=== PATIENT | male | born 1950 | race Caucasian/White ===

== ENCOUNTER → 2016-08-06 | Outpatient (CLI) | payer OTHER ==
[~2016-08-06] MED LIST: ASPI81TA28 PO; CRS10 PO; CZR25 PO; LPT40 PO; NTRGSL/4 UT; TPRSR/50 PO; TRIA0.1C20; WARF-246 PO
--- NOTE | 2016-08-07 03:58 | PAP/PSG TECHNICIAN REPORT ---
[facility] Soaker Hides Polysomnogram Report Study name: None Report date: 08/07/2016 Study date: 08/06/2016 Referring Physician: MARILU MENG M.D. Name: SARAY LORENZ Interpreting Physician: Fabrizio Costa M.D. Date of : 1950 Soaker Hides: Janice Diaz, PSGT. Sex: Male Age: 66 StudyType:C-pap Titration Weight: 243 lbs Height: 66 years, Height 6' 0" BMI: 32.95 Medications: SEE LIST OF 12 MEDICATIONS LISTED IN CHART. Patient History Pt. here for a titration sleep study, he had a baseline done on 06/17 with an ahi of 21.6.Pt. states that he isn't sure if he'll be able to have anything touch his face but is willing to try. Parameters Monitored NPSG: E1-M2, E2-M1, Fp1-M2, Fp2-M1, F3-M2, F4-M2, F4-M1, C3-M2, C4-M2, C4-M1, O1-M2, O2-M2, O2-M1, T3-M2, T4-M1, P3-M2, P4-M1, CHIN1, CHIN2, HR, EKG, Legs, PFLOW, SNOR, FLOW, CFLOW, Tidal Volume, THOR, ABDO, SpO2, PLTH, CPRESS, ETCO2 Wave, ETCO2, pH Sleep Architecture Sleep Stages Time at Lights Off 10:54:44 PM STAGES Time (min.) TST (%) Time at Lights On 2:00:44 AM Wake 81.5 -- Total Recording Time (TRT) 186.00 min. N1 12.0 11 Total Sleep Period (TSP) 130.0 min. N2 69.5 67 Total Sleep Time (TST) 104.5min. N3 7.0 7 Awake Time 81.5 min. REM 16.0 15 Wake after Sleep Onset 73.0 min. Sleep Efficiency (SE) 56 % Sleep Onset Latency (TAMMI) 8.5 min. Number of Stage 1 Shifts None Awakenings 4 Stage Changes 15 Number of REM periods 3 REM 16.0 15 REM Latency 65.5 min. NREM 88.5 85 Body Position Analysis Supine Right Left Side Prone Vertical Total Sleep Time (min.) 52.2 36.0 68.5 104.50 0.0 0.0 Total Sleep Time (%) 0% 34% 66% 100 0% N/A% Total Sleep Time REM (min.) 0.0 11.0 5.0 None 0.0 0.0 Total Sleep Time NREM (min.) 0.0 25.0 63.5 None 0.0 0.0 Intermittent Wake (min.) 52.2 15.1 14.2 None 0.0 0.0 Total Sleep Period (%) 2% None None None None None Arousals Myoclonus (PLM) * Events Count Index Events Count Index Spontaneous 3 2 Events Awake (PLMW) 0 0.0 Respiratory 2 1.1 Events Asleep w/ Arousal (PLMA) 3 1.7 PLM 3 2 Events Asleep w/o Arousal (PLMS) 25 14.4 Snoring 1 1 Total Asleep 28 16.1 Total 9 5 Total 28 9 Respiratory Analysis * CA OA MA CH H RERA Total Count 0 1 0 0 1 0 2 Index 0.0 0.6 0.0 0 0.6 0 1.1 Mean Duration 0.0 18.8 0.0 0.00 25.5 0.0 22.1 Longest Duration 0.0 18.8 0.0 0.00 0.0 0.0 25.5 Respiratory Event Summary Total Supine ~Supine Right Left Prone REM NREM Apneas Count 1 N/A 1 1 0 N/A 1 0 Index 0.6 N/A 1 1.7 0.0 N/A 4 0 Hypopneas (4% Desat) Count 1 N/A 1 1 0 N/A 1 0 Index 0.6 N/A 1 1.7 0.0 N/A 3.8 0.0 Apneas & All Hypopneas Count 2 N/A 2 2 0 N/A 2 0 Index 1.1 N/A 1 3 0 N/A 7.5 0.0 Respiratory Events (Violin Teacher+All Hyp+RERA) Count 2 N/A 2 2 0 N/A 2 0 Index 1.1 N/A 1 3.3 0.0 N/A 7.5 0.0 Respiratory Related Arousal Count 2 N/A 2 2 0 N/A 2 0 Index 1.1 N/A 1 3 0 N/A 8 0 Snoring Analysis Supine Right Left Prone REM NREM Total Snore duration 2.6 min Snores count N/A 70 64 N/A 14 120 134 Snore mean duration 1.2 Sec Snores index N/A 117 56 N/A 52.5 81.4 76.9 TST with snoring (%) 2.5% Desaturation Event Summary: Minimum %SpO2 Event Count Mean/Min/Max Duration(sec.) Desaturation Index % Time In Bed > 90 4 34.4 / 15.3 / 56.0 1.3 99.9 86 - 90 0 N/A 0.0 0.1 81 - 85 0 N/A 0.0 0.0 76 - 80 0 N/A 0.0 0.0 71 - 75 0 N/A 0.0 0.0 66 - 70 0 N/A 0.0 0.0 61 - 65 0 N/A 0.0 0.0 56 - 60 0 N/A 0.0 0.0 51 - 55 0 N/A 0.0 0.0 < 50 0 N/A 0.0 0.0 Total REM NREM Awake <50% 0.0 min. 0.0 min. 0.0 min. 0.0 min. 51 - 60% 0.0 min. 0.0 min. 0.0 min. 0.0 min. 61 - 70% 0.0 min. 0.0 min. 0.0 min. 0.0 min. 71 - 80% 0.0 min. 0.0 min. 0.0 min. 0.0 min. 81 - 90% 0.2 min. 0.0 min. 0.2 min. 0.0 min. 91 - 100% 184.1 min. 16.0 min. 88.2 min. 79.9 min. Average 94 94 94 95 Minimum SpO2 90 91 90 91 Desaturation Event Index 1.3 11.3 0.7 0.0 # Desat. Events below 89% N/A N/A N/A N/A Time(%) with Saturation below 89% 0.0 0.0 0.0 0.0 Time(min.) with Saturation below 89% 0.0 0.0 0.0 0.0 Time (mins) REM (mins) NREM (mins) % of TST SpO2 Below 90% 1 N/A N1 0.0 SpO2 Below 88% 0 0 0 0 Heart Rate Analysis Min (bpm) Max (bpm) Average (bpm) Awake 43 83 64 NREM 45 82 65 REM 46 75 65 Overall 45 82 65 Supplemental O2 Values Minimum O2 level: None Value Start Time End Time Soaker Hides Comments PAP Study: Mr. Lorenz slept in the right, left, and supine positions. No cardiac arrhythmia or PLM's noted. No bruxism noted. CPAP was initiated at +4 CMH2O and up-titrated to an optimal level of +6 CMH2O, which nearly eliminated all respiratory events and snoring. A medium [employer] Simplus, was used during titration Mr. Lorenz awoke to use the restroom zero times during the night. Mr. Lorenz awoke at 1:15 am with a lot of anxiety stating the that the mask felt like a vice, he started to hyperventilate and the mask was removed and he wanted the study to end. He stated that there was no way he could continue to wear the mask study was ended at 2:00 am.Pt. slept well up to that time and tolerated the treatment and mask well, increases were made for snoring. Therapy Event: Therapy (cm H20) 0 4 5 6 Total Time at Pressure (min.) 1.7 72.6 30.5 81.1 TST at Pressure (min.) 0.0 47.8 23.0 33.6 # Periods 1 1 1 1 Sleep Onset (min.) N/A 6.8 0.0 0.0 REM Onset (min.) N/A 72.3 0.0 28.6 Sleep Efficiency % 0 65 75 41 Wakefulness (%) 100.0 34.1 24.6 58.5 Wakefulness (min.) 1.7 24.8 7.5 47.5 NREM 1 (%) 0.0 15.8 1.6 0.0 NREM 1 (min.) 0.0 11.5 0.5 0.0 NREM 2 (%) 0.0 49.6 38.8 26.7 NREM 2 (min.) 0.0 36.0 11.9 21.6 NREM 3 (%) 0.0 0.0 0.0 8.6 NREM 3 (min.) 0.0 0.0 0.0 7.0 REM (%) 0.0 0.4 35.0 6.2 REM (min.) 0.0 0.3 10.7 5.0 # Arousals N/A 3 5 1 Arousal Index N/A 3.8 13.0 1.8 # Snore N/A 83 25 26 Snore Index N/A 104.2 65.1 46.4 AHI N/A 0.0 5.2 0.0 AHI Supine N/A N/A N/A N/A AHI Non-Supine N/A 0.0 5.2 0.0 NREM AHI N/A 0.0 0.0 0.0 REM AHI N/A 0.0 11.2 0.0 RDI N/A 0.0 5.2 0.0 # Obstructive N/A 0 1 0 # Central Ap N/A 0 0 0 # Mixed N/A 0 0 0 # Hypopneas N/A 0 1 0 RERAS N/A 0 0 0 Total Respiratory Events N/A 0 2 0 Time Below SpO2 89.00% (min.) 0.0 0.0 0.0 0.0 Mean NREM SpO2 (%) N/A 94 94 94 Mean REM SpO2 (%) N/A 93 94 92 Mean Sleep SpO2 (%) N/A 94 94 93 Min NREM SpO2 (%) N/A 90 93 92 Min REM SpO2 (%) N/A 93 92 91 Position Supine (min.) 0.0 0.0 0.0 0.0 Position Non-supine (min.) 0.0 47.8 23.0 33.6 LM Index Sleep N/A 25.1 20.8 0.0 LM Index NREM N/A 25.3 0.0 0.0 LM Index REM N/A 0.0 44.9 0.0 Mean Heart Rate (bpm) N/A 66 64 64 Min Heart Rate (bpm) N/A 46 49 45
--- NOTE | 2016-08-10 18:44 | POLYSOMNOGRAPH REPORT ---
CLINICAL DATA: A 66-year-old male with a BMI of 33 referred by Cici Fontenot and myself for a CPAP titration study. He had a baseline sleep study done on June 17, which showed an AHI of 21.6. He was somewhat reluctant to consider CPAP. SLEEP ARCHITECTURE: Total sleep period was 130 minutes. Total sleep time was 104.5 minutes divided between 88.5 minutes of non-REM sleep and 16 minutes of REM sleep. Sleep onset latency was 8.5 minutes. REM latency was 65.5 minutes. Sleep efficiency was 56%. Awake after sleep onset was 73 minutes. Sleep consisted of stage N1 11%, N2 67% N3 7%, and REM 15%. AROUSAL DATA: Nine arousals were recorded for an index of 5 per hour. PLM DATA: Twenty eight limb movements during sleep were noted for an index of 16.1 per hour with arousal index of 1.7 per hour. RESPIRATORY DATA: The AHI was 1.1. There was 1 obstructive apneic episode, 18.8 seconds in duration. There was 1 hypopneic episode, 25.5 seconds in duration. OXIMETRY DATA: No hypoxemia was seen. Oxygen sis was 90%. Mean saturation was 94%. EKG: Heart rates ranged from 45-82 beats per minute. No arrhythmias were noted. SUPERINTENDENT HORTICULTURE'S COMMENTS AND TREATMENT SUMMARY: The patient slept in the right, left, and supine positions. CPAP was started using a medium [employer] Simplus mask and was titrated up to 6 cm of water pressure. At 6 cm of water pressure, the patient slept for 33.6 minutes with an AHI of 0. He awoke at 1:15 a.m. with a lot of anxiety stating that the mask felt like a vise on his face and that he could no longer continue to wear the mask. The study was ended at 2:00 a.m. IMPRESSION: Moderate sleep apnea/hypopnea with a diagnostic apnea-hypopnea index of 21.6 corrected with CPAP 6 cm of water pressure using a [employer] medium Simplus mask. The patient had severe intolerance of the mask/CPAP and stopped the study before it was completed. RECOMMENDATIONS: The patient will be seen back in the clinic to discuss options for therapy. DARWIN
== END | disposition home or self-care (01) ==
LOC: C.NEUR 21:00
PROVIDERS: ATTEND Allergy & Immunology Allergy
DX: G47.33 Obstructive sleep apnea (adult) (pediatric) (principal)

== ENCOUNTER → 2016-08-18 | Outpatient (CLI) | payer OTHER ==
[~2016-08-18] VITALS: Ht 182.9 cm; Wt 108.0 kg
[2016-08-18 16:03] VITALS: BP 124/83; PULSE 47; Ht 182.9 cm; Wt 108.0 kg
== END | disposition home or self-care (01) ==
LOC: C.NEUR 14:38
PROVIDERS: ATTEND Internal Medicine Pulmonary Disease
DX: G47.33 Obstructive sleep apnea (adult) (pediatric) (principal); I25.10 Atherosclerotic heart disease of native coronary artery without angina pectoris; I10 Essential (primary) hypertension; I48.0 Paroxysmal atrial fibrillation; F40.240 Claustrophobia; R06.83 Snoring

== ENCOUNTER 2016-10-27 14:39 | Observation (INO) | payer OTHER ==
[~2016-10-27] VITALS: Ht 182.9 cm; Wt 103.1 kg
[~2016-10-27 14:39] MED LIST changes: -ASPI81TA28 PO; -CZR25 PO; -LPT40 PO; -TPRSR/50 PO
[2016-10-27] MEDS ORDERED: ASPIRIN 324 MG CHEW PO STA (16:15)
[2016-10-27] MEDS ORDERED: NITROGLYCERIN 0.4 MG SL PER TAB CHARGE SL STA (16:15)
--- NOTE | 2016-10-27 16:18 | EMERGENCY ROOM VISIT NOTE ---
History Report prepared by García: Duc Alejandre Under the Supervision of: Dr. Joby Soto M.D. First contact with patient: 16:07 Chief Complaint: CHEST PAIN Stated Complaint: DIZZY, TINGLING LEGS, CHEST DISCOMFORT Nursing Triage Summary: Pt c/o dizzy spell at 1130 at work and legs went numb and "weighed about 100 pounds a piece" and he felt "flushed", pt then felt "discomfort" a "tightness" in the left side of his chest. Pt then went home, called tele nurse and came to ER. At this time pt denies dizziness and numb/heavy legs, pt c/o only of discomfort in his chest. Hx afib. History of Present Illness The patient is a 66 year old male who presents to the Emergency Room with complaints of an episode of dizziness that occurred while at work around 1130 today. The patient states that he felt so dizzy that he "blacked out" for a second. He denies feeling as though his heart was beating faster. He did not fall during episode of dizziness. Associated symptoms include numbness in legs. He adds that his legs felt as though they weighed "100 pounds a piece." Upon arrival to the ED, the patient also began to experience a "squeezing of left chest." This sensation mostly resolved although he does continue to complain of a persistent "pressure" to left chest at this time. The patient denies currently feeling dizzy or experiencing numbness/heaviness to legs. The patient has a history of atrial fibrillation and a prior heart attack. 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 He denies hematochezia, melena, urinary symptoms, or any additional associated symptoms. Source of History: patient Onset: 1130 today Position: other (Global ) Timing: resolved Modifying Factors (Worsening): other (None) Modifying Factors (Relieving): other (None) Associated Symptoms: + numbness (In legs ), No hematochezia, No melena, No urinary symptoms Review of Systems See HPI for pertinent positives & negatives. A total of 10 systems reviewed and were otherwise negative. Past Medical & Surgical Medical Problems: (1) Atrial fibrillation (2) Near syncope Family History Diabetes mellitus Heart disease Social History Smoking Status: Former Smoker Marital Status: Housing Status: lives with family Occupation Status: retired Current/Historical Medications Scheduled Aspirin (Aspirin Ec), 81 MG PO DAILY Atorvastatin (Atorvastatin Calcium), 20 MG PO QPM Losartan Potassium (Losartan Potassium), 25 MG PO QPM Metoprolol Succinate (Metoprolol Succinate ER), 50 MG PO BID Warfarin Sodium (Warfarin Sodium), 7.5 MG PO 2XWK Warfarin Sodium (Warfarin Sodium), 5 MG PO 5XWK Scheduled PRN Nitroglycerin (Nitrostat), 0.4 MG UT UD PRN for Chest Pain Allergies Coded Allergies: BEE STING (Verified Allergy, Severe, CHOKING WITH GENERALIZED SWELLING, ) Procaine (Verified Allergy, Unknown, ANAPHYLAXIS, 04/24/15) XYLOCAINE/LIDOCAINE OKAY [place] (Verified Allergy, Unknown, HIVES, 04/24/15) Physical Exam Vital Signs Date Time Temp Pulse Resp B/P Pulse Ox O2 Delivery O2 Flow Rate FiO2 10/27/16 18:54 81 18 151/105 97 Room Air 10/27/16 17:00 59 18 119/80 94 Room Air 10/27/16 16:24 77 10/27/16 16:20 95 Room Air 10/27/16 16:20 96 18 125/105 95 Room Air 10/27/16 14:48 36.5 70 18 150/93 98 Room Air 10/27/16 14:46 98 Room Air Physical Exam GENERAL: Patient appears to be experiencing minimal distress. HEENT: No acute trauma, normocephalic atraumatic, mucous membranes moist, no nasal congestion, no scleral icterus. NECK: No stridor, no adenopathy, no meningismus, trachea is midline. LUNGS: No dyspnea. Clear to auscultation and equal bilaterally. No wheeze, no rhonchi. HEART: Regular rate and rhythm. No murmurs, rubs, gallops appreciated. ABDOMEN: Soft, nontender, bowel sounds positive, no masses appreciated, no peritonitis. BACK: No midline tenderness, no CVA tenderness EXTREMITIES: Normal motion all extremities, no cyanosis, no edema. NEUROLOGIC: Alert and oriented, no acute motor or sensory deficits, no focal weakness, cranial nerves grossly intact. SKIN: No rash, no jaundice, no diaphoresis. Medical Decision & Procedures ER Provider Diagnostic Interpretation: X ray results are stated below per my interpretation and the radiologist's interpretation. SINGLE VIEW CHEST CLINICAL HISTORY: Atypical chest pain. FINDINGS: An AP, portable, upright chest radiograph is compared to study dated 09/20/2014. The examination is degraded by portable technique and apical lordotic positioning. The patient is status post midline sternotomy. The heart is markedly enlarged and there is atherosclerotic calcification of the thoracic aorta. The pulmonary vasculature is noncongested. Chronic interstitial thickening is unchanged. There is left basilar atelectasis. No airspace consolidation, large pleural effusion, or pneumothorax is seen. The bony thorax is grossly intact. IMPRESSION: Cardiomegaly with no acute cardiopulmonary abnormality. Electronically signed by: Jamil Serrano M.D. 10/27/2016 4:32 PM Dictated Date/Time: 10/27/2016 4:31 PM Laboratory Results 10/27/16 16:20 Red Blood Count 5.04, Mean Corpuscular Volume 85.9, Mean Corpuscular Hemoglobin 29.8, Mean Corpuscular Hemoglobin Concent 34.6, Mean Platelet Volume 10.1, Neutrophils (%) (Auto) 61.1, Lymphocytes (%) (Auto) 28.7, Monocytes (%) (Auto) 8.4, Eosinophils (%) (Auto) 1.3, Basophils (%) (Auto) 0.3, Neutrophils # (Auto) 3.72, Lymphocytes # (Auto) 1.75, Monocytes # (Auto) 0.51, Eosinophils # (Auto) 0.08, Basophils # (Auto) 0.02 10/27/16 16:20 Test 10/27/16 16:20 10/27/16 17:13 White Blood Count 6.09 K/uL (4.8-10.8) Red Blood Count 5.04 M/uL (4.7-6.1) Hemoglobin 15.0 g/dL (14.0-18.0) Hematocrit 43.3 % (42-52) Mean Corpuscular Volume 85.9 fL (80-100) Mean Corpuscular Hemoglobin 29.8 pg (25-34) Mean Corpuscular Hemoglobin Concent 34.6 g/dl (32-36) Platelet Count 215 K/uL (130-400) Mean Platelet Volume 10.1 fL (7.4-10.4) Neutrophils (%) (Auto) 61.1 % Lymphocytes (%) (Auto) 28.7 % Monocytes (%) (Auto) 8.4 % Eosinophils (%) (Auto) 1.3 % Basophils (%) (Auto) 0.3 % Neutrophils # (Auto) 3.72 K/uL (1.4-6.5) Lymphocytes # (Auto) 1.75 K/uL (1.2-3.4) Monocytes # (Auto) 0.51 K/uL (0.11-0.59) Eosinophils # (Auto) 0.08 K/uL (0-0.5) Basophils # (Auto) 0.02 K/uL (0-0.2) RDW Standard Deviation 40.6 fL (36.4-46.3) RDW Coefficient of Variation 12.9 % (11.5-14.5) Immature Granulocyte % (Auto) 0.2 % Immature Granulocyte # (Auto) 0.01 K/uL (0.00-0.02) Anion Gap 7.0 mmol/L (3-11) Est Creatinine Clear Calc Drug Dose 91.0 ml/min Estimated GFR () 90.5 Estimated GFR (Non- 78.1 BUN/Creatinine Ratio 17.8 (10-20) Calcium Level 8.9 mg/dl (8.5-10.1) Total Creatine Kinase 165 U/L (39-308) Creatine Kinase MB 2.3 ng/ml (0.5-3.6) Creatine Kinase MB Ratio 1.4 (0-3.0) Troponin I 0.103 ng/ml (0-0.045) Prothrombin Time 25.8 SECONDS (9.0-12.0) Prothromb Time International Ratio 2.3 (0.9-1.1) Activated Partial Thromboplast Time 32.4 SECONDS (21.0-31.0) Partial Thromboplastin Ratio 1.2 Laboratory results as reviewed by me. Medications Administered Medications (Trade) Dose Ordered Sig/Francisco Route Start Time Stop Time Status Last Admin Dose Admin Aspirin (Aspirin Chew) 324 mg NOW STAT PO 10/27/16 16:15 10/27/16 16:16 DC 10/27/16 16:22 324 MG Nitroglycerin (Nitrostat Tab) 0.2 mg NOW STAT SL 10/27/16 16:15 10/27/16 16:16 DC 10/27/16 16:15 0.2 MG ECG Indication: chest pain Rate (beats per minute): 69 Rhythm: atrial fibrillation Findings: no acute ischemic change Comparison ECG Date: Sep 21, 2014 Change: no significant change ED Course 1610: The patient was evaluated in room C9. A complete history and physical exam was performed. 1615: The Nitroglycerin 0.2 mg SL, Aspirin 324 mg PO. 1706: The patient has a positive Troponin. 1714: Upon reevaluation, there is no further chest pain. He is agreeable with the treatment plan at this time. 171: I discussed the patient's case with Dr. Shepard ([facility]). She will evaluate the patient for further management and care. Medical Decision Differential: Cardiac Ischemia (STEMI, NSTEMI, Unstable Angina, etc), Aortic Dissection, Arrhythmia, Pulmonary Embolism, Pneumonia, Pneumothorax, MSK, Infectious, Pericarditis/Myocarditis, Esophageal Rupture, Gastrointestinal, amongst other pathologies entertained. 66 yr old male with CABG 16 yrs ago arrives with near syncope/lightheadedness now resolved though mild left chest discomfort which resolved with SLNTG. Afib on EKG with similar morphology to previous EKG. NO STEMI. CXR clear and no evidence dissection. On coumadin and INR therapeutic thus will hold on heparin. Trop is elevated though unclear if this is now his baseline or whether new. Will need to be considered NSTEMI until proven otherwise. Stable throughout ED stay and agreeable to coming in for further evaluation. Consults Time Called: 1714 Consulting Physician: Dr. Shepard ([facility]) Returned Call: 1715 I discussed the patient's case with Dr. Shepard ([facility]). She will evaluate the patient for further management and care. Impression Primary Impression: NSTEMI (non-ST elevated myocardial infarction) Scribe Attestation The scribe's documentation has been prepared under my direction and personally reviewed by me in its entirety. I confirm that the note above accurately reflects all work, treatment, procedures, and medical decision making performed by me. Departure Information Dispostion Being Evaluated By Hospitalist Ankit Hull M.D. (PCP) Patient Instructions My [facility]
--- NOTE | 2016-10-27 16:33 | DIAGNOSTIC IMAGING REPORT ---
SINGLE VIEW CHEST CLINICAL HISTORY: Atypical chest pain. FINDINGS: An AP, portable, upright chest radiograph is compared to study dated 09/20/2014. The examination is degraded by portable technique and apical lordotic positioning. The patient is status post midline sternotomy. The heart is markedly enlarged and there is atherosclerotic calcification of the thoracic aorta. The pulmonary vasculature is noncongested. Chronic interstitial thickening is unchanged. There is left basilar atelectasis. No airspace consolidation, large pleural effusion, or pneumothorax is seen. The bony thorax is grossly intact. IMPRESSION: Cardiomegaly with no acute cardiopulmonary abnormality. Electronically signed by: Jamil Serrano M.D. 10/27/2016 4:32 PM Dictated Date/Time: 10/27/2016 4:31 PM
[2016-10-27 16:36] LABS: BASO % 0.3 %; BASO ABS # 0.02 K/uL (0-0.2); COMPLETE YES; EOS % 1.3 %; HEMATOCRIT 43.3 % (42-52); IG% 0.2 %; LYMPH % 28.7 %; LYMPH ABS # 1.75 K/uL (1.2-3.4); MEAN CELL VOLUME 85.9 fL (80-100); MEAN CORPUSCULAR HEMOGLOBIN 29.8 pg (25-34); MEAN CORPUSCULAR HGB CONC 34.6 g/dl (32-36); MEAN PLATELET VOLUME 10.1 fL (7.4-10.4); MONO % 8.4 %; NEUT % 61.1 %; PLATELET COUNT 215 K/uL (130-400); RED BLOOD COUNT 5.04 M/uL (4.7-6.1); WHITE BLOOD COUNT 6.09 K/uL (4.8-10.8)
[2016-10-27] MEDS ORDERED: LPT40 PO (16:47)
[2016-10-27] MEDS ORDERED: CZR25 PO (16:47)
[2016-10-27 16:57] LABS: BUN/CREATININE RATIO 17.8 (10-20); CALCIUM 8.9 mg/dl (8.5-10.1); POTASSIUM 4.2 mmol/L (3.5-5.1)
[2016-10-27 17:04] LABS: CKMB/CK RATIO 1.4 (0-3.0)
[2016-10-27 17:30] LABS: INR 2.3 (0.9-1.1); PARTIAL THROMBOPLASTIN RATIO 1.2; PROTHROMBIN TIME (PATIENT) 25.8 SECONDS (9.0-12.0)
[2016-10-27] MEDS ORDERED: TPRSR/50 PO (18:06)
[2016-10-27] MEDS ORDERED: ASPI81TA28 PO (18:06)
--- NOTE | 2016-10-27 19:06 | History and Physical ---
History & Physical Date & Time of Service: Oct 27, 2016 at 18:53 Chief Complaint: Dizzy, Tingling Legs, Chest Discomfort Primary Care Physician: Ankit Turpin M.D. History of Present Illness Source: patient, family, clinic records, hospital records This patient is a pleasant 66-year-old male that presents the emergency department with complaints of a presyncopal episode earlier today. The patient was at work. He was bending over picking up something off of the floor when he all of a sudden felt a sharper pain in his left lower abdomen. He then started to see spots. He said that his legs felt heavy. he reports that he blacked out for a second. He did not fall. He denies any injuries. The pain in the left lower abdomen was fleeting. The episode occurred at approximately 12:30 PM today. He does note that intermittently over the last few years he has felt a sharp pain in his left lower abdomen. He denies any fever or chills. No changes in bowel habits. The patient's past medical history is significant for paroxysmal atrial fibrillation, coronary artery disease status post [place] and a ventricular aneurysm. Workup in the emergency department reveals an elevated troponin at 0.103. The patient is anticoagulated on Coumadin. INR is therapeutic at 2.5. Other labs were unremarkable. EKG shows atrial fibrillation with a rate of 69 bpm. No acute ischemic changes noted. Past Medical/Surgical History Medical Problems: (1) Atrial fibrillation Ischemic cardiomyopathy with an EF of 40-50% according to an echo performed and 10/16 Coronary artery disease status post [place] Status post CABG 3 and apical aneurysm resection in 1999 at [place] History of diverticulitis Obstructive sleep apnea Paroxysmal atrial fibrillation Status post sinus surgery Family History Diabetes mellitus Heart disease Mother of ovarian cancer at the age of 68. She also had diabetes. Father of an WV at the age of 71. Social History Smoking Status: Former Smoker (quit smoking in the 80s.) Alcohol Use: occasionally Marital Status: Housing status: lives with significant other, other Occupational Status: employed Immunizations History of Influenza Vaccine: No Influenza Vaccine Date: May 12, 2007 History of Tetanus Vaccine?: Yes Tetanus Immunization Date: Feb 18, 2007 History of Pneumococcal: Yes Pneumococcal Date: Sep 03, 2006 History of Hepatitis B Vaccine: No Multi-Drug Resistant Organisms History of MDRO: No Allergies Coded Allergies: BEE STING (Verified Allergy, Severe, CHOKING WITH GENERALIZED SWELLING, ) Procaine (Verified Allergy, Unknown, ANAPHYLAXIS, 04/24/15) XYLOCAINE/LIDOCAINE OKAY [place] (Verified Allergy, Unknown, HIVES, 04/24/15) Home Medications Scheduled Aspirin (Aspirin Ec), 81 MG PO DAILY Atorvastatin (Atorvastatin Calcium), 20 MG PO QPM Losartan Potassium (Losartan Potassium), 25 MG PO QPM Metoprolol Succinate (Metoprolol Succinate ER), 50 MG PO BID Warfarin Sodium (Warfarin Sodium), 7.5 MG PO 2XWK Warfarin Sodium (Warfarin Sodium), 5 MG PO [id number] Scheduled PRN Nitroglycerin (Nitrostat), 0.4 MG UT UD PRN for Chest Pain Review of Systems 10 system review performed and negative unless noted in HPI or below Physical Exam Vital Signs Date Time Temp Pulse Resp B/P Pulse Ox O2 Delivery O2 Flow Rate FiO2 10/27/16 17:00 59 18 119/80 94 Room Air 10/27/16 16:24 77 10/27/16 16:20 95 Room Air 10/27/16 16:20 96 18 125/105 95 Room Air 10/27/16 14:48 36.5 70 18 150/93 98 Room Air 10/27/16 14:46 98 Room Air General Appearance: no apparent distress Head: normocephalic Eyes: EOMI ENT: + pertinent finding (oral mucosa moist) Neck: no JVD Respiratory/Chest: lungs clear Cardiovascular: no murmur, + irregularly irregular Abdomen/GI: normal bowel sounds, soft, + pertinent finding (mild tenderness to palpation noted in the suprapubic region and the left lower quadrant. No guarding or rebound tenderness.) Extremities/Musculoskelatal: no calf tenderness, no pedal edema Neurologic/Psych: no motor/sensory deficits, oriented x 3 Skin: warm/dry Diagnostics Laboratory Results Results Past 24 Hours Test 10/27/16 16:20 10/27/16 17:13 Range/Units White Blood Count 6.09 4.8-10.8 K/uL Red Blood Count 5.04 4.7-6.1 M/uL Hemoglobin 15.0 14.0-18.0 g/dL Hematocrit 43.3 42-52 % Mean Corpuscular Volume 85.9 80-100 fL Mean Corpuscular Hemoglobin 29.8 25-34 pg Mean Corpuscular Hemoglobin Concent 34.6 32-36 g/dl Platelet Count 215 130-400 K/uL Mean Platelet Volume 10.1 7.4-10.4 fL Neutrophils (%) (Auto) 61.1 % Lymphocytes (%) (Auto) 28.7 % Monocytes (%) (Auto) 8.4 % Eosinophils (%) (Auto) 1.3 % Basophils (%) (Auto) 0.3 % Neutrophils # (Auto) 3.72 1.4-6.5 K/uL Lymphocytes # (Auto) 1.75 1.2-3.4 K/uL Monocytes # (Auto) 0.51 0.11-0.59 K/uL Eosinophils # (Auto) 0.08 0-0.5 K/uL Basophils # (Auto) 0.02 0-0.2 K/uL RDW Standard Deviation 40.6 36.4-46.3 fL RDW Coefficient of Variation 12.9 11.5-14.5 % Immature Granulocyte % (Auto) 0.2 % Immature Granulocyte # (Auto) 0.01 0.00-0.02 K/uL Sodium Level 142 136-145 mmol/L Potassium Level 4.2 3.5-5.1 mmol/L Chloride Level 108 98-107 mmol/L Carbon Dioxide Level 27 21-32 mmol/L Anion Gap 7.0 3-11 mmol/L Blood Urea Nitrogen 18 7-18 mg/dl Creatinine 1.00 0.60-1.40 mg/dl Est Creatinine Clear Calc Drug Dose 91.0 ml/min Estimated GFR () 90.5 Estimated GFR (Non- 78.1 BUN/Creatinine Ratio 17.8 10-20 Random Glucose 84 70-99 mg/dl Calcium Level 8.9 8.5-10.1 mg/dl Total Creatine Kinase 165 39-308 U/L Creatine Kinase MB 2.3 0.5-3.6 ng/ml Creatine Kinase MB Ratio 1.4 0-3.0 Troponin I 0.103 0-0.045 ng/ml Prothrombin Time 25.8 9.0-12.0 SECONDS Prothromb Time International Ratio 2.3 0.9-1.1 Activated Partial Thromboplast Time 32.4 21.0-31.0 SECONDS Partial Thromboplastin Ratio 1.2 Diagnostic Radiology Patient: SARAY HOUSER Address1: [address] [place] [address] Rec: [id number] Address2: Acct ID: [id number] [facility] Zip: [place] [address] Date: 1950 Sex: M Room/Bed: Ref Phy: Matheus Coronado M.D. SC: CHARITO Att Phy: Report #: [id number] Tara Phy: Ankit Turpin M.D. Test: [id number] Admit Phy: Practicing Md Anesthesiologist: JACKIE Interpreting Phy: Jamil Serrano M.D. Diagnosis: DIZZY, TINGLING LEGS, CHEST DISCOMFORT Ordering Phy: Joby Soto M.D. Service Date: 10/27/16 Admit Date: 10/27/16 MNE: [id number] CONF: DICTATED BY: Jamil Serrano M.D.]] CC: Matheus Coronado M.D. Hester, Christopher E., M.D. McKinley, Daniel F., M.D. Endcc: [~ rep ct add3]] SINGLE VIEW CHEST CLINICAL HISTORY: Atypical chest pain. FINDINGS: An AP, portable, upright chest radiograph is compared to study dated 09/20/2014. The examination is degraded by portable technique and apical lordotic positioning. The patient is status post midline sternotomy. The heart is markedly enlarged and there is atherosclerotic calcification of the thoracic aorta. The pulmonary vasculature is noncongested. Chronic interstitial thickening is unchanged. There is left basilar atelectasis. No airspace consolidation, large pleural effusion, or pneumothorax is seen. The bony thorax is grossly intact. IMPRESSION: Cardiomegaly with no acute cardiopulmonary abnormality. Electronically signed by: Jamil Serrano M.D. 10/27/2016 4:32 PM Dictated Date/Time: 10/27/2016 4:31 PM The status of this report is Signed. Draft = Not yet reviewed or approved by Radiologist. Signed = Reviewed and approved by Radiologist. EKG A. fib 69 bpm Q waves noted in the anterior and lateral leads Impression Assessment and Plan 66-year-old male with a significant cardiac history presents emergency department with a presyncopal episode preceded by fleeting left lower quadrant abdominal pain While in the emergency department, developed chest pressure that was relieved with nitroglycerin. Now pain-free. Mild elevation in troponin at 0.103 Presyncopal episode and developing chest pain/pressure in the emergency department-The patient could've had a burst of A. fib causing his pre-syncopal episode. The patient does however have an elevated troponin at 0.103. Troponin were also mildly elevated in September. This could be chronic. -Observe in telemetry -Trend cardiac enzymes -Echocardiogram just performed last week. No need to repeat now -Cardiology consult -Continue outpatient regimen as follows: Aspirin 81 mg daily, atorvastatin 20 mg daily, losartan 25 mg daily, metoprolol extended release 50 mg twice daily, warfarin 5 mg Wednesday, Wednesday and Wednesday, warfarin 7.5 mg on Wednesday, , Wednesday Obstructive sleep apnea-currently not using a CPAP -Follow up as an outpatient -Patient is being fitted for a special mask A. fib-rate controlled as noted above -Coumadin as noted above -Daily INR DVT prophylaxis -Coumadin -Teds, SCDs CODE STATUS -LEVEL I FULL CODE This chart was completed in part utilizing [employer] Speech Voice Recognition software. Attempts were made to minimize the grammatical errors, random word insertions, pronoun errors and incomplete sentences. Any formal questions or concerns about the content, text or information contained within the body of this dictation should be directly addressed to the provider for clarification. Level of Care Telemetry Resuscitation Status FULL RESUSCITATION VTE Prophylaxis Risk Level: Low Given or contraindicated: Warfarin (Coumadin), T.E.D. Stockings, SCD's Reviewed: Pt Seen/Exam by Me History Physician Slab Miller Operator Supervision Note: I interviewed and examined the patient. Discussed with EFRAIN Rodriguez and agree with findings and plan as documented in the note. Any exceptions or clarifications are listed here: This is a 66-year-old male with history of ischemic cardiomyopathy, CAD status post three-vessel CABG, paroxysmal atrial fibrillation chronic anticoagulation, who presents today with a presyncopal episode and subsequent chest pain while in the ER that was left-sided and was relieved with nitroglycerin. He had a positive troponin in the ER of 0.1. To clarify from above, he reports he did not have any left groin pain until he was sitting in the ER; he did not have any pain at the time he bent over and had the presyncopal episode. He has never had anything like this happen before. He reports it took about 30 minutes before he finally felt like he couldn't focus with his vision again. He did not have any weakness or slurred speech, he then states that he performed a "stroke test" on himself with his coworkers and he had no findings consistent with stroke. He simply felt very lightheaded after bending over and standing back up but never actually passed completely out as he never lost tone in his body or fell down. Vital signs reviewed, orthostatic vital signs have not been performed yet at the time of admission No acute distress alert awake and oriented 3 Irregularly irregular rhythm with a normal rate, no murmurs gallops or rubs appreciated Lungs clear to auscultation bilaterally without wheezes, rales or rhonchi Abdomen soft, nondistended, nontender, positive bowel sounds, no inguinal hernias, no scrotal masses, no tenderness in the left groin Extremities trace pitting edema to mid tibia bilaterally Skin no rashes 66-year-old male with history of CAD and ischemic cardiomyopathy, here with the presyncopal episode, typical anginal chest pain, and a positive troponin. Presyncopal episode may have been vasovagal versus orthostatic in nature. -Serial cardiac biomarkers and ECGs-if troponin trends upward, would likely need cardiac catheterization -Cardiology consult appreciated -Telemetry monitoring -Orthostatic vital signs to be checked every shift Documented By: Maxine Shepard
[2016-10-27] MEDS ORDERED: WARFARIN SOD 5 MG TAB PO SCH (19:15)
[2016-10-27] MEDS ORDERED: ONDANSETRON INJ 2 MG/ML 2 ML VIAL IV PRN (19:15)
[2016-10-27] MEDS ORDERED: ALUMINUM/MAGNESIUM/SIMETH (MAALOX MAX) 30 ML UDC PO PRN (19:15)
[2016-10-27] MEDS ORDERED: ACETAMINOPHEN 325 MG TAB PO PRN (19:15)
[2016-10-27] MEDS ORDERED: NITROGLYCERIN 0.4 MG SL PER TAB CHARGE SL PRN (19:15)
[2016-10-27] MEDS ORDERED: METOPROLOL SUCC 50MG EXT REL TAB PO SCH (21:00)
[2016-10-27] MEDS ORDERED: IV FLUIDS COMPLETED PRN (21:15)
[2016-10-27] MEDS: ATORVASTATIN 20 MG TAB PO SCH (21:40)
[2016-10-27] MEDS: LOSARTAN POTASSIUM 25 MG TAB PO SCH (21:41)
[2016-10-27] MEDS ORDERED: WARFARIN SOD 5 MG TAB PO ONE (22:15)
[2016-10-28] VITALS (9 sets, daily range): BP systolic 118–148; BP diastolic 64–99; PULSE 52–77; TEMP 36.5–37.3; O2SAT 94–97; Ht 182.9 cm; Wt 103.1 kg
[2016-10-28 01:40] LABS: CKMB/CK RATIO 1.3 (0-3.0)
[2016-10-28] MEDS ORDERED: INFLUENZA VIRUS QUAD VACCINE 0.5 ML SYR IM. ONE (02:45)
[2016-10-28] MEDS ORDERED: INFLUENZA ADMINISTRATION CHARGE ONE (02:45)
[2016-10-28 03:35] LABS: BASO % 0.2 %; BASO ABS # 0.01 K/uL (0-0.2); COMPLETE YES; EOS % 1.8 %; HEMATOCRIT 39.4 % (42-52); LYMPH ABS # 1.72 K/uL (1.2-3.4); MEAN CELL VOLUME 85.7 fL (80-100); MEAN CORPUSCULAR HEMOGLOBIN 30.4 pg (25-34); MEAN CORPUSCULAR HGB CONC 35.5 g/dl (32-36); MEAN PLATELET VOLUME 9.8 fL (7.4-10.4); MONO % 10.4 %; NEUT % 52.6 %; PLATELET COUNT 192 K/uL (130-400); WHITE BLOOD COUNT 4.92 K/uL (4.8-10.8)
[2016-10-28 03:54] LABS: PROTHROMBIN TIME (PATIENT) 22.1 SECONDS (9.0-12.0)
[2016-10-28 04:00] LABS: BUN/CREATININE RATIO 16.1 (10-20); CALCIUM 8.3 mg/dl (8.5-10.1); CREATININE 1.1 mg/dl (0.60-1.40); MAGNESIUM 2.4 mg/dl (1.8-2.4); POTASSIUM 3.9 mmol/L (3.5-5.1)
--- NOTE | 2016-10-28 07:27 | Progress Note ---
Progress Note Date of Service Oct 28, 2016. Progress Note Received call at 2:15 am about patient become bradycardic in the 40's with pauses as long as 2 secs I went to assess the patient, he complained of some mild chest "pressure", no pain- resolved shortly after Troponin elevated from admission but trending down. EKG did not capture the bradycardic episodes Patient was watched for the next few hours and did not have any further episodes However at about 6 am, he had what looked like runs of tachycardia EKG was repeated and did not capture this Wonder about Tachy-claudia / sick sinus? especially given his presentation after syncopal episode Cardiology consulted.
[2016-10-28] MEDS: ASPIRIN 81 MG ECTAB PO SCH (08:04)
--- NOTE | 2016-10-28 08:17 | Hospitalist Progress Note ---
Hospitalist Progress Note Date of Service Oct 28, 2016. Subjective Pt evaluation today including: conversation w/ patient, physical exam, chart review Medications Medications (Trade) Dose Ordered Sig/Francisco Route Start Time Stop Time Status Last Admin Dose Admin Aspirin (Aspirin Chew) 324 mg NOW STAT PO 10/27/16 16:15 10/27/16 16:16 DC 10/27/16 16:22 324 MG Nitroglycerin (Nitrostat Tab) 0.2 mg NOW STAT SL 10/27/16 16:15 10/27/16 16:16 DC 10/27/16 16:15 0.2 MG Aspirin (Ecotrin Tab) 81 mg DAILY PO 10/28/16 09:00 11/27/16 08:59 10/28/16 08:04 81 MG Atorvastatin Calcium (Lipitor Tab) 20 mg QPM PO 10/27/16 21:00 11/26/16 20:59 10/27/16 21:40 20 MG Losartan Potassium (coZAAR TAB) 25 mg QPM PO 10/27/16 21:00 11/26/16 20:59 10/27/16 21:41 25 MG Metoprolol Succinate (Toprol Xl Tab) 50 mg BID PO 10/27/16 21:00 11/26/16 20:59 Future Hold 10/27/16 21:39 50 MG Warfarin Sodium (Coumadin Tab) 5 mg NOW ONCE PO 10/27/16 22:15 10/27/16 22:40 DC 10/27/16 22:15 5 MG Objective Vital Signs Date Time Temp Pulse Resp B/P Pulse Ox O2 Delivery O2 Flow Rate FiO2 10/28/16 04:00 Room Air 10/28/16 03:45 36.8 66 18 131/75 95 Room Air 10/28/16 00:03 36.6 52 22 143/93 95 Room Air 146/99 148/92 10/28/16 00:00 Room Air 10/27/16 23:45 36.5 72 18 119/72 96 10/27/16 23:08 119/72 10/27/16 21:43 72 10/27/16 21:42 64 18 128/85 96 Room Air 10/27/16 20:29 65 18 145/95 95 Room Air 10/27/16 18:54 81 18 151/105 97 Room Air 10/27/16 17:00 59 18 119/80 94 Room Air 10/27/16 16:24 77 10/27/16 16:20 95 Room Air 10/27/16 16:20 96 18 125/105 95 Room Air 10/27/16 14:48 36.5 70 18 150/93 98 Room Air 10/27/16 14:46 98 Room Air Laboratory Results Last 24 Hours Test 10/27/16 16:20 10/27/16 17:13 10/28/16 01:00 10/28/16 03:06 White Blood Count 6.09 K/uL 4.92 K/uL Red Blood Count 5.04 M/uL 4.60 M/uL Hemoglobin 15.0 g/dL 14.0 g/dL Hematocrit 43.3 % 39.4 % Mean Corpuscular Volume 85.9 fL 85.7 fL Mean Corpuscular Hemoglobin 29.8 pg 30.4 pg Mean Corpuscular Hemoglobin Concent 34.6 g/dl 35.5 g/dl Platelet Count 215 K/uL 192 K/uL Mean Platelet Volume 10.1 fL 9.8 fL Neutrophils (%) (Auto) 61.1 % 52.6 % Lymphocytes (%) (Auto) 28.7 % 35.0 % Monocytes (%) (Auto) 8.4 % 10.4 % Eosinophils (%) (Auto) 1.3 % 1.8 % Basophils (%) (Auto) 0.3 % 0.2 % Neutrophils # (Auto) 3.72 K/uL 2.59 K/uL Lymphocytes # (Auto) 1.75 K/uL 1.72 K/uL Monocytes # (Auto) 0.51 K/uL 0.51 K/uL Eosinophils # (Auto) 0.08 K/uL 0.09 K/uL Basophils # (Auto) 0.02 K/uL 0.01 K/uL RDW Standard Deviation 40.6 fL 40.3 fL RDW Coefficient of Variation 12.9 % 12.9 % Immature Granulocyte % (Auto) 0.2 % 0.0 % Immature Granulocyte # (Auto) 0.01 K/uL 0.00 K/uL Sodium Level 142 mmol/L 143 mmol/L Potassium Level 4.2 mmol/L 3.9 mmol/L Chloride Level 108 mmol/L 108 mmol/L Carbon Dioxide Level 27 mmol/L 26 mmol/L Anion Gap 7.0 mmol/L 9.0 mmol/L Blood Urea Nitrogen 18 mg/dl 18 mg/dl Creatinine 1.00 mg/dl 1.10 mg/dl Est Creatinine Clear Calc Drug Dose 91.0 ml/min 82.9 ml/min Estimated GFR () 90.5 80.6 Estimated GFR (Non- 78.1 69.6 BUN/Creatinine Ratio 17.8 16.1 Random Glucose 84 mg/dl 109 mg/dl Calcium Level 8.9 mg/dl 8.3 mg/dl Total Creatine Kinase 165 U/L 127 U/L Creatine Kinase MB 2.3 ng/ml 1.6 ng/ml Creatine Kinase MB Ratio 1.4 1.3 Troponin I 0.103 ng/ml 0.089 ng/ml 0.088 ng/ml Prothrombin Time 25.8 SECONDS 22.1 SECONDS Prothromb Time International Ratio 2.3 2.0 Activated Partial Thromboplast Time 32.4 SECONDS Partial Thromboplastin Ratio 1.2 Magnesium Level 2.4 mg/dl Diagnostic Results [~ rep ct add3]] SINGLE VIEW CHEST CLINICAL HISTORY: Atypical chest pain. FINDINGS: An AP, portable, upright chest radiograph is compared to study dated 09/20/2014. The examination is degraded by portable technique and apical lordotic positioning. The patient is status post midline sternotomy. The heart is markedly enlarged and there is atherosclerotic calcification of the thoracic aorta. The pulmonary vasculature is noncongested. Chronic interstitial thickening is unchanged. There is left basilar atelectasis. No airspace consolidation, large pleural effusion, or pneumothorax is seen. The bony thorax is grossly intact. IMPRESSION: Cardiomegaly with no acute cardiopulmonary abnormality. Assessment and Plan 66-year-old male with a significant cardiac history presents emergency department with a presyncopal episode preceded by fleeting left lower quadrant abdominal pain While in the emergency department, developed chest pressure that was relieved with nitroglycerin. Now pain-free. Mild elevation in troponin at 0.103 Presyncopal episode and developing chest pain/pressure in the emergency department-The patient could've had a burst of A. fib causing his pre-syncopal episode. The patient does however have an elevated troponin at 0.103. Troponin were also mildly elevated in September. This could be chronic. -Observe in telemetry -Trend cardiac enzymes -Echocardiogram just performed last week. No need to repeat now -Cardiology consult -Continue outpatient regimen as follows: Aspirin 81 mg daily, atorvastatin 20 mg daily, losartan 25 mg daily, metoprolol extended release 50 mg twice daily, warfarin 5 mg Wednesday, Wednesday and Wednesday, warfarin 7.5 mg on Wednesday, , Wednesday Obstructive sleep apnea-currently not using a CPAP -Follow up as an outpatient -Patient is being fitted for a special mask A. fib-rate controlled as noted above -Coumadin as noted above -Daily INR DVT prophylaxis -Coumadin -Teds, SCDs CODE STATUS -LEVEL I FULL CODE
[2016-10-28] MEDS ORDERED: METOPROLOL SUCC 50MG EXT REL TAB PO ONE (09:39)
--- NOTE | 2016-10-28 10:05 | Cardiology Consultation ---
Cardiology Consultation Date of Consultation: Oct 28, 2016. Requesting Physician: Ida Rodriguez PA-C Attending Physician: Dr. Coronado Reason for Consultation: Pre-syncope Pt evaluation today including: conversation w/ patient, physical exam, chart review, lab review, review of studies, review of inpatient medication list, conversation w/ attending History of Present Illness Mr. 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 The patient reports that he was in his usual state of health until yesterday afternoon. 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 Around 12:30 pm , he was standing and bend down to grab tools off of a table. He then felt very lightheaded and blacked out for about a second. He caught himself on the table, so that he did not fall. He then noted that his vision was blurry, and his legs felt very heavy and tingly. He did not have any palpitations, nausea, diaphoresis, chest pain, or shortness of breath. His symptoms resolved soon thereafter. He then went home before driving to the ED. On the way to the ED, he noted mild, substernal chest discomfort described as a tightness or squeezing. The discomfort was mild at 1/10 in severity. He was given 1 nitro in the ED, and he reports that the discomfort resolved within 5-10 minutes after the nitro. The discomfort has waxed and waned since then. He currently notes the mild discomfort, and it has been ongoing for the last 30 minutes. He denies any recurrent lightheadedness or presyncope since the episode yesterday afternoon. He denies orthopnea, PND, or edema. He reports that he had bleeding from a hemorrhoid yesterday, but he denies any melena, hematochezia, or hematuria. He notes a mild headache this morning. Review of Systems: As noted in HPI. All other 10 point ROS otherwise negative. Family History Diabetes mellitus Heart disease Social History Smoking Status: Unknown if Ever Smoked History of Alcohol Use: No Allergies Coded Allergies: BEE STING (Verified Allergy, Severe, CHOKING WITH GENERALIZED SWELLING, 9/ 23/15) Procaine (Verified Allergy, Unknown, ANAPHYLAXIS, 04/24/15) XYLOCAINE/LIDOCAINE OKAY [place] (Verified Allergy, Unknown, HIVES, 04/24/15) Medications Current Inpatient Medications Medications (Trade) Dose Ordered Sig/Francisco Route Start Time Stop Time Status Last Admin Dose Admin Acetaminophen (Tylenol Tab) 650 mg Q4H PRN PO 10/27/16 19:15 11/26/16 19:14 Al Hydrox/Mg Hydrox/Simethicone (Maalox Max Susp) 15 ml Q4H PRN PO 10/27/16 19:15 11/26/16 19:14 Ondansetron HCl (Zofran Inj) 4 mg Q6H PRN IV 10/27/16 19:15 11/26/16 19:14 Nitroglycerin (Nitrostat Tab) 0.4 mg UD PRN SL 10/27/16 19:15 11/26/16 19:14 Aspirin (Ecotrin Tab) 81 mg DAILY PO 10/28/16 09:00 11/27/16 08:59 10/28/16 08:04 81 MG Atorvastatin Calcium (Lipitor Tab) 20 mg QPM PO 10/27/16 21:00 11/26/16 20:59 10/27/16 21:40 20 MG Losartan Potassium (coZAAR TAB) 25 mg QPM PO 10/27/16 21:00 11/26/16 20:59 10/27/16 21:41 25 MG Metoprolol Succinate (Toprol Xl Tab) 50 mg BID PO 10/27/16 21:00 11/26/16 20:59 Future Hold 10/27/16 21:39 50 MG Warfarin Sodium (Coumadin Tab) 5 mg MoWeFr@1600 PO 10/28/16 16:00 11/27/16 15:59 Miscellaneous (Iv Fluids Completed) 1 ea PRN PRN N/A 10/27/16 21:15 10/27/17 21:14 Warfarin Sodium (Coumadin Tab) 5 mg MoTuWeFrSa@1600 PO 10/28/16 16:00 11/27/16 15:59 Warfarin Sodium (Coumadin Tab) 7.5 mg SuTh@1600 PO 10/29/16 16:00 11/28/16 15:59 Physical Exam Vital Signs Past 12 Hours Date Time Temp Pulse Resp B/P Pulse Ox O2 Delivery O2 Flow Rate FiO2 10/28/16 08:30 36.5 68 20 118/78 94 Room Air 10/28/16 08:00 Room Air 10/28/16 04:00 Room Air 10/28/16 03:45 36.8 66 18 131/75 95 Room Air 10/28/16 00:03 36.6 52 22 143/93 95 Room Air 146/99 148/92 10/28/16 00:00 Room Air 10/27/16 23:45 36.5 72 18 119/72 96 10/27/16 23:08 119/72 10/27/16 21:43 72 10/27/16 21:42 64 18 128/85 96 Room Air Constitutional: Alert, oriented, in no acute distress HEENT: Head is atraumatic and normocephalic. EOMs intact. Sclera anicteric. Face is symmetric. No perioral cyanosis. Mucous membranes moist. Neck: Supple, no JVD, no carotid bruits Pulmonary: Normal respiratory effort, clear to auscultation bilaterally Cardiac: Irregularly irregular, normal S1 and S2, no gallops, no rubs, no murmurs Extremities: No clubbing, cyanosis, or edema. Pulses 2+ and symmetric Abdomen: Normal bowel sounds, soft, non-tender, no abdominal mass palpated Skin: Normal skin color, turgor, and pigmentation, no rash, no skin lesions Neurological: Oriented to person, place, and time Data Laboratory Results: Last 24 Hours Test 10/27/16 16:20 10/27/16 17:13 10/28/16 01:00 10/28/16 03:06 White Blood Count 6.09 K/uL 4.92 K/uL Red Blood Count 5.04 M/uL 4.60 M/uL Hemoglobin 15.0 g/dL 14.0 g/dL Hematocrit 43.3 % 39.4 % Mean Corpuscular Volume 85.9 fL 85.7 fL Mean Corpuscular Hemoglobin 29.8 pg 30.4 pg Mean Corpuscular Hemoglobin Concent 34.6 g/dl 35.5 g/dl Platelet Count 215 K/uL 192 K/uL Mean Platelet Volume 10.1 fL 9.8 fL Neutrophils (%) (Auto) 61.1 % 52.6 % Lymphocytes (%) (Auto) 28.7 % 35.0 % Monocytes (%) (Auto) 8.4 % 10.4 % Eosinophils (%) (Auto) 1.3 % 1.8 % Basophils (%) (Auto) 0.3 % 0.2 % Neutrophils # (Auto) 3.72 K/uL 2.59 K/uL Lymphocytes # (Auto) 1.75 K/uL 1.72 K/uL Monocytes # (Auto) 0.51 K/uL 0.51 K/uL Eosinophils # (Auto) 0.08 K/uL 0.09 K/uL Basophils # (Auto) 0.02 K/uL 0.01 K/uL RDW Standard Deviation 40.6 fL 40.3 fL RDW Coefficient of Variation 12.9 % 12.9 % Immature Granulocyte % (Auto) 0.2 % 0.0 % Immature Granulocyte # (Auto) 0.01 K/uL 0.00 K/uL Sodium Level 142 mmol/L 143 mmol/L Potassium Level 4.2 mmol/L 3.9 mmol/L Chloride Level 108 mmol/L 108 mmol/L Carbon Dioxide Level 27 mmol/L 26 mmol/L Anion Gap 7.0 mmol/L 9.0 mmol/L Blood Urea Nitrogen 18 mg/dl 18 mg/dl Creatinine 1.00 mg/dl 1.10 mg/dl Est Creatinine Clear Calc Drug Dose 91.0 ml/min 82.9 ml/min Estimated GFR () 90.5 80.6 Estimated GFR (Non- 78.1 69.6 BUN/Creatinine Ratio 17.8 16.1 Random Glucose 84 mg/dl 109 mg/dl Calcium Level 8.9 mg/dl 8.3 mg/dl Total Creatine Kinase 165 U/L 127 U/L Creatine Kinase MB 2.3 ng/ml 1.6 ng/ml Creatine Kinase MB Ratio 1.4 1.3 Troponin I 0.103 ng/ml 0.089 ng/ml 0.088 ng/ml Prothrombin Time 25.8 SECONDS 22.1 SECONDS Prothromb Time International Ratio 2.3 2.0 Activated Partial Thromboplast Time 32.4 SECONDS Partial Thromboplastin Ratio 1.2 Magnesium Level 2.4 mg/dl Test 10/28/16 09:06 Creatine Kinase MB Ratio CXR: Cardiomegaly with no acute cardiopulmonary abnormality. EKG: Atrial fibrillation. Left axis deviation. Old anterolateral infarct. Nonspecific ST and T wave abnormality. Telemetry reviewed: Atrial fibrillation with aberrantly conducted complexes. 50 -60's bpm. Occasional PVCs. No significant pauses. Assessment & Plan ASSESSMENT/PLAN: 1. Presyncope: The etiology of his symptoms yesterday remains unclear. He has been asymptomatic since admission. EKG and telemetry monitoring have been unremarkable thus far. Recommend continuing to monitor on telemetry to evaluate for any significant pauses or dysrhythmia. Consider 30 day event monitor as an outpatient if nothing is found during this admission. 2. Coronary artery disease s/p remote CABG x3: Patient's initial troponin was mildly elevated at 0.103. It has subsequently trended down. EKG shows nonspecific changes. Patient does note intermittent mild chest tightness, lasting at least 30 minutes in duration. Recommend continuing to monitor throughout the day and overnight. It is then recommended that he undergo a pharmacologic nuclear stress test, but this can be performed as an outpatient. It will be scheduled through our office. Metoprolol will be restarted. Continue aspirin and statin therapy. 3. Atrial fibrillation: He is asymptomatic. His rate has been well controlled throughout the admission with no significant pauses noted. His Metoprolol will therefore be restarted at his previous dosing. Continue anticoagulation for thromboembolic prophylaxis with goal INR 2-3. 4. Ischemic cardiomyopathy: He appears euvolemic on examination. Continue Losartan. Restart Metoprolol succinate. Thank you for allowing us to see this patient in consultation. Will continue to follow along throughout the patient's hospital admission. Patient was seen and discussed with Dr. Coronado, and the plan was made in collaboration with him.
[2016-10-28 10:18] LABS: CKMB/CK RATIO 1.2 (0-3.0)
[2016-10-28] MEDS ORDERED: WARFARIN SOD 5 MG TAB PO SCH ×2 (16:00)
[2016-10-28] MEDS: ATORVASTATIN 20 MG TAB PO SCH (21:22)
[2016-10-28] MEDS: LOSARTAN POTASSIUM 25 MG TAB PO SCH (21:22)
[2016-10-29 00:12] VITALS: O2SAT 95
[2016-10-29 03:56] VITALS: BP 102/61; PULSE 61; TEMP 36.6; O2SAT 96
[2016-10-29 04:45] VITALS: O2SAT 95
[2016-10-29 06:47] LABS: BASO % 0.2 %; BASO ABS # 0.01 K/uL (0-0.2); COMPLETE YES; EOS % 2.7 %; HEMATOCRIT 43.1 % (42-52); IG% 0.2 %; LYMPH % 37.8 %; LYMPH ABS # 1.71 K/uL (1.2-3.4); MEAN CELL VOLUME 85.3 fL (80-100); MEAN CORPUSCULAR HEMOGLOBIN 29.5 pg (25-34); MEAN CORPUSCULAR HGB CONC 34.6 g/dl (32-36); MEAN PLATELET VOLUME 9.9 fL (7.4-10.4); MONO % 8.6 %; NEUT % 50.5 %; PLATELET COUNT 196 K/uL (130-400); RED BLOOD COUNT 5.05 M/uL (4.7-6.1); WHITE BLOOD COUNT 4.52 K/uL (4.8-10.8)
[2016-10-29 06:58] VITALS: BP 103/65; PULSE 58; TEMP 36.5; O2SAT 95
[2016-10-29 06:59] LABS: INR 2.1 (0.9-1.1); PROTHROMBIN TIME (PATIENT) 22.9 SECONDS (9.0-12.0)
[2016-10-29 07:12] LABS: BUN/CREATININE RATIO 16.5 (10-20); CALCIUM 8.5 mg/dl (8.5-10.1); POTASSIUM 4.1 mmol/L (3.5-5.1)
[2016-10-29] MEDS: ASPIRIN 81 MG ECTAB PO SCH (07:37)
--- NOTE | 2016-10-29 09:34 | CARDIOLOGY PROGRESS NOTE ---
DATE: 10/29/2016 DATE: 10/29/2016. SUBJECTIVE: Mr. Lorenz is resting comfortably in bed without complaints of chest pain or dyspnea. Has been ambulatory this morning without complaints. Anxious for hospital discharge. OBJECTIVE: VITAL SIGNS: Blood pressure 103/65 with a regular pulse of 58. Respiratory rate is 20 and the patient is afebrile at 36.5 degrees Celsius. Saturations 95% on room air. NECK: Supple with full carotid upstrokes. There are no carotid bruits. Jugular venous pressure is flat at 90 degrees. There is no thyromegaly. CARDIOVASCULAR EXAMINATION: Reveals an irregularly irregular rhythm with distant heart sounds. No obvious murmurs. LUNGS: Clear without rales, rhonchi, or wheezes. ABDOMEN: Soft without bruits. EXTREMITIES: Reveal intact radial artery pulses bilaterally. There is no peripheral edema. LABORATORY DATA: CBC notes hemoglobin 14.9, hematocrit 43.1, white count 4.5, platelet count 196,000. Electrolytes note a sodium of 142, potassium 4.1, chloride 107, bicarb 26, BUN 17, creatinine 1.0, glucose 99. Troponin I level is 0.088, down from a peak of 0.103. monitoring and evaluation advisor notes atrial fibrillation with a controlled ventricular response. EKG notes atrial fibrillation with a slow ventricular response. There is a left axis deviation and an old anterolateral myocardial infarction. No acute ST segment changes seen. IMPRESSION AND PLAN: 1. Presyncope -- patient has been stable on the monitor without evidence of significant pauses greater than 3 seconds. Suspect this was simply orthostatic. 2. Increased troponin -- patient does have a history of coronary disease, status post remote CABG x3. His troponin is mildly elevated. We could not perform a nuclear stress test during this hospitalization. As the patient is completely stable, ambulatory and without complaints we will perform his nuclear stress test next Wednesday. 3. Permanent atrial fibrillation -- continue rate control and long-term anticoagulation strategies. 4. Ischemic cardiomyopathy -- mild in degree with a left ventricular ejection fraction of 45-50%. 5. Hypertension -- controlled. 6. Hypercholesterolemia.
[2016-10-29 11:28] VITALS: BP_SYST 113; BP_SYST 130; BP_DIAS 71; BP_DIAS 77; BP_DIAS 83; PULSE 73; TEMP 36.7; O2SAT 95
--- NOTE | 2016-10-29 12:21 | Discharge Instructions ---
Discharge Instructions Date of Service Oct 29, 2016. Admission Reason for Admission: Near Syncope Discharge Discharge Diagnosis / Problem: Coronary artery disease. Discharge Goals Goal(s): Learn about illness Activity Recommendations Activity Limitations: resume your previous activity Lifting Limitations: none, gradually increase as tolerated Exercise/Sports Limitations: until after follow-up appointment May Resume Sexual Activity: after follow-up appointment Shower/Bathe: no limitations Driving or Machine Use: no limitations . Instructions / Follow-Up Instructions / Follow-Up With Cardiology after stress test Current Hospital Diet Patient's current hospital diet: Regular Diet Discharge Diet Recommended Diet: AHA Diet (Heart Healthy) Pending Studies Studies pending at discharge: yes List of pending studies: Exercise nuclear stress test Laboratory Results 10/29/16 06:07 Red Blood Count 5.05, Mean Corpuscular Volume 85.3, Mean Corpuscular Hemoglobin 29.5, Mean Corpuscular Hemoglobin Concent 34.6, Mean Platelet Volume 9.9, Neutrophils (%) (Auto) 50.5, Lymphocytes (%) (Auto) 37.8, Monocytes (%) (Auto) 8.6, Eosinophils (%) (Auto) 2.7, Basophils (%) (Auto) 0.2, Neutrophils # (Auto) 2.28, Lymphocytes # (Auto) 1.71, Monocytes # (Auto) 0.39, Eosinophils # (Auto) 0.12, Basophils # (Auto) 0.01 10/29/16 06:07 Test 10/27/16 17:13 10/28/16 03:06 10/28/16 09:25 10/29/16 06:07 Activated Partial Thromboplast Time 32.4 SECONDS (21.0-31.0) Partial Thromboplastin Ratio 1.2 Magnesium Level 2.4 mg/dl (1.8-2.4) Total Creatine Kinase 102 U/L (39-308) Creatine Kinase MB 1.2 ng/ml (0.5-3.6) Creatine Kinase MB Ratio 1.2 (0-3.0) Troponin I 0.088 ng/ml (0-0.045) White Blood Count 4.52 K/uL (4.8-10.8) Red Blood Count 5.05 M/uL (4.7-6.1) Hemoglobin 14.9 g/dL (14.0-18.0) Hematocrit 43.1 % (42-52) Mean Corpuscular Volume 85.3 fL (80-100) Mean Corpuscular Hemoglobin 29.5 pg (25-34) Mean Corpuscular Hemoglobin Concent 34.6 g/dl (32-36) Platelet Count 196 K/uL (130-400) Mean Platelet Volume 9.9 fL (7.4-10.4) Neutrophils (%) (Auto) 50.5 % Lymphocytes (%) (Auto) 37.8 % Monocytes (%) (Auto) 8.6 % Eosinophils (%) (Auto) 2.7 % Basophils (%) (Auto) 0.2 % Neutrophils # (Auto) 2.28 K/uL (1.4-6.5) Lymphocytes # (Auto) 1.71 K/uL (1.2-3.4) Monocytes # (Auto) 0.39 K/uL (0.11-0.59) Eosinophils # (Auto) 0.12 K/uL (0-0.5) Basophils # (Auto) 0.01 K/uL (0-0.2) RDW Standard Deviation 40.3 fL (36.4-46.3) RDW Coefficient of Variation 13.0 % (11.5-14.5) Immature Granulocyte % (Auto) 0.2 % Immature Granulocyte # (Auto) 0.01 K/uL (0.00-0.02) Prothrombin Time 22.9 SECONDS (9.0-12.0) Prothromb Time International Ratio 2.1 (0.9-1.1) Anion Gap 9.0 mmol/L (3-11) Est Creatinine Clear Calc Drug Dose 90.2 ml/min Estimated GFR () 90.5 Estimated GFR (Non- 78.1 BUN/Creatinine Ratio 16.5 (10-20) Calcium Level 8.5 mg/dl (8.5-10.1) Medical Emergencies . Who to Call and When: Medical Emergencies: If at any time you feel your situation is an emergency, please call 911 immediately. . Non-Emergent Contact Non-Emergency issues call your: Primary Care Provider . Past History Medical & Surgical History: (1) NSTEMI (non-ST elevated myocardial infarction) (2) Near syncope (3) Atrial fibrillation . "Provider Documentation" section prepared by [employer]Pul Lutz. VTE Core Measure Inpt VTE Proph given/why not?: Warfarin (Coumadin), T.E.D. Stockings, SCD's
--- NOTE | 2016-10-29 12:32 | Discharge Summary ---
Discharge Summary Date of Service Oct 29, 2016. Discharge Summary Admission Date: Oct 27, 2016 at 19:10 Discharge Date: Oct 29, 2016 Discharge Disposition: Home Principal Diagnosis: Coronary artery disease Problems/Secondary Diagnoses: Hyperlipidemia Permanent atrial fibrillation Immunizations: Have You Had Influenza Vaccine: No Influenza Vaccine Date: May 12, 2007 History of Tetanus Vaccine?: Yes Tetanus Immunization Date: Feb 18, 2007 History of Pneumococcal: Yes Pneumococcal Date: Sep 03, 2006 History of Hepatitis B Vaccine: No Consultations: Cardiology Medication Reconciliation Continued Medications: Aspirin (Aspirin Ec) 81 Mg Tab 81 MG PO DAILY Atorvastatin (Atorvastatin Calcium) 40 Mg Tab 20 MG PO QPM, #30 Losartan Potassium (Losartan Potassium) 25 Mg Tab 25 MG PO QPM, #90 Metoprolol Succinate (Metoprolol Succinate ER) 50 Mg Tabcr 50 MG PO BID Nitroglycerin (Nitrostat) 0.4 Mg Tab 0.4 MG UT UD PRN for Chest Pain, [address] TABLET UNDER THE TONGUE NEEDED EVERY 5 MINUTES FOR UP TO 3 DOSES IF NEEDED FOR CHEST PAIN. Warfarin Sodium (Warfarin Sodium) 5 Mg Tab 7.5 MG PO 2XWK TAKE ON WED & THUR OR OTHERWISE DIRECTED TO TAKE BY ANTICOAGULATION CLINIC/MD. Warfarin Sodium (Warfarin Sodium) 5 Mg Tab 5 MG PO 5XWK TAKE 5 MG EVERY MON, , WED, WED & SAT Discharge Exam Physical Exam: General Appearance: WD/WN, no apparent distress Eyes: normal inspection, PERRL ENT: normal ENT inspection, hearing grossly normal, pharynx normal Neck: supple, no adenopathy, thyroid normal Respiratory/Chest: chest non-tender, lungs clear, normal breath sounds Cardiovascular: no edema, no gallop, + irregularly irregular Abdomen / GI: normal bowel sounds, non tender, soft, no organomegaly Extremities: normal inspection, no calf tenderness Neurologic/Psychiatric: emergency nurse II-XII nml as tested, no motor/sensory deficits Skin: normal color Lymphatic: no adenopathy Hospital Course 66-year-old male with a significant cardiac history presents emergency department with a presyncopal episode preceded by fleeting left lower quadrant abdominal pain While in the emergency department, developed chest pressure that was relieved with nitroglycerin. Now pain-free. Mild elevation in troponin at 0.103 IMPRESSION AND PLAN: 1. Presyncope -- patient has been stable on the monitor without evidence of significant pauses greater than 3 seconds. Suspect this was simply orthostatic. 2. Increased troponin -- patient does have a history of coronary disease, status post remote CABG x3. His troponin is mildly elevated. We could not perform a nuclear stress test during this hospitalization. As the patient is completely stable, ambulatory and without complaints we will perform his nuclear stress test next Wednesday. 3. Permanent atrial fibrillation -- continue rate control and long-term anticoagulation strategies. 4. Ischemic cardiomyopathy -- mild in degree with a left ventricular ejection fraction of 45-50%. 5. Hypertension -- controlled. 6. Hypercholesterolemia. Total Time Spent: Greater than 30 minutes This includes examination of the patient, discharge planning, medication reconciliation, and communication with other providers. Discharge Instructions Please refer to the electronic Patient Visit Report (Discharge Instructions) for additional information. Follow-Up Cardiology after stress test
[2016-10-29 13:20] VITALS: BP 130/71; PULSE 73; TEMP 36.7; O2SAT 95
[2016-10-29] MEDS ORDERED: WARFARIN SOD 7.5 MG TAB PO SCH (16:00)
== END 2016-10-29 14:10 | disposition home or self-care (01) ==
LOC: ENRESERVTM → ENRESERVDT → C.EDB 14:41 → C.EDINP 19:10 → C.2T 23:45
PROVIDERS: ADMIT Family Medicine; ATTEND Family Medicine
DX: R07.89 Other chest pain (principal); R55 Syncope and collapse; G47.33 Obstructive sleep apnea (adult) (pediatric); R79.89 Other specified abnormal findings of blood chemistry; I25.10 Atherosclerotic heart disease of native coronary artery without angina pectoris; I48.2 Chronic atrial fibrillation; I48.0 Paroxysmal atrial fibrillation; I10 Essential (primary) hypertension; E78.00 Pure hypercholesterolemia, unspecified; E11.9 Type 2 diabetes mellitus without complications; I25.5 Ischemic cardiomyopathy; I25.2 Old myocardial infarction; Z95.1 Presence of aortocoronary bypass graft; Z79.82 Long term (current) use of aspirin; Z79.01 Long term (current) use of anticoagulants; Z87.891 Personal history of nicotine dependence; Z83.3 Family history of diabetes mellitus; Z82.49 Family history of ischemic heart disease and other diseases of the circulatory system

== ENCOUNTER → 2016-11-04 | Outpatient (CLI) | payer OTHER ==
[~2016-11-04] MED LIST changes: +ASPI81TA28 PO; -CRS10 PO; +CZR25 PO; +LPT40 PO; +REGADENOSON 0.4 MG/5 ML SYR ONE; +TPRSR/50 PO; -TRIA0.1C20
--- NOTE | 2016-11-05 10:02 | MYOCARDIAL PERFUSION SCAN ---
ONE-DAY NUCLEAR MEDICINE TECHNETIUM-99M CARDIOLITE MYOCARDIAL PERFUSION SCAN: CLINICAL HISTORY: The patient has known coronary artery disease and has had a resection of a left ventricular aneurysm previously. During a recent hospitalization, he had an elevated troponin level, but no symptoms of chest discomfort. This stress test is being performed to rule out significant myocardial ischemia. COMPARISON: None. TECHNIQUE: For the stress portion of the study, 33 mCi of Technetium 99 m Cardiolite IV was injected at 1:15 pm on 11/04/2016. 30 minutes following the injection, imaging of the heart was performed in multiple projection. For the rest portion of the study, 11.4 mCi of Technetium 99 m Cardiolite was injected IV at 11:30 am. One hour following the injection, imaging of the heart was performed in the same projections. For the above stress portion of the study, 0.4 mg of Lexiscan was injected intravenously as per protocol. The patient tolerated the procedure well. There were no EKG changes nor complaints of chest discomfort. FINDINGS: The short axis, vertical long axis, horizontal long axis images were reviewed in detail. There is a large fixed defect involving the mid and distal anterior wall, the distal inferior wall, and the entire apex. This defect is present at both stress and rest suggesting an old myocardial infarction. There is no evidence of myocardial ischemia. Left ventricular systolic function is reduced at 33%. There is a large akinetic segment involving the area as described above. IMPRESSION: 1. Scintigraphic evidence of an old anterior, apical, and distal inferior myocardial infarction. 2. No evidence of stress induced myocardial ischemia. 3. Reduced left ventricular ejection fraction of 33% with an anterior, apical, and inferior wall defect as described.
== END | disposition home or self-care (01) ==
LOC: C.NUCL 10:49
PROVIDERS: ATTEND Physician Assistant
DX: I25.10 Atherosclerotic heart disease of native coronary artery without angina pectoris (principal); R07.89 Other chest pain; R74.8 Abnormal levels of other serum enzymes

== ENCOUNTER → 2016-11-11 | Outpatient (CLI) | payer OTHER ==
[~2016-11-11] MED LIST changes: -REGADENOSON 0.4 MG/5 ML SYR ONE
[2016-11-11 12:45] LABS: URINE APPEARANCE CLEAR (CLEAR); URINE BILIRUBIN NEG (NEG); URINE COLOR YELLOW; URINE EPITHELIAL CELL AUTO 0-5 /lpf (0-5); URINE NITRITE NEG (NEG); URINE SPECIFIC GRAVITY 1.013 (1.000-1.030); UROBILINOGEN NEG (NEG); ZZUR CULT IF INDIC CLEAN CATCH NO
[2016-11-11 12:55] LABS: MANUAL MICROSCOPIC REQUIRED? NO; REVIEW REQ? NO
== END | disposition home or self-care (01) ==
LOC: C.LABBFT 11:06
PROVIDERS: ATTEND Internal Medicine
DX: E55.9 Vitamin D deficiency, unspecified (principal); I25.10 Atherosclerotic heart disease of native coronary artery without angina pectoris

== ENCOUNTER → 2016-12-30 | Outpatient (CLI) | payer OTHER ==
--- NOTE | 2017-01-05 09:33 | POLYSOMNOGRAPH REPORT ---
CLINICAL DATA: A 66-year-old male with BMI of 32 referred by Cici So, Dr. Turpin, myself and Dr. Ragsdale for evaluation of effectiveness of an oral appliance. He had moderate sleep apnea diagnosed in a sleep study performed in June 2016 which showed an AHI of 21.6. He was treated with CPAP but was intolerant of CPAP. He has been fitted with an oral appliance by Dr. Ragsdale and is using it. His sleep quality has improved. On the evening of 12/30/2016, a home sleep apnea test with his oral appliance in place was performed using a [employer] type 3 monitor. RECORDING RESULTS: Total recording time was 10 hours. The patient's monitoring time and estimated sleep time was 7 hours. RESPIRATORY DATA: Mild sleep apnea was still present. The JEANNINE was 12.8. There were 3 obstructive apneic episodes and 87 hypopneic episodes. The longest respiratory event was 60 seconds. OXIMETRY DATA: Very transient hypoxemia was seen. Oxygen sis was 87%. Mean saturation was 93%. Time below 89% was 3 minutes. HEART RATE DATA: Heart rates ranged from 43 to 64 beats per minute. SNORING DATA: Snoring was recorded throughout the night. IMPRESSION: Residual mild sleep apnea/hypopnea with an JEANNINE of 12.8 in a patient with an oral appliance being used for moderate sleep apnea. There has been improvement since his baseline sleep study but still some residual sleep apnea. RECOMMENDATIONS: The patient should continue to use his oral appliance. Weight loss may be of help as well. If any adjustments can be made in the oral appliance, that might also be considered. Clinical correlation is needed. DARWIN
== END | disposition home or self-care (01) ==
LOC: C.NEUR 09:35
PROVIDERS: ATTEND Physician Assistant Medical
DX: G47.33 Obstructive sleep apnea (adult) (pediatric) (principal)

== ENCOUNTER → 2017-04-16 | Outpatient (CLI) | payer OTHER ==
[~2017-04-16] VITALS: Ht 182.9 cm; Wt 108.0 kg
[2017-04-16 13:39] VITALS: BP 160/89; PULSE 84; Ht 182.9 cm; Wt 108.0 kg
[2017-04-16 13:40] VITALS: BP 140/90; PULSE 43
== END | disposition home or self-care (01) ==
LOC: C.NEUR 11:57
PROVIDERS: ATTEND Internal Medicine Pulmonary Disease
DX: G47.33 Obstructive sleep apnea (adult) (pediatric) (principal); I48.91 Unspecified atrial fibrillation

== ENCOUNTER → 2017-05-20 | Outpatient (CLI) | payer OTHER ==
[2017-05-20 17:47] LABS: BASO % 0.5 %; BASO ABS # 0.02 K/uL (0-0.2); COMPLETE YES; EOS % 2.5 %; HEMATOCRIT 46.2 % (42-52); IG% 0.2 %; MEAN CELL VOLUME 89.5 fL (80-100); MEAN CORPUSCULAR HEMOGLOBIN 30.4 pg (25-34); MEAN PLATELET VOLUME 10.4 fL (7.4-10.4); MONO % 9.9 %; NEUT % 56.9 %; PLATELET COUNT 228 K/uL (130-400); RED BLOOD COUNT 5.16 M/uL (4.7-6.1); WHITE BLOOD COUNT 4.33 K/uL (4.8-10.8)
[2017-05-20 18:05] LABS: ALT/SGPT 54 U/L (12-78); AST/SGOT 35 U/L (15-37); BLOOD UREA NITROGEN 17 mg/dl (7-18); BUN/CREATININE RATIO 18.1 (10-20); CALCIUM 9.1 mg/dl (8.5-10.1); CARBON DIOXIDE 25 mmol/L (21-32); CHLORIDE 106 mmol/L (98-107); CREATININE 0.96 mg/dl (0.60-1.40); GLUCOSE 97 mg/dl (70-99); POTASSIUM 4.3 mmol/L (3.5-5.1); SODIUM 139 mmol/L (136-145)
[2017-05-20 18:15] LABS: ALB/GLOB RATIO 1.3 (0.9-2); ALKALINE PHOSPHATASE 77 U/L (45-117); THYROID STIMULATING HORMONE 0.684 uIu/ml (0.300-4.500)
[2017-05-21 06:54] LABS: ESTIMATED AVERAGE GLUCOSE 134 mg/dl; HA1C FLAG Normal (Normal)
== END | disposition home or self-care (01) ==
LOC: C.LABBFT 12:27
PROVIDERS: ATTEND Internal Medicine
DX: E78.5 Hyperlipidemia, unspecified (principal); R73.03 Prediabetes; E55.9 Vitamin D deficiency, unspecified; D72.819 Decreased white blood cell count, unspecified; E05.90 Thyrotoxicosis, unspecified without thyrotoxic crisis or storm

== ENCOUNTER → 2017-05-24 | Outpatient (CLI) | payer OTHER ==
--- NOTE | 2017-05-24 15:29 | DIAGNOSTIC IMAGING REPORT ---
CHEST 2 VIEWS ROUTINE HISTORY: 67 years-old Male ATYPICAL CHEST PAIN symptoms are acute. COMPARISON: Portable chest radiograph 10/27/2016 TECHNIQUE: PA and lateral views of the chest FINDINGS: Cardiac silhouette is moderately enlarged. Prior median sternotomy. No pneumothorax, pleural effusion, focal airspace consolidation or overt pulmonary edema. Small hiatal hernia again seen. The bones appear grossly intact. Degenerative changes are seen about the shoulders and spine. IMPRESSION: Cardiomegaly without acute cardiopulmonary process. The above report was generated using voice recognition software. It may contain grammatical, syntax or spelling errors. Electronically signed by: Israel Yates M.D. 05/24/2017 3:27 PM Dictated Date/Time: 05/24/2017 3:26 PM
== END | disposition home or self-care (01) ==
LOC: C.RAD1850 14:25
PROVIDERS: ATTEND Internal Medicine
DX: R07.89 Other chest pain (principal); I51.7 Cardiomegaly

== ENCOUNTER → 2017-08-24 | Outpatient (CLI) | payer OTHER ==
--- NOTE | 2017-08-27 18:01 | POLYSOMNOGRAPH REPORT ---
CLINICAL DATA: 67-year-old male with BMI of [address] Turpin and myself. He has a history of moderate sleep apnea treated with an oral appliance. He does have coronary artery disease and atrial fibrillation. He had a history of moderate DARRYN with an AHI of 21.6. He feels much better using his oral appliance. He recently had it readjusted and is here to have a reevaluation. On the evening of 08/25/2017, a home sleep apnea test was performed using a [employer] type 3 monitor. RECORDING RESULTS: Total recording time was 9.6 hours. The patient monitoring time and estimated sleep time was 7 hours. RESPIRATORY DATA: Moderate sleep apnea was documented again. The JEANNINE was 17.9. There were 4 obstructive, 1 mixed, and 2 central apneic episodes. There were 118 hypopneic episodes. The longest respiratory event was 54 seconds. OXIMETRY DATA: Nocturnal hypoxemia was seen. Oxygen sis was 84%. Mean saturation was 93%. Time below 89% was 9 minutes. HEART RATE DATA: Heart rates ranged from 48-66 beats per minute. SNORING DATA: Snoring was recorded throughout the night. IMPRESSION: Moderate sleep apnea/hypopnea with an JEANNINE of 17.9. RECOMMENDATIONS: The patient should return to see Dr. Ragsdale for possible readjustment of his oral appliance. He has had some slight improvement but continues to have residual sleep apnea based on his home sleep apnea test. [facility] SYSTEMMarcie
== END | disposition home or self-care (01) ==
LOC: C.NEUR 09:23
PROVIDERS: ATTEND Internal Medicine Pulmonary Disease
DX: G47.30 Sleep apnea, unspecified (principal)

== ENCOUNTER → 2017-11-17 | Outpatient (CLI) | payer OTHER ==
--- NOTE | 2017-11-18 16:28 | POLYSOMNOGRAPH REPORT ---
CLINICAL DATA: A 67-year-old male with BMI of 32.4 referred for evaluation of effectiveness of an oral appliance. He does have sleep apnea, moderate in severity. He tried CPAP, but was intolerant. He had an oral appliance made by Dr. Ragsdale. He recently had an adjustment and he is here to check the effectiveness of his oral appliance. On the evening of 11/17/2017, a home sleep apnea test was performed using a Lincoln type 3 monitor. RECORDING RESULTS: Total recording time was 9.7 hours. The patient's estimated sleep time and patient monitoring time was 6.5 hours. RESPIRATORY DATA: Mild sleep apnea was present. The JEANNINE was 14.4. There were 9 obstructive and 2 mixed apneic episodes. There were 82 hypopneic episodes. The longest respiratory event was 38 seconds. OXIMETRY DATA: Mild hypoxemia was seen. Oxygen sis was 81%. Mean saturation was 92%. Time below 89% was 8 minutes. HEART RATE DATA: Heart rates ranged from 48-67 beats per minute. SNORING DATA: Snoring was recorded throughout the night. IMPRESSION: Residual mild sleep apnea/hypopnea with an JEANNINE of 14.4. RECOMMENDATIONS: The patient should continue to use his oral appliance. Follow up with Dr. Ragsdale is recommended. [facility]ENTER[facility]ie
== END | disposition home or self-care (01) ==
LOC: C.NEUR 09:29
PROVIDERS: ATTEND Physician Assistant Medical
DX: G47.33 Obstructive sleep apnea (adult) (pediatric) (principal)

== ENCOUNTER → 2017-11-26 | Outpatient (CLI) | payer OTHER ==
[~2017-11-26] VITALS: Ht 182.9 cm; Wt 107.1 kg
[2017-11-26 13:34] VITALS: BP 141/79; PULSE 73; Ht 182.9 cm; Wt 107.1 kg
== END | disposition home or self-care (01) ==
LOC: C.NEUR 13:00
PROVIDERS: ATTEND Internal Medicine Pulmonary Disease
DX: G47.33 Obstructive sleep apnea (adult) (pediatric) (principal); I48.91 Unspecified atrial fibrillation; Z79.01 Long term (current) use of anticoagulants; Z79.899 Other long term (current) drug therapy

== ENCOUNTER → 2017-12-06 | Outpatient (CLI) | payer OTHER | END | disposition home or self-care (01) | LOC: C.LABBFT 15:36 | PROVIDERS: ATTEND Internal Medicine | DX: E55.9 Vitamin D deficiency, unspecified (principal) ==

== ENCOUNTER 2019-05-20 15:08 | Observation (INO) ==
[2019-05-20] MEDS ORDERED: ASPIRIN CHEW 324 MG PO STA (15:50)
--- NOTE | 2019-05-20 16:03 | XRay Report ---
XR chest 1V portable CLINICAL HISTORY: Chest Pain pain COMPARISON STUDY: 08/23/2018 FINDINGS: Mild stable cardiomegaly. Prior median sternotomy. Lungs are clear. IMPRESSION: No acute process. The above report was generated using voice recognition software. It may contain grammatical, syntax or spelling errors. Electronically signed by: Juan Bliss M.D. 05/20/2019 4:02 PM
[2019-05-20 16:07] LABS: Basophils # (auto) 0.02 K/uL (0-0.2); Basophils % (auto) 0.3 %; Eosinophils # (auto) 0.11 K/uL (0-0.5); Eosinophils % (auto) 1.8 %; Hematocrit (blood only) 47.1 % (42-52); Hemoglobin 16.7 g/dL (14.0-18.0); Immature Granulocytes # (auto) 0.01 K/uL (0.00-0.02); Immature Granulocytes % (auto) 0.2 %; Lymphocytes # (auto) 1.52 K/uL (1.2-3.4); Lymphocytes % (auto) 24.4 %; Mean Corpuscular Hemoglobin 31.5 pg (25-34); Mean Corpuscular Hgb Conc 35.5 g/dL (32-36); Mean Corpuscular Volume 88.9 fL (80-100); Monocytes # (auto) 0.55 K/uL (0.11-0.59); Monocytes % (auto) 8.8 %; Neutrophils # (auto) 4.03 K/uL (1.4-6.5); Neutrophils % (auto) 64.5 %; Platelet Count 231 K/uL (130-400); RDW Coefficient of Variation 13.6 % (11.5-14.5); RDW Standard Deviation 44.2 fL (36.4-46.3); White Blood Count 6.24 K/uL (4.8-10.8)
[2019-05-20 16:21] LABS: INR 1.3 (0.9-1.1); Partial Thromboplastin Time 26.4 Seconds (21.0-31.0); Prothrombin Time 13.1 Seconds (9.0-12.0)
[2019-05-20 16:27] LABS: Albumin Level 4.4 gm/dl (3.4-5.0); BUN Creatinine Ratio 16.9 (10-20); Calcium 9.2 mg/dl (8.5-10.1); Creatinine Clr Calc Pharmacy 80.8 ml/min; Est GFR (African American) 81.7; Est GFR (Non-African American) 70.5; Potassium 4.6 mmol/L (3.5-5.1)
[2019-05-20 16:31] LABS: Albumin Globulin Ratio 1.2 (0.9-2); Bilirubin,Total 2.2 mg/dl (0.2-1); Globulin 3.6 gm/dl (2.5-4.0); Troponin I 0.024 ng/ml (0-0.045)
[2019-05-20] MEDS ORDERED: HEPARIN SOD (PORCINE) 1000 UNIT/ML 10 ML VIAL ONE (17:30)
[2019-05-20] MEDS: HEPARIN SODIUM/DEXTROSE 25,000 UNITS/500 ML BAG IV SCH (17:39)
--- NOTE | 2019-05-20 18:00 | Emergency Department Note ---
Entered by Suze Barahona acting as a scribe for History of Present Illness General Chief complaint: Cardiac Assessment Stated complaint: DIZZINESS,BLURRED VISIONI,SOB Time Seen by Provider: 05/20/19 15:37 Source: patient History of Present Illness Onset (ago): minute(s) (prior to arrival) Location: chest Pain Consistency: + other (episode) Quality: + other (tightness, "hot flash") Associated symptoms: + denies other symptoms (leg swelling), + headaches, + shortness of breath and + other (blurry vision, neck tension, left side pain); no diaphoresis and no nausea/vomiting (nausea) The patient is a 69 year old male who presents to the Emergency Room with complaints of an episode of chest pain starting prior to arrival. The patient states that 2 days ago he was at work and stood up after being bent over. He states that he suddenly had a hot flash in his chest that took his breath away. He states that it lasted for 30-40 seconds and went away. He notes that it felt like it made his chest tight and his vision blurry. He states that the pain radiated out to his shoulders, but he had no issues after the fact. The patient states that then today he was walking the [place] when he felt short of breath. He reports that he went and sat down, he started having blurry vision and the same chest pain he had 2 days ago. The patient states that this time it did not pass and when he told his , she thought it be best he come to the ED due to his h istory of a CABG and pericardial patch. The patient notes that has been off his blood thinner for 5 days and stopped his aspirin yesterday because he is scheduled for a colonoscopy in 2 days. The patient complains of some sharp left side pain, neck tension, and a headache. The patient denies leg swelling, diaphoresis, and nausea. Home Medications Home Medications Medication Instructions Recorded Confirmed Type aspirin [Aspirin Low Dose] 81 mg PO QAM #0 09/20/14 05/23/19 History losartan 25 mg PO QPM 04/02/18 05/23/19 History nitroglycerin [Nitrostat] 0.4 mg SUBLINGUAL DIRECTED PRN 04/02/18 05/23/19 History cholecalciferol (vitamin D3) 2,000 units PO QPM 08/23/18 05/23/19 History [Vitamin D3] metoprolol succinate 50 mg PO BID 08/23/18 05/23/19 History ranitidine 150 mg capsule 150 mg PO DAILY cap 02/20/19 05/23/19 History atorvastatin 40 mg tablet 20 mg PO HS #45 tab 04/04/19 05/23/19 Rx triamcinolone acetonide 0.1 % 1 appln TOPICAL .COMPLEX gm 04/19/19 05/23/19 History topical cream apixaban [Eliquis] 5 mg PO BID #60 tab 05/22/19 05/23/19 Rx Allergies Allergy/AdvReac Type Severity Reaction Status Date / Time bee venom protein (honey bee) Allergy Severe CHOKING Verified 05/02/19 16:18 WITH GENERALIZED SWELLING procaine Allergy Unknown ANAPHYLAXIS Verified 05/02/19 16:18 strawberry Allergy Unknown HIVES WITH Verified 05/02/19 16:18 ALOT metformin AdvReac Unknown Nausea Verified 05/02/19 16:18 omeprazole AdvReac Unknown DIARRHEA Verified 05/02/19 16:18 GI UPSET hepatitis A virus vaccine AdvReac Verified 05/02/19 16:18 [From Twinrix] hepatitis B virus vaccine, AdvReac Verified 05/02/19 16:18 recombin [From Twinrix] Past Med/Surg History Medical History Migraine Temporomandibular joint disorder CLICKS BILAT SIDES HAS NEVER LOCKED Diabetes mellitus, type 2 BORDERLINE-NO MEDS GERD (gastroesophageal reflux disease) Diverticular disease HX Osteoarthritis Gout Actinic keratosis (Acute) Adenomatous polyp of colon (Acute) Claustrophobia (Acute) Colon polyp (Acute) Coronary artery arteriosclerosis (Acute) Diverticulitis of colon (Acute) Dyslipidemia (Acute) Dysphagia (Acute) Erectile dysfunction (Acute) Hiatal hernia (Acute) Hyperthyroidism (Acute) Ischemic cardiomyopathy (Acute) Left ventricular aneurysm (Acute) Leukopenia (Acute) Lymphadenopathy (Acute) Osteopenia (Acute) Past myocardial infarction (Acute) Pre-diabetes (Acute) Rising PSA remaining within normal limits (Acute) Snoring (Acute) Syncope (Acute) Ventricular tachycardia (Acute) Vitamin D deficiency (Acute) Witnessed apneic spells (Acute) Atrial fibrillation (Chronic) Myocardial infarction (Resolved) 1987-CARDIAC CATH NO STENTS CAD (coronary artery disease) (Chronic) CABG 3 VESSELS - [facility]-distant history mi HTN (hypertension) (Chronic) HLD (hyperlipidemia) (Chronic) Chronic atrial fibrillation Diverticulitis (Chronic) DARRYN (obstructive sleep apnea) (Chronic) MOUTHPIECE HS Surgical History Esophageal achalasia SURGERY TO REPAIR-METAL CLIP PRESENT IN AREA H/O sinus surgery (Resolved) Hx of CABG (Chronic) 3 VESSELS [facility] REPAIR Family History Father , Mother of ovarian cancer at the age of 68. She also had diabetes. Father of an MA at the age of 71. Hypertension Myocardial infarction Cardiovascular disease Mother Family history of diabetes mellitus Uterine cancer Son Hypertension Diabetes Social History Preferred Language: Gambian Communication Ability: Effective Shipping Order Clerk Required: No Beliefs That Will Affect Care: None Current Living Situation: Significant Other Feels Safe at Home: Yes Smoking Status: Former smoker Tobacco Type: cigarettes and pipe ; Age Quit Using Tobacco: 43 ; Second Hand Exposure: No ; Hx Alcohol Use: Yes Alcohol type: beer Alcohol Intake Frequency: Holidays/Special Occasions Hx Substance Use: No Dental Care, Regularly: Yes Physical Activity Frequency: Daily Seatbelt Use: always Sunscreen Use: No Review of Systems See HPI for pertinent positives & negatives. and A total of 10 systems reviewed and were otherwise negative Physical Exam Vital Signs Vital Signs - 24 hr 05/20/19 15:15 05/20/19 15:41 05/20/19 15:44 Temperature 36.3 C L Temperature Source Oral Sepsis Recent Fever Within 48 Hours No Sepsis Action Taken by Nursing No Action Required Pulse Rate 73 75 70 Pulse Rate from SpO2 Sensor 69 68 Respiratory Rate 18 15 21 Blood Pressure 152/107 H 143/86 H Blood Pressure Mean 122 105 Blood Pressure Position Sitting Pulse Oximetry 97 97 97 05/20/19 16:00 05/20/19 16:30 05/20/19 17:00 Temperature Temperature Source Sepsis Recent Fever Within 48 Hours Sepsis Action Taken by Nursing Pulse Rate 77 66 58 L Pulse Rate from SpO2 Sensor 70 65 61 Respiratory Rate 20 21 19 Blood Pressure 126/98 126/99 130/100 Blood Pressure Mean 107 108 110 Blood Pressure Position Pulse Oximetry 97 97 96 05/20/19 17:30 Temperature Temperature Source Sepsis Recent Fever Within 48 Hours Sepsis Action Taken by Nursing Pulse Rate 69 Pulse Rate from SpO2 Sensor 71 Respiratory Rate 17 Blood Pressure 142/108 H Blood Pressure Mean 119 Blood Pressure Position Pulse Oximetry 98 Vital signs reviewed. General: Well-appearing, in no significant distress. HEENT: No scleral icterus, PERRLA, neck supple. Atraumatic. Cardiovascular: Regular rate and irregular rhythm, no extra sounds. Pulmonary: Clear to auscultation bilaterally, normal work of breathing. Abdomen: Soft, nontender, nondistended, positive bowel sounds. Musculoskeletal: Atraumatic, no peripheral edema. Neurologic: Patient awake alert and oriented x 3. Skin: Warm, dry, no rash Course 1545: Past medical records reviewed. The patient was evaluated in room C3. A complete history and physical exam was performed. 1715: I discussed the patient's case with Dr. Jha- [facility]. He will evaluate the patient for further management. 1718: I reevaluated the patient and updated him on his test results. I discussed the treatment plan with him. He verbally agrees and understands. Administered Medications Discontinued Medications Aspirin (Aspirin) 324 mg PO NOW [facility] Stop: 05/20/19 15:51 Last Admin: 05/20/19 16:00 Dose: 324 mg Documented by: [id number] Aspirin (Ecotrin Ectab) 81 mg PO [facility] Stop: 06/20/19 08:59 Last Admin: 05/22/19 09:02 Dose: 81 mg Documented by: [id number] Admin: 05/21/19 09:02 Dose: 81 mg Documented by: [id number] Atorvastatin Calcium (Lipitor) 20 mg PO [facility] Stop: 06/19/19 20:59 Last Admin: 05/21/19 20:48 Dose: 20 mg Documented by: [id number] Admin: 05/20/19 20:41 Dose: 20 mg Documented by: [id number] Fentanyl Citrate (Fentanyl Citrate) Confirm Administered Dose 100 mcg .ROUTE .STK-MED ONE Stop: 05/22/19 09:08 Last Admin: 05/22/19 10:54 Dose: 100 mcg Documented by: [id number] Heparin Sodium (Porcine) (Heparin Iv Bolus) Confirm Administered Dose 10,000 units .ROUTE .STK-MED ONE Stop: 05/20/19 17:31 Last Admin: 05/20/19 17:45 Dose: 5,000 units Documented by: [id number] Cosigned by: [id number] Heparin Sodium (Porcine) (Heparin Iv Bolus (Heel Coverer Use Only)) Confirm Administered Dose 10,000 units .ROUTE .STK-MED ONE Stop: 05/22/19 09:08 Last Admin: 05/22/19 10:54 Dose: Not Given Documented by: [id number] Heparin Sodium/Dextrose () 1 ea IV NOW STA; Protocol Stop: 05/20/19 17:21 Last Admin: 05/20/19 17:46 Dose: Not Given Documented by: [id number] Heparin Sodium/Sodium Chloride (Heparin/Nss 1000 Unit/500ml Flush Bag) Confirm Administered Dose 4,000 units IV .STK-MED ONE Stop: 05/22/19 09:09 Last Admin: 05/22/19 10:54 Dose: 4,000 units Documented by: [id number] Heparin Sodium/Dextrose (Heparin Sodium/Dextrose) 25,000 units in 500 mls @ 28 mls/hr IV .[id number] [facility]; Protocol Stop: 06/19/19 17:29 Last Titration: 05/22/19 11:45 Dose: 0 units/hr, 0 mls/hr Documented by: [id number] Cosigned by: [id number] Titration: 05/22/19 09:00 Dose: 0 units/hr, 0 mls/hr Documented by: [id number] Cosigned by: [id number] Titration: 05/22/19 06:41 Dose: 1,200 units/hr, 24 mls/hr Documented by: [id number] Cosigned by: [id number] Admin: 05/22/19 04:24 Dose: 1,200 units/hr, 24 mls/hr Documented by: [id number] Cosigned by: [id number] Titration: 05/22/19 04:24 Dose: 1,200 units/hr, 24 mls/hr Documented by: [id number] Cosigned by: [id number] Titration: 05/21/19 18:58 Dose: 1,200 units/hr, 24 mls/hr Documented by: [id number] Cosigned by: [id number] Admin: 05/21/19 09:16 Dose: 1,200 units/hr, 24 mls/hr Documented by: [id number] Cosigned by: [id number] Titration: 05/21/19 09:16 Dose: 1,400 units/hr, 28 mls/hr Documented by: [id number] Cosigned by: [id number] Titration: 05/21/19 06:49 Dose: 1,400 units/hr, 28 mls/hr Documented by: [id number] Cosigned by: [id number] Titration: 05/21/19 02:13 Dose: 1,400 units/hr, 28 mls/hr Documented by: [id number] Cosigned by: [id number] Admin: 05/20/19 17:39 Dose: 1,600 units/hr, 32 mls/hr Documented by: [id number] Cosigned by: [id number] Sodium Chloride (Nss 1000ml) 1,000 mls @ 100 mls/hr IV .Q10H [facility] Stop: 05/22/19 16:14 Last Admin: 05/22/19 11:36 Dose: 100 mls/hr Documented by: [id number] Influenza Virus Vaccine (Fluzone High-Dose Pf) 0.5 ml IM .ONCE ONE Stop: 05/21/19 07:31 Last Admin: 05/21/19 09:12 Dose: Not Given Documented by: [id number] Losartan Potassium (Cozaar) 25 mg PO QPM [facility] Stop: 06/19/19 20:59 Last Admin: 05/21/19 20:48 Dose: 25 mg Documented by: [id number] Admin: 05/20/19 20:41 Dose: 25 mg Documented by: [id number] Metoprolol Succinate (Toprol Xl) 50 mg PO BID [facility] Stop: 06/19/19 20:59 Last Admin: 05/22/19 09:02 Dose: 50 mg Documented by: [id number] Admin: 05/21/19 20:50 Dose: 50 mg Documented by: [id number] Admin: 05/21/19 09:02 Dose: 50 mg Documented by: [id number] Admin: 05/20/19 20:41 Dose: 50 mg Documented by: [id number] Midazolam HCl (Versed) Confirm Administered Dose 2 mg .ROUTE .STK-MED ONE Stop: 05/22/19 09:09 Last Admin: 05/22/19 10:55 Dose: 3 mg Documented by: [id number] Midazolam HCl (Versed) Confirm Administered Dose 2 mg .ROUTE .STK-MED ONE Stop: 05/22/19 10:17 Last Admin: 05/22/19 10:55 Dose: Not Given Documented by: [id number] Nicardipine HCl (Cardene) Confirm Administered Dose 25 mg .ROUTE .STK-MED ONE Stop: 05/22/19 09:08 Last Admin: 05/22/19 10:54 Dose: 25 mg Documented by: [id number] Nitroglycerin/Dextrose (Nitroglycerin/D5w 100 Mcg/Ml 20ml Syringe) Confirm Administered Dose 2,000 mcg .ROUTE .STK-MED ONE Stop: 05/22/19 09:09 Last Admin: 05/22/19 10:55 Dose: 2,000 mcg Documented by: [id number] Ranitidine HCl (Zantac) 150 mg PO DAILY [facility] Stop: 06/20/19 08:59 Last Admin: 05/22/19 09:02 Dose: 150 mg Documented by: [id number] Admin: 05/21/19 09:01 Dose: 150 mg Documented by: [id number] Triamcinolone Acetonide (Kenalog 0.1%) 1 appln TOP BID [facility] Stop: 06/19/19 19:11 Last Admin: 05/22/19 08:46 Dose: Not Given Documented by: [id number] Admin: 05/21/19 20:48 Dose: Not Given Documented by: [id number] Admin: 05/21/19 09:01 Dose: Not Given Documented by: [id number] Admin: 05/20/19 20:41 Dose: Not Given Documented by: [id number] Admin: 05/20/19 19:55 Dose: Not Given Documented by: [id number] Vitamin D (Vitamin D3) 2,000 units PO QPM [facility] Stop: 06/19/19 20:59 Last Admin: 05/21/19 20:49 Dose: 2,000 units Documented by: [id number] Admin: 05/20/19 20:41 Dose: 2,000 units Documented by: [id number] Medical Decision Making Differential Diagnosis Differential diagnoses includes but is not limited to acute coronary syndrome, myocardial infarction, pericarditis, pulmonary embolus, aortic dissection, pneu monia, pneumothorax, musculoskeletal, shingles, esophageal. Medical Records Attestation: I reviewed the patient's medical records. Home Medications Current Medication List: was personally reviewed by me Laboratory Data Attestation: I reviewed the patient's lab results. Result diagrams: 05/20/19 15:49 05/22/19 06:42 Lab Results 1005/20/19 05/20/19 Range/Units 15:49 15:49 15:49 WBC 6.24 (4.8-10.8) K/uL RBC 5.30 (4.7-6.1) M/uL Hgb 16.7 (14.0-18.0) g/dL Hct 47.1 (42-52) % MCV 88.9 (80-100) fL MCH 31.5 (25-34) pg MCHC 35.5 (32-36) g/dL RDW Std Deviation 44.2 (36.4-46.3) fL RDW Coeff of Vi 13.6 (11.5-14.5) % Plt Count 231 (130-400) K/uL MPV 10.0 (7.4-10.4) fL Immature Gran % (Auto) 0.2 % Neut % (Auto) 64.5 % Lymph % (Auto) 24.4 % [place] % (Auto) 8.8 % Eos % (Auto) 1.8 % Baso % (Auto) 0.3 % Immature Gran # (Auto) 0.01 (0.00-0.02) K/uL Neut # (Auto) 4.03 (1.4-6.5) K/uL Lymph # (Auto) 1.52 (1.2-3.4) K/uL [place] # (Auto) 0.55 (0.11-0.59) K/uL Eos # (Auto) 0.11 (0-0.5) K/uL Baso # (Auto) 0.02 (0-0.2) K/uL PT 13.1 H (9.0-12.0) Seconds INR 1.3 H (0.9-1.1) APTT 26.4 (21.0-31.0) Seconds PTT Ratio 1.0 Sodium 136 (136-145) mmol/L Potassium 4.6 (3.5-5.1) mmol/L Chloride 105 (98-107) mmol/L Carbon Dioxide 25 (21-32) mmol/L Anion Gap 6.0 (3-11) BUN 18 (7-18) mg/dl Creatinine 1.07 (0.6-1.4) mg/dl Est Cr Clr Drug Dosing 80.8 ml/min Est GFR ( Amer) 81.7 Est GFR (Non-Af Amer) 70.5 BUN/Creatinine Ratio 16.9 (10-20) Glucose 96 (70-99) mg/dl Calcium 9.2 (8.5-10.1) mg/dl Total Bilirubin 2.2 H (0.2-1) mg/dl AST 37 (15-37) U/L ALT 56 (12-78) U/L Alkaline Phosphatase 70 (45-117) U/L Troponin I 0.024 (0-0.045) ng/ml Total Protein 8.0 (6.4-8.2) gm/dl Albumin 4.4 (3.4-5.0) gm/dl Globulin 3.6 (2.5-4.0) gm/dl Albumin/Globulin Ratio 1.2 (0.9-2) Imaging Data Radiologist's Impression: Radiology results as stated below per my review and the radiologist's interpretation: XR chest 1V portable CLINICAL HISTORY: Chest Pain pain COMPARISON STUDY: 08/23/2018 FINDINGS: Mild stable cardiomegaly. Prior median sternotomy. Lungs are clear. IMPRESSION: No acute process. The above report was generated using voice recognition software. It may contain grammatical, syntax or spelling errors. Electronically signed by: Juan Bliss M.D. 05/20/2019 4:02 PM ECG Data Attestation: I personally reviewed and interpreted this ECG as follows: Indication: chest pain Rate (beats per minute): 74 Rhythm: atrial fibrillation Findings: + other (aberrantly conducted complexes, LBBB) and + left axis deviation Comparison ECG Date: from (10/01/2018) Change: the following changes noted (QRS has widened and the LBBB is new) Blood Pressure Blood Pressure Findings: Elevated blood pressure Blood Pressure Disposition: further management by hospitalist MDM Narrative This pt was evaluated and appeared to be in no distress. IV access was obtained and lab work was drawn. Pt was given po ASA. PT was placed on the environmental monitoring specialist. EKG reveals a new LBBB. Lab work is reassuring with a negative troponin. Given the new changes on EKG and chest discomfort, with h/o CAD and bypass, pt was started on IV heparin and d/w the [facility] hospitalist for further management. He was advised of the findings and plan and agrees. Impression & Plan ACS (acute coronary syndrome), New onset left bundle branch block (LBBB) Discharge Plan Visit Data *Final* Discharge Date/Time: 05/20/19 18:25 Chief Complaint: Cardiac Assessment Stated Complaint: DIZZINESS,BLURRED VISIONI,SOB ED Provider: Merari Russo Discharge Problem: ACS (acute coronary syndrome), New onset left bundle branch block (LBBB) Patient Disposition: Admitted As Inpatient Discharge Instructions Interventions: ED Discharge Assessment Last Done: 05/20/19 18:25 The scribe's documentation has been prepared under my direction and personally reviewed by me in its entirety. I confirm that the note above accurately reflects all work, treatment, procedures, and medical decision making performed by me.
--- NOTE | 2019-05-20 18:09 | History & Physical Report ---
Date of Service May 20, 2019 Assessment & Plan (1) Chest pain: (2) SOB (shortness of breath): (3) ACS (acute coronary syndrome): (4) New onset left bundle branch block (LBBB): (5) Esophageal achalasia: (6) Atrial fibrillation, permanent: (7) Dyslipidemia: (8) Ischemic cardiomyopathy: (9) HTN (hypertension): (10) HLD (hyperlipidemia): (11) CAD (coronary artery disease): (12) Hx of CABG: Will follow chest pain protocol. Monitor EKG and cardiac enzymes per protocol. Consult cardiology. Patient was started on IV heparin drip in the ER. Continue the same. Continue home medications. Check echocardiogram. CODE STATUS full code History of Present Illness Chief Complaint: Chest pain shortness of breath Primary Care Provider: Ankit Turpin MD The patient is 69 years old male who presented to the ER with the complaints of chest pain and shortness of breath. His symptoms started this afternoon. He rates his chest pain as 4 out of 10, describes it as chest tightness in the retrosternal area. Currently the patient is chest pain-free and feeling better. The patient recently stopped his Coumadin, in anticipation of colonoscopy on Wednesday. In the ER, he was started on IV heparin drip. His EKG shows left bundle branch block, appears to be new. He will be admitted under observation for further evaluation and management. He follows up with Dr. Coronado the manufacturing assistant. Allergies Allergy/AdvReac Type Severity Reaction Status Date / Time bee venom protein (honey bee) Allergy Severe CHOKING Verified 05/02/19 16:18 WITH GENERALIZED SWELLING procaine Allergy Unknown ANAPHYLAXIS Verified 05/02/19 16:18 strawberry Allergy Unknown HIVES WITH Verified 05/02/19 16:18 ALOT metformin AdvReac Unknown Nausea Verified 05/02/19 16:18 omeprazole AdvReac Unknown DIARRHEA Verified 05/02/19 16:18 GI UPSET hepatitis A virus vaccine AdvReac Verified 05/02/19 16:18 [From Twinrix] hepatitis B virus vaccine, AdvReac Verified 05/02/19 16:18 recombin [From Twinrix] Home Medications Home Medications Medication Instructions Recorded Confirmed Type aspirin [Aspirin Low Dose] 81 mg PO QAM #0 09/20/14 05/20/19 History losartan 25 mg PO QPM 04/02/18 05/20/19 History nitroglycerin [Nitrostat] 0.4 mg SUBLINGUAL DIRECTED PRN 04/02/18 05/20/19 History warfarin 5 mg PO 4XWK 04/02/18 05/20/19 History cholecalciferol (vitamin D3) 2,000 units PO QPM 08/23/18 05/20/19 History [Vitamin D3] metoprolol succinate 50 mg PO BID 08/23/18 05/20/19 History warfarin 7.5 mg PO 3XWK 09/30/18 05/20/19 History ranitidine 150 mg capsule 150 mg PO DAILY cap 02/20/19 05/20/19 History atorvastatin 40 mg tablet 20 mg PO HS #45 tab 04/04/19 05/20/19 Rx triamcinolone acetonide 0.1 % 1 appln TOPICAL .COMPLEX gm 04/19/19 05/20/19 History topical cream Past Med/Surg History Medical History Migraine Temporomandibular joint disorder CLICKS BILAT SIDES HAS NEVER LOCKED Diabetes mellitus, type 2 BORDERLINE-NO MEDS GERD (gastroesophageal reflux disease) Diverticular disease HX Osteoarthritis Gout Actinic keratosis (Acute) Adenomatous polyp of colon (Acute) Claustrophobia (Acute) Colon polyp (Acute) Coronary artery arteriosclerosis (Acute) Diverticulitis of colon (Acute) Dyslipidemia (Acute) Dysphagia (Acute) Erectile dysfunction (Acute) Hiatal hernia (Acute) Hyperthyroidism (Acute) Ischemic cardiomyopathy (Acute) Left ventricular aneurysm (Acute) Leukopenia (Acute) Lymphadenopathy (Acute) Osteopenia (Acute) Past myocardial infarction (Acute) Pre-diabetes (Acute) Rising PSA remaining within normal limits (Acute) Snoring (Acute) Syncope (Acute) Ventricular tachycardia (Acute) Vitamin D deficiency (Acute) Witnessed apneic spells (Acute) Atrial fibrillation (Chronic) Myocardial infarction (Resolved) 1987-CARDIAC CATH NO STENTS CAD (coronary artery disease) (Chronic) CABG 3 [facility]SELS - [facility] [place]-distant history mi HTN (hypertension) (Chronic) HLD (hyperlipidemia) (Chronic) Chronic atrial fibrillation Diverticulitis (Chronic) DARRYN (obstructive sleep apnea) (Chronic) MOUTHPIECE HS Surgical History Esophageal achalasia SURGERY TO REPAIR-METAL CLIP PRESENT IN AREA H/O sinus surgery (Resolved) Hx of CABG (Chronic) 3 V[facility]SELS [facility] Family History Father , Mother of ovarian cancer at the age of 68. She also had diabetes. Father of an [place] at the age of 71. Hypertension Myocardial infarction Cardiovascular disease Mother Family history of diabetes mellitus Uterine cancer Son Hypertension Diabetes Social History Preferred Language: [place] Communication Ability: Effective Petroleum Engineer Required: No Beliefs That Will Affect Care: None Current Living Situation: Significant Other Feels Safe at Home: Yes Smoking Status: Former smoker Tobacco Type: cigarettes and pipe ; Age Quit Using Tobacco: 43 ; Second Hand Exposure: No ; Hx Alcohol Use: Yes Alcohol type: beer Alcohol Intake Frequency: Holidays/Special Occasions Hx Substance Use: No Dental Care, Regularly: Yes Physical Activity Frequency: Daily Seatbelt Use: always Sunscreen Use: No Review of Systems Review of Systems: All systems reviewed & are unremarkable except as noted in HPI & below Cardiovascular: + chest pain and + dyspnea Physical Exam Physical Exam: GENERAL : No acute distress EYES: No icterus, gaze conjugate NOSE: No evidence of epistaxis MOUTH: No lesions or candidiasis, mucosa moist NECK: Supple LUNGS: CTA B/L, no wheezes, rales or rhonchi HEART: Irregularly irregular ABDOMEN: Soft, NT, ND, BS Present EXTREMITIES: No LE edema, pedal pulses intact NEURO: A&OX3 Results & Data Vital Signs (Past 12 Hours) Vital Signs Temp Pulse Resp BP Pulse Ox 05/20/19 17:30 69 17 142/108 H 98 05/20/19 17:00 58 L 19 130/100 96 05/20/19 16:30 66 21 126/99 97 05/20/19 16:00 77 20 126/98 97 05/20/19 15:44 70 21 97 05/20/19 15:41 75 15 143/86 H 97 05/20/19 15:15 97.3 F L 73 18 152/107 H 97 Laboratory Results 05/20/19 15:49 05/20/19 15:49 05/20/19 05/20/19 05/20/19 Range/Units 15:49 15:49 15:49 WBC 6.24 (4.8-10.8) K/uL RBC 5.30 (4.7-6.1) M/uL Hgb 16.7 (14.0-18.0) g/dL Hct 47.1 (42-52) % MCV 88.9 (80-100) fL MCH 31.5 (25-34) pg MCHC 35.5 (32-36) g/dL RDW Std Deviation 44.2 (36.4-46.3) fL RDW Coeff of Vi 13.6 (11.5-14.5) % Plt Count 231 (130-400) K/uL MPV 10.0 (7.4-10.4) fL Immature Gran % (Auto) 0.2 % Neut % (Auto) 64.5 % Lymph % (Auto) 24.4 % Kleberg % (Auto) 8.8 % Eos % (Auto) 1.8 % Baso % (Auto) 0.3 % Immature Gran # (Auto) 0.01 (0.00-0.02) K/uL Neut # (Auto) 4.03 (1.4-6.5) K/uL Lymph # (Auto) 1.52 (1.2-3.4) K/uL Kleberg # (Auto) 0.55 (0.11-0.59) K/uL Eos # (Auto) 0.11 (0-0.5) K/uL Baso # (Auto) 0.02 (0-0.2) K/uL PT 13.1 H (9.0-12.0) Seconds INR 1.3 H (0.9-1.1) APTT 26.4 (21.0-31.0) Seconds PTT Ratio 1.0 Sodium 136 (136-145) mmol/L Potassium 4.6 (3.5-5.1) mmol/L Chloride 105 (98-107) mmol/L Carbon Dioxide 25 (21-32) mmol/L Anion Gap 6.0 (3-11) BUN 18 (7-18) mg/dl Creatinine 1.07 (0.6-1.4) mg/dl Est Cr Clr Drug Dosing 80.8 ml/min Est GFR ( Amer) 81.7 Est GFR (Non-Af Amer) 70.5 BUN/Creatinine Ratio 16.9 (10-20) Glucose 96 (70-99) mg/dl Calcium 9.2 (8.5-10.1) mg/dl Total Bilirubin 2.2 H (0.2-1) mg/dl AST 37 (15-37) U/L ALT 56 (12-78) U/L Alkaline Phosphatase 70 (45-117) U/L Troponin I 0.024 (0-0.045) ng/ml Total Protein 8.0 (6.4-8.2) gm/dl Albumin 4.4 (3.4-5.0) gm/dl Globulin 3.6 (2.5-4.0) gm/dl Albumin/Globulin Ratio 1.2 (0.9-2) Diagnostic Findings XR chest 1V portable CLINICAL HISTORY: Chest Pain pain COMPARISON STUDY: 08/23/2018 FINDINGS: Mild stable cardiomegaly. Prior median sternotomy. Lungs are clear. IMPRESSION: No acute process. The above report was generated using voice recognition software. It may contain grammatical, syntax or spelling errors. Code Status & VTE Plan Code Status full code VTE Prophylaxis Plan VTE Prophylaxis will be ordered: Yes PG Care Time/CCT Total # of Minutes Spent Total Time Spent with Patient: Total time spent is greater than 50% in coordination of care (as documented) at patient's floor/unit and/or counseling patient:60 min
[2019-05-20] MEDS ORDERED: MAGNESIUM HYDROXIDE SUSP 30 ML UDC PO PRN (19:12)
[2019-05-20] MEDS ORDERED: ACETAMINOPHEN 325 MG TAB PO PRN (19:12)
[2019-05-20] MEDS ORDERED: POLYETHYLENE (MIRALAX) 17 GM PACK PO PRN (19:12)
[2019-05-20] MEDS ORDERED: NITROGLYCERIN SL 0.4 MG/TAB TAB SL PRN (19:12)
[2019-05-20] MEDS ORDERED: ALUMINUM/MAGNESIUM SUSP 30 ML UDC PO PRN (19:12)
[2019-05-20] MEDS ORDERED: ONDANSETRON INJ 2 MG/ML 2 ML VIAL IV PRN (19:12)
[2019-05-20] MEDS ORDERED: WARFARIN SOD 5 MG TAB PO SCH (19:45)
[2019-05-20] MEDS: TRIAMCINOLONE ACET 0.1% CR 15 GM TUBE TOP SCH ×2 (19:55→20:41)
[2019-05-20] MEDS: LOSARTAN POTASSIUM 25 MG TAB PO SCH (20:41)
[2019-05-20] MEDS: METOPROLOL SUCC 50MG EXT REL TAB PO SCH (20:41)
[2019-05-20] MEDS: CHOLECALCIFEROL 1,000 UNITS TAB PO SCH (20:41)
[2019-05-20] MEDS: ATORVASTATIN 20 MG TAB PO SCH (20:41)
[2019-05-21 01:23] LABS: Partial Thromboplastin Ratio 2.9
[2019-05-21 01:39] LABS: Partial Thromboplastin Time 79.7 Seconds (21.0-31.0)
[2019-05-21] MEDS ORDERED: INFLUENZA ADMINISTRATION CHARGE ONE (07:30)
[2019-05-21] MEDS ORDERED: INFLUENZA VACCINE HIGH DOSE 65+ 0.5 ML SYR IM ONE (07:30)
[2019-05-21 08:47] LABS: Partial Thromboplastin Ratio 2.9
[2019-05-21 09:00] LABS: Partial Thromboplastin Time 79.7 Seconds (21.0-31.0)
[2019-05-21] MEDS: TRIAMCINOLONE ACET 0.1% CR 15 GM TUBE TOP SCH ×2 (09:01→20:48)
[2019-05-21] MEDS: ASPIRIN 81 MG ECTAB PO SCH (09:02)
[2019-05-21] MEDS: METOPROLOL SUCC 50MG EXT REL TAB PO SCH ×2 (09:02→20:50)
[2019-05-21] MEDS: HEPARIN SODIUM/DEXTROSE 25,000 UNITS/500 ML BAG IV SCH (09:16)
--- NOTE | 2019-05-21 12:03 | Cardiology Consultation ---
Date of Consultation May 21, 2019 Assessment & Plan (1) Atypical chest pain: He describes a very atypical chest discomfort number of days before presentation, it does not sound anginal however it was unusual for him and was a funny feeling in his chest lasting about 30 seconds. It was atypical enough I am not sure it represents angina and he has not had abnormal enzymes to suggest myocardial injury. We may have to evaluate him for ischemic heart disease however. At this point I have not scheduled him for stress test or a catheterization but will leave that decision until tomorrow morning, I will make him n.p.o. however. (2) SOB (shortness of breath): He describes exertional shortness of breath on the day of admission, evidently this is quite unusual for him. This could be an anginal equivalent, it could also relate to the development of a heart rate related left bundle branch block which could cause symptoms. That could potentially be evaluated with a stress test, although I have not arrange that as yet. Alternatively he may need catheterization as noted below. (3) New onset left bundle branch block (LBBB): He had a left bundle branch block on presentation yesterday, and electr ocardiogram has not been done yet today (I did order it). Based on the irregular rhythm and one beat which is not a left bundle branch block pattern after a pause I believe this is a rate related left bundle pattern and may have been present for some time. Prior electrocardiograms do not show it but his heart rate generally is lower (including on telemetry) which may explain identification of this in the emergency room. I will check it again on electrocardiography today. The difficulty in this finding is that if we do some type of stress test to increase his heart rate (either exercise or pharmacologic) and he developed a left bundle branch block pattern and echocardiography will not be beneficial in which case we will need a nuclear test. Given his history and aneurysm repair perhaps this would be the best option in any case. (4) Atrial fibrillation, permanent: He has permanent atrial fibrillation is on warfarin as an anticoagulant, he has been off of warfarin for several days due to an upcoming colonoscopy. His INR is still 2.9 today, likely will drop in the next day or 2 off of anticoagulation. (5) Coronary artery arteriosclerosis: He has a history of coronary disease, he has not had a ischemia identified on stress testing but his last test was in 2017. We will probably need to do so me type of test to exclude ischemia as a cause of his current symptoms as noted above. That would either be a pharmacologic stress test using a nuclear imaging agent due to his probable rate related left bundle branch block, or a catheterization. I have not made that decision at this point. (6) Ischemic cardiomyopathy: He has a history of a mild ischemic cardiomyopathy. He has not had an evaluation recently, we will review his echocardiogram which was done this morning. His left ventricular function has declined I think we should proceed to catheterization, if not stress testing may be an option. (7) Anticoagulant long-term use: He needs to be on anticoagulation over the long run, currently he takes w arfarin which has been held for several days for upcoming colonoscopy. I would recommend continuing to hold it. His INR is 2.9 today. History of Present Illness Reason for Consultation: Chest pain, LBBB Attending Physician: Damián Calhoun MD History of Present Illness This is a 69-year-old male with hypercholesterolemia, hypertension as well as ischemic heart disease in permanent atrial fibrillation. 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 As of September 2016 he had a mild ischemic cardiomyopathy with ejection fraction of 45 to 50%. For his atrial fibrillation he is maintained on metoprolol succinate 50 mg twice a day as well as warfarin. He has been off of anticoagulation recently however as he is scheduled for a colonoscopy on May 22, 2019, which will probably be canceled. He presented to the emergency room on May 20, 2019 after having a collection of symptoms which he has not had before. He was at work on , May 18, 2019 when he stood up and had a funny hot sensation in his chest with radiation to both shoulders, it was not pain it was more like a hot sensation, and it lasted about 30 seconds and then resolved. He did not have further chest discomfort however he was not feeling well in a nonspecific way on May 19, 2019 so he called off of work (he works at [employer] but does not do heavy work). On May 20, 2019 when he was walking in the mall he had some shortness of breath with exertion which is unusual for him, he does not recall having it before and he was not doing anything terribly strenuous. He also noted some blurred vision which lasted about an hour, when that occurred he came to the emergency room and he feels the blurred vision lasted another half hour while he was in the emergency room and then resolved. He is clear that it was not blindness, it was in both eyes it was not associated with lightheadedness or dizziness and he noted that his pulse was strong when he had those symptoms, apparently he is used to taking his pulse. He was admitted, he has had no further symptoms since admission. Allergies Allergy/AdvReac Type Severity Reaction Status Date / Time bee venom protein (honey bee) Allergy Severe CHOKING Verified 05/02/19 16:18 WITH GENERALIZED SWELLING procaine Allergy Unknown ANAPHYLAXIS Verified 05/02/19 16:18 strawberry Allergy Unknown HIVES WITH Verified 05/02/19 16:18 ALOT metformin AdvReac Unknown Nausea Verified 05/02/19 16:18 omeprazole AdvReac Unknown DIARRHEA Verified 05/02/19 16:18 GI UPSET hepatitis A virus vaccine AdvReac Verified 05/02/19 16:18 [From Twinrix] hepatitis B virus vaccine, AdvReac Verified 05/02/19 16:18 recombin [From Twinrix] Home Medications Home Medications Medication Instructions Recorded Confirmed Type aspirin [Aspirin Low Dose] 81 mg PO QAM #0 09/20/14 05/20/19 History losartan 25 mg PO QPM 04/02/18 05/20/19 History nitroglycerin [Nitrostat] 0.4 mg SUBLINGUAL DIRECTED PRN 04/02/18 05/20/19 History warfarin 5 mg PO 4XWK 04/02/18 05/20/19 History cholecalciferol (vitamin D3) 2,000 units PO QPM 08/23/18 05/20/19 History [Vitamin D3] metoprolol succinate 50 mg PO BID 08/23/18 05/20/19 History warfarin 7.5 mg PO 3XWK 09/30/18 05/20/19 History ranitidine 150 mg capsule 150 mg PO DAILY cap 02/20/19 05/20/19 History atorvastatin 40 mg tablet 20 mg PO HS #45 tab 04/04/19 05/20/19 Rx triamcinolone acetonide 0.1 % 1 appln TOPICAL .COMPLEX gm 04/19/19 05/20/19 History topical cream Patient History Medical History Migraine Temporomandibular joint disorder CLICKS BILAT SIDES HAS NEVER LOCKED Diabetes mellitus, type 2 BORDERLINE-NO MEDS GERD (gastroesophageal reflux disease) Diverticular disease HX Osteoarthritis Gout Actinic keratosis (Acute) Adenomatous polyp of colon (Acute) Claustrophobia (Acute) Colon polyp (Acute) Coronary artery arteriosclerosis (Acute) Diverticulitis of colon (Acute) Dyslipidemia (Acute) Dysphagia (Acute) Erectile dysfunction (Acute) Hiatal hernia (Acute) Hyperthyroidism (Acute) Ischemic cardiomyopathy (Acute) Left ventricular aneurysm (Acute) Leukopenia (Acute) Lymphadenopathy (Acute) Osteopenia (Acute) Past myocardial infarction (Acute) Pre-diabetes (Acute) Rising PSA remaining within normal limits (Acute) Snoring (Acute) Syncope (Acute) Ventricular tachycardia (Acute) Vitamin D deficiency (Acute) Witnessed apneic spells (Acute) Atrial fibrillation (Chronic) Myocardial infarction (Resolved) 1987-CARDIAC CATH NO STENTS CAD (coronary artery disease) (Chronic) CABG 3 VESSELS - [facility] [place]-distant history mi HTN (hypertension) (Chronic) HLD (hyperlipidemia) (Chronic) Chronic atrial fibrillation Diverticulitis (Chronic) DARRYN (obstructive sleep apnea) (Chronic) MOUTHPIECE HS Surgical History Esophageal achalasia SURGERY TO REPAIR-METAL CLIP PRESENT IN AREA H/O sinus surgery (Resolved) Hx of CABG (Chronic) 3 [facility]LS [facility] Family History Father , Mother of ovarian cancer at the age of 68. She also had diabetes. Father of an [place] at the age of 71. Hypertension Myocardial infarction Cardiovascular disease Mother Family history of diabetes mellitus Uterine cancer Son Hypertension Diabetes Social History Preferred Language: Citizen Of [place] Communication Ability: Effective Anime Artist Required: No Beliefs That Will Affect Care: None Current Living Situation: Significant Other Feels Safe at Home: Yes Smoking Status: Former smoker Tobacco Type: cigarettes and pipe ; Age Quit Using Tobacco: 43 ; Second Hand Exposure: No ; Hx Alcohol Use: Yes Alcohol type: beer Alcohol Intake Frequency: Holidays/Special Occasions Hx Substance Use: No Dental Care, Regularly: Yes Physical Activity Frequency: Daily Seatbelt Use: always Sunscreen Use: No Physical Exam Physical Exam: Constitutional: Alert, cooperative and in no distress. HEENT: Unremarkable Neck: No jugular venous distention, carotid pulses are irregular but otherwise normal and equal bilaterally without bruits. Pulmonary: Clear to auscultation bilaterally. Cardiac: Irregular rhythm with no murmur, gallop or rub. Abdomen: Soft, nontender with normal bowel sounds. Extremities: No edema. Distal pulses intact. Neurologic: No focal findings. Gait is steady. Skin: No rash, ecchymoses or petechiae. Results & Data Vital Signs (Past 12 Hours) Vital Signs Temp Pulse Resp BP Pulse Ox 05/21/19 04:02 36.5 C 67 18 104/71 96 Diagnostic Findings Electrocardiogram on the afternoon of May 20, 2019 showed predominantly a left bundle branch block pattern with a very wide QRS complex, however it appears to be rate related in that there is a narrow complex beat following a pause. The underlying rhythm is atrial fibrillation at a controlled heart rate. Telemetry: Atrial fibrillation with a heart rate ranging from 50 to 70 bpm. Echocardiogram: Pending PG Care Time/CCT Total # of Minutes Spent Total Time Spent with Patient: Total time spent is greater than 50% in coordination of care (as documented) at patient's floor/unit and/or counseling patient:
[2019-05-21 15:55] LABS: Partial Thromboplastin Time 53.5 Seconds (21.0-31.0)
[2019-05-21] MEDS ORDERED: WARFARIN SOD 7.5 MG TAB PO SCH (16:00)
--- NOTE | 2019-05-21 17:49 | Hospitalist Progress Note ---
Date of Service May 21, 2019 Assessment & Plan (1) Hot flash in male: Denies chest pain. More of a heat in his chest radiating to both shoulders while bending over and back up on during his achalasia episode. 30 second episode. This is more consistent with reflux probably from food stuck in esophagus from spastic achalasia although difficult to definitively say not cardiac. (2) Shortness of breath on exertion: Episode occurred while walking in the mall with associated eye blurring. Possible hypotensive episode ?tachycardic episode although sounds more concerning for cardiac given associated shortness of breath on exertion. EKG - rate related LBBB. Agree this episode less able to relate to his spastic achalasia and cardiac catheterization is warranted. (3) New onset left bundle branch block (LBBB): as above (4) Esophageal achalasia: If recurrent episode recommend GI consult. (5) Atrial fibrillation, permanent: Current off warfarin in preparation for colonoscopy. Continue IV heparin drip pending cardiac cath. Depending on results may need to be restarted on anticoagulation. Currently rate controlled. (6) Dyslipidemia: Continue atorvastatin (7) Ischemic cardiomyopathy: Continue BB + ARB. No current symptoms/signs of heart failure (8) HTN (hypertension): Continue BB + ARB (9) CAD (coronary artery disease): Continue ASA, BB, ARB, statin. Further anticoagulation depending on cath results. If no intervention recommend staying off warfarin so he can have his cardiac cath (10) Hx of CABG: (11) DVT prophylaxis: Continue IV heparin drip (12) Discharge planning issues: At baseline physical health. No PT/OT ordered. Plan for discharge home pending cardiac workup outcome Subjective Revisited history with the patient. Reports having chest pain episode consistent with his spastic achalasia with food getting stuck on Wednesday. He has already had one operation for this last year but is currently undergoing workup with [facility] and recent manometry in March confirmed spastic achalasia still present. This meant on and Wednesday he had little to nothing to eat or drink. He reports not having chest pain but a heat radiating from his chest to both shoulders on while leaning over and then back up, this lasted for 30 seconds and was a new feeling that he has never had before. He did take his usual medications that day and feels they just sat above the food bolus and di sintegrated there. His second episode was while walking in the mall. Sudden onset shortness of breath on exertion with lightheadedness and eyes blurring. Similar hot flash episode lasting 30 seconds at the same time but denies any "chest pain". Relieved with rest. Review of Systems Review of Systems: All systems reviewed & are unremarkable except as noted in HPI & below Physical Exam Constitutional: well developed and + obese; no acute distress Eyes: normal pupil size ENMT: external ear and nose normal, oropharynx normal Neck: trachea midline and + thick neck Respiratory: normal respiratory effort, lungs clear to auscultation Cardiovascular: Rate/Rhythm: + irregularly irregular Heart Sounds: no murmur Vessels: no JVD Gastrointestinal (Abdomen): normal bowel sounds, soft, nontender, no hepatosplenomegaly Musculoskeletal: no cyanosis or clubbing, extremities motor strength 5/5 Skin: no rashes, warm and dry Neurologic: moves all extremities and awake; + CN's not intact and no focal motor deficits Speech / Cognition: normal speech Motor/Sensory: no tremor, no pronator drift and no sensory deficit Psychiatric: A+Ox3, euthymic affect Results & Data Vital Signs (Past 12 Hours) Vital Signs Temp Pulse Resp BP Pulse Ox 05/21/19 15:39 98.1 F 70 20 126/81 95 PG Care Time/CCT Total # of Minutes Spent Total Time Spent with Patient: Total time spent is greater than 50% in coordination of care (as documented) at patient's floor/unit and/or counseling patient: (1) CAD (coronary artery disease) Coronary Disease-Associated Artery/Lesion type: [place] artery [place] vs. transplanted heart: [place] chin heart Associated angina: angina presence unspecified Qualified Code(s): I25.10 - Atherosclerotic heart disease of [place] coronary artery without angina pectoris (2) HTN (hypertension) Hypertension type: essential hypertension Qualified Code(s): I10 - Essential (primary) hypertension
[2019-05-21] MEDS: LOSARTAN POTASSIUM 25 MG TAB PO SCH (20:48)
[2019-05-21] MEDS: ATORVASTATIN 20 MG TAB PO SCH (20:48)
[2019-05-21] MEDS: CHOLECALCIFEROL 1,000 UNITS TAB PO SCH (20:49)
[2019-05-22] MEDS: HEPARIN SODIUM/DEXTROSE 25,000 UNITS/500 ML BAG IV SCH (04:24)
[2019-05-22 07:28] LABS: Partial Thromboplastin Ratio 1.9
[2019-05-22 07:34] LABS: Albumin Globulin Ratio 1.2 (0.9-2); Albumin Level 3.7 gm/dl (3.4-5.0); BUN Creatinine Ratio 17.4 (10-20); Bilirubin,Total 1.6 mg/dl (0.2-1); Calcium 8.7 mg/dl (8.5-10.1); Est GFR (African American) 93.1; Est GFR (Non-African American) 80.3; Globulin 3.2 gm/dl (2.5-4.0); Partial Thromboplastin Time 51.2 Seconds (21.0-31.0); Total Protein 6.9 gm/dl (6.4-8.2)
[2019-05-22] MEDS: TRIAMCINOLONE ACET 0.1% CR 15 GM TUBE TOP SCH (08:46)
[2019-05-22] MEDS: METOPROLOL SUCC 50MG EXT REL TAB PO SCH (09:02)
[2019-05-22] MEDS: ASPIRIN 81 MG ECTAB PO SCH (09:02)
[2019-05-22] MEDS ORDERED: HEPARIN (PORCINE) 1000 UNIT/ML 10 ML (CATH LAB USE ONLY) ONE (09:07)
[2019-05-22] MEDS ORDERED: fentaNYL citrate 100 MCG/2 ML VIAL ONE (09:07)
[2019-05-22] MEDS ORDERED: NiCARDipine HCL INJ 2.5 MG/ML 10 ML AMP ONE (09:07)
[2019-05-22] MEDS ORDERED: NITROGLYCERIN/D5W 100MCG/ML 20ML SYR ONE (09:08)
[2019-05-22] MEDS ORDERED: MIDAZOLAM HCL 1 MG/ML 2ML VIAL ONE ×2 (09:08→10:16)
--- NOTE | 2019-05-22 10:06 | Cardiology Progress Note ---
Date of Service May 22, 2019 Assessment & Plan (1) Atypical chest pain: The patient has been pain-free since admission. However, as described by Dr. Morfin, we will proceed with a cardiac catheterization as a prior nuclear stress test showed multiple defects. (2) SOB (shortness of breath): As above, this is another indication for a cardiac catheterization. (3) New onset left bundle branch block (LBBB): Suspect this is a rate-related left bundle branch block. (4) Atrial fibrillation, permanent: The patient carries a history of permanent atrial fibrillation. Warfarin has been placed on hold and his INR was 1.3 on May 20. Was placed on intravenous heparin. (5) Coronary artery arteriosclerosis: The patient has a history of 3 vessel bypass performed in 1999. This included an CORREA to the LAD and 2 saphenous vein grafts to unknown targets. (6) Ischemic cardiomyopathy: Left ventricular ejection fraction is down to 30-35% from the previously noted ejection fraction of 45%. There is a large akinetic segment involving the anterior wall, anterolateral wall, anteroseptum, and the apex. 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 (7) Anticoagulant long-term use: Warfarin currently on hold with a heparin bridge. Could consider initiating one of the newer agents at discharge. Subjective The patient is resting comfortably at the bedside without complaints of chest pain or dyspnea. We have discussed the need for a cardiac catheterization. His is at the bedside. They both understand and agree to proceed. Physical Exam Physical Exam: In general this is a well-developed well-nourished white male in no acute distress. HEENT exam is negative. Neck is supple with full carotid upstrokes. There are no carotid bruits. Jugular venous pressure is flat at 90. There is no thyromegaly. Cardiovascular exam reveals a regular rhythm with a normal S1 and S2. No S3, S4, or murmurs are noted. Chest reveals a well- healed midline scar. Lungs are clear without rales, rhonchi, or wheezes. Abdomen is soft and nontender without bruits. Extremities reveal intact radial artery and posterior tibial pulses bilaterally. There is no peripheral edema. Results & Data Vital Signs (Past 12 Hours) Vital Signs Temp Pulse Pulse Resp BP Pulse Ox 05/22/19 07:35 36.6 C 55 L 16 117/85 95 05/22/19 04:07 36.6 C 63 18 120/85 97 05/22/19 01:13 68 05/22/19 00:00 36.5 C 64 18 124/79 97 PG Care Time/CCT Total # of Minutes Spent Total Time Spent with Patient: Total time spent is greater than 50% in coordination of care (as documented) at patient's floor/unit and/or counseling patient:
--- NOTE | 2019-05-22 10:49 | Pre Anesthesia Assessment ---
Date of Service May 22, 2019 Pre Sedation Assessment Vital Signs Temp Pulse Pulse Resp BP BP Pulse Ox 05/22/19 07:35 97.9 F 55 L 16 117/85 95 05/22/19 04:07 97.9 F 63 18 120/85 97 05/22/19 01:13 68 05/22/19 00:00 97.7 F 64 18 124/79 97 05/21/19 20:51 65 116/85 05/21/19 15:39 98.1 F 70 20 126/81 95 Cardiovascular RRR, no murmur, no edema Respiratory normal respiratory effort, lungs clear to auscultation Pre-Sedation Airway Assessment Smoking Status: Former smoker Hx Sleep Apnea: Yes (cpap) Hx Difficult Intubation: No Short, Thick Neck: No Thyromental Distance: > or= 3.5 Finger Breadths Oral Cavity: + WNL Mallampati Class: I ASA: ASA3 NPO Status Date of Last Intake of Fluids: 05/21/19 Time of Last Intake of Fluids: 21:00 Date of Last Intake of Solid Food: 05/21/19 Time of Last Intake of Solid Foods: 18:00 Procedure Planning Contraindications for Sedation: none Current Medications Reviewed: Yes Notes The planned sedation has been discussed with the patient. Informed Consent was obtained. I have identified the patient, determined the appropriateness of s edation and have assessed the patient immediately prior to the procedure. All medicine(s) and interventions are by my order.
--- NOTE | 2019-05-22 10:50 | Post Anesthesia Assessment ---
Date of Service May 22, 2019 Post Sedation Assessment Vital Signs Temp Pulse Pulse Resp BP BP Pulse Ox 05/22/19 07:35 97.9 F 55 L 16 117/85 95 05/22/19 04:07 97.9 F 63 18 120/85 97 05/22/19 01:13 68 05/22/19 00:00 97.7 F 64 18 124/79 97 05/21/19 20:51 65 116/85 05/21/19 15:39 98.1 F 70 20 126/81 95 Recovery Score Activity: Moves 4 extremities Respiration: Deep Breath/Cough Circulation: +/-20% PreAnes Value Consciousness: Fully Awake Oxygen Saturation: O2 needed for >90% Discharge Sedation Level of Care: Fast Track Phase II Post Sedation Plan On clinical assessment, the patient appears to have tolerated the sedation without complications. Patient is recovering as anticipated. Patient will continue to be monitored by nursing and may be discharged when sedation discharge criteria are met per below protocol. Upon Completions of procedure and additional 15 minutes continue every 5 minute vital signs and the P.A.R. score; then discharge to a Phase I or Fast Track to Phase II per the following guidelines: * Discharge Patient to appropriate Phase II area if PAR is 8 or greater or return to pre- procedure baseline. The post - procedure orders will be as directed. * If PAR score is less than 8 or not return to pre-procedure baseline then patient will follow Phase I monitoring till PAR is reached for Phase II. The Phase I may be done in procedure room or may call to secure a Phase I area. * If naloxone or flumazenil are used for reversal, hold in Phase I for continued monitoring from when last reversal dose was given for a minimum of 60 minutes or longer pending the nurse and/or physician discretion of patient condition before discharge to Phase II. Please call the Sedation Physician to re-evaluate and complete post-note for discharge to Phase II area. Do NOT discharge from procedure sedation or Phase 1 until post- sedation evaluation note is complete by procedure /sedation MD Sedation Discharge Instructions to be given to the patient at discharge to home.
--- NOTE | 2019-05-22 10:59 | Cardiac Catheterization ---
[facility] Data: School Psychologist Assistant Cardiac Status Clinical evaluation leading to the procedure CAD Presenation: Unstable angina Anginal Classification: CCS II Heart Failure: No Cardiogenic Shock within 24 Hours: No Cardiac Arrest within 24 Hours: No Imaging Studies Past 6 Months: Yes Stress Studies Past 6 Months: No Diagnostic Physicians Name: Ankit Chery MD Status: Elective Closure Device Percutaneous Entry Location: Radial Closure Device: Radial Band Recommendations: Medical Therapy and/or Counseling and PCI without planned CABG Intraprocedure Events Significant Disection: No Perforation: No Cardiac Cath Procedure Full Procedure Date May 22, 2019 Pre-Procedure Diagnosis Pre-Procedure Diagnosis: Acute Coronary Syndrome and Cardiomyopathy AUC Score AUC Score: 7 Post-Procedure Diagnosis Post-Procedure Diagnosis: Severe CAD Procedure(s) Performed Procedure(s) Performed: Coronary Angiography and Bypass Graft Angiography Shell Sieve Operator Ankit Chery MD Mechanical Maintenance(s) [place] Estimated Blood Loss Estimated Blood Loss: 10 Medication(s) Medication(s): Fentanyl, Lidocaine 1%, Nicardipine, Nitroglycerin and Versed Summary of Findings Indication: Suspected acute coronary syndrome, mild decline in LV function Access: 6 Fr left radial artery via ultrasound-guidance Catheters: JR4, JL4, MPA, CHIARA Findings: LM -luminal irregularities LAD -100% proximal occlusion at takeoff of first septal. Moderate caliber first diagonal fills via left to left collaterals. Circumflex -moderate caliber vessel 20-30 % mid segment disease into large OM 2. Large OM 2 with 40-50% mid segment stenosis. Small OM 3 with diffuse 80% disease. RCA -large caliber vessel, dominant, 80 to 90% earlymid at takeoff of acute marginal, 30 to 40% diffuse distal, 60 to 70% disease just before takeoff of PDA/anastomosis with vein graft. 95% stenosis in right posterior AV branch with post stenosis ectasia before PLB's. CORREA to LADwidely patent, diffuse 70% disease in small LAD after anastomosis SVG to OMoccluded SVG Y graft to distal RCA, PDA60 to 70% mid graft disease Arterial Closure: TR band Summary: 1. CORREA to LAD patent with diffuse 70% disease in small distal LAD after anastomosis 2. SVG to distal RCA/PDA with 60 to 70% mid graft disease. 3. SVG to OM occluded 4. Severe chronic multivessel [place] coronary artery disease -100% proximal LAD 80% earlymid RCA, 60 to 70% distal RCA, 95% right posterior AV branch Recommendations: No high risk, critical lesions identified. Recommend medical management with optimization of antianginal therapy/guideline directed medical therapy for cardiomyopathy. If refractory symptoms in the future could consider PCI to vein graft to RCA/PDA or intervention to small LAD via CORREA. Hemodynamics Rest Ao:: 93/61/70 Final Ao: 101/70/83 LV: -- Recommendations Recommendations: Medical Therapy and/or Counseling and PCI without planned CABG Specimens Specimens: None Radiation Exposure (mGy) 2830 Contrast (mls) 120 Fluids (cc crystalloids) Fluids (cc crystalloids): 115 Anesthesia Moderate Procedural Complication(s) None I attest to the content of the Intraoperative Record and any orders documented therein. Any exceptions are noted below.
[2019-05-22] MEDS ORDERED: SODIUM CHLORIDE 0.9% 1000ML 1,000 ML IV SCH (11:15)
--- NOTE | 2019-05-30 11:12 | Discharge Summary ---
Date of Service May 22, 2019 Admission HPI Per Admitting Provider The patient is 69 years old male who presented to the ER with the complaints of chest pain and shortness of breath. His symptoms started this afternoon. He rates his chest pain as 4 out of 10, describes it as chest tightness in the retrosternal area. Currently the patient is chest pain-free and feeling better. The patient recently stopped his Coumadin, in anticipation of colonoscopy on Wednesday. In the ER, he was started on IV heparin drip. His EKG shows left bundle branch block, appears to be new. He will be admitted under observation for further evaluation and management. He follows up with Dr. Coronado the senior sales associate. Principal Diagnosis chest pain Discharge Exam Constitutional: well developed and + obese; no acute distress Eyes: normal pupil size ENMT: external ear and nose normal, oropharynx normal Neck: trachea midline and + thick neck Respiratory: normal respiratory effort, lungs clear to auscultation Cardiovascular: Rate/Rhythm: + irregularly irregular Heart Sounds: no murmur Vessels: no JVD Gastrointestinal (Abdomen): normal bowel sounds, soft, nontender, no hepatosplenomegaly Musculoskeletal: no cyanosis or clubbing, extremities motor strength 5/5 Skin: no rashes, warm and dry Neurologic: moves all extremities and awake; + CN's not intact and no focal motor deficits Speech / Cognition: normal speech Motor/Sensory: no tremor, no pronator drift and no sensory deficit Psychiatric: A+Ox3, euthymic affect Discharge Data Allergies Allergy/AdvReac Type Severity Reaction Status Date / Time bee venom protein (honey bee) Allergy Severe CHOKING Verified 05/29/19 11:21 WITH GENERALIZED SWELLING procaine Allergy Unknown ANAPHYLAXIS Verified 05/29/19 11:21 strawberry Allergy Unknown HIVES WITH Verified 05/29/19 11:21 ALOT metformin AdvReac Unknown Nausea Verified 05/29/19 11:21 omeprazole AdvReac Unknown DIARRHEA Verified 05/29/19 11:21 GI UPSET hepatitis A virus vaccine AdvReac Verified 05/29/19 11:21 [From [facility]] hepatitis B virus vaccine, AdvReac Verified 05/29/19 11:21 recombin [From [employer]] Consultations 05/20/19 19:12 Consult Cardiology Routine Procedures Performed Operation Date: 05/22/19 08:00 Actual Procedures p Cath, Left w/Cors Vent Grafts - Sunny Chery MD s Cineradiography w/Routine Exam - Sunny Chery MD Ordered Studies 05/22/19 08:56 CL Cath Imgs for PACS use only Routine Hospital Course (1) Hot flash in male: Denies chest pain. More of a heat in his chest radiating to both shoulders while bending over and back up on during his achalasia episode. 30 second episode. This is more consistent with reflux probably from food stuck in esophagus from spastic achalasia although difficult to definitively say not cardiac. During hospital stay, Patient had cardiac cath: Summary: 1. CORREA to LAD patent with diffuse 70% disease in small distal LAD after an astomosis 2. SVG to distal RCA/PDA with 60 to 70% mid graft disease. 3. SVG to OM occluded 4. Severe chronic multivessel [place] coronary artery disease -100% proximal LAD 80% earlymid RCA, 60 to 70% distal RCA, 95% right posterior AV branch Recommendations: No high risk, critical lesions identified. Recommend medical management with optimization of antianginal therapy/guideline directed medical therapy for cardiomyopathy. If refractory symptoms in the future could consider PCI to vein graft to RCA/PDA or intervention to small LAD via CORREA. Patient will be discharged on a NOAC as noted in discharge instructions (2) Shortness of breath on exertion: Episode occurred while walking in the mall with associated eye blurring. Possible hypotensive episode ?tachycardic episode although sounds more concerning for cardiac given associated shortness of breath on exertion. EKG - rate related LBBB. Agree this episode less able to relate to his spastic achalasia and cardiac catheterization is warranted. (3) New onset left bundle branch block (LBBB): as above (4) Esophageal achalasia: If recurrent episode recommend GI consult. (5) Atrial fibrillation, permanent: On NOAC Currently rate controlled. (6) Dyslipidemia: Continue atorvastatin (7) Ischemic cardiomyopathy: Continue BB + ARB. No current symptoms/signs of heart failure (8) HTN (hypertension): Continue BB + ARB (9) CAD (coronary artery disease): Continue ASA, BB, ARB, statin. Further anticoagulation depending on cath results. If no intervention recommend staying off warfarin so he can have his cardiac cath (10) Hx of CABG: Will follow chest pain protocol. Monitor EKG and cardiac enzymes per protocol. Consult cardiology. Patient was started on IV heparin drip in the ER. Continue the same. Continue home medications. Check echocardiogram. CODE STATUS full code (11) DVT prophylaxis: as noted above. (12) Discharge planning issues: At baseline physical health. No PT/OT ordered. Plan for discharge home pending cardiac workup outcome Total Time Total Time Spent Total Time Spent (In Minutes): 31 Total Time Includes: Examination of the Patient, Discharge Planning and Medication Reconciliation Discharge Plan Discharge Items Patient Disposition: Home - Self-Care Reason For Visit: CP Discharge Diagnosis: CP Activity: Resume your previous activity Non-emergency contact: Primary Care Provider Call non-emergency contact if: you have any medication questions Follow-up/Referrals: Sunny Turpin MD [Primary Care Provider] - 05/30/19 3:00 pm (Please, follow up at Dr. Turpin's office with his associate, Vianney Alexandra PA-C, on WednesdayMay 30 at 3:00 pm. *If you need to change this appointment, call their office at [phone].) Diet: Regular Addtl Attending Provider Instructions: Will recommend patient be placed on Eliquis. Will recommend followup with PCP within 10 days and cardiology in 3-4 weeks; The eliquis will cost $70.5 for 90 days through [employer] mail. The first month will be free with our coupon. Pending Studies at Discharge: No Stand-Alone Forms: My [facility] Medications and DC Order Prescriptions: Continued aspirin [Aspirin Low Dose] 81 mg Tablet,Delayed Release (Dr/Ec) 81 mg PO QAM Qty: 0 RF: 0 losartan 25 mg Tablet 25 mg PO QPM RF: 0 cholecalciferol (vitamin D3) [Vitamin D3] 2,000 unit Capsule 2,000 units PO QPM RF: 0 ranitidine HCl 150 mg capsule 150 mg PO DAILY RF: 0 Discontinued warfarin 5 mg Tablet 5 mg PO 4XWK RF: 0 warfarin 7.5 mg Tablet 7.5 mg PO 3XWK RF: 0 No Action triamcinolone acetonide 0.1 % cream 1 appln topical .COMPLEX Qty: 453.6 RF: 0 nitroglycerin [Nitrostat] 0.4 mg tablet, sublingual 0.4 mg Sublingual DIRECTED PRN (Reason: Chest Pain) Qty: 25 RF: 5 metoprolol succinate 50 mg tablet extended release 24 hr 50 mg PO BID Qty: 60 RF: 11 Eliquis 5 mg tablet 5 mg PO BID Qty: 60 RF: 5 atorvastatin 40 mg tablet 20 mg PO HS Qty: 45 RF: 3 Discharge Orders: Discharge Order (Routine); Ordered 05/22/19 Ordered By: Delta Garza Admission Data Admit Date/Time: 05/20/19 17:44 Attending Provider: Delta Garza Admit Provider: Gavino Jha Primary Care Provider: Sunny Turpin Other Providers: Sunny Chery Other Interventions: Discharge Summary Assessment (RN) Last Done: 05/22/19 15:52 DC Date/Time DO NOT enter until pt leaves facility: 05/22/19 17:02
== END 2019-05-22 17:02 | disposition home or self-care (01) ==
LOC: ED 15:08 → 2N 15:08 → SUATTDRO 17:44 → 2N 18:25 → 2S 05-22 11:27

== ENCOUNTER 2021-08-14 17:09 | Observation (INO) ==
[2021-08-14 17:59] LABS: Basophils # (auto) 0.02 K/uL (0-0.2); Basophils % (auto) 0.3 %; Eosinophils # (auto) 0.12 K/uL (0-0.5); Eosinophils % (auto) 1.9 %; Hematocrit (blood only) 41.8 % (42-52); Hemoglobin 13.7 g/dL (14.0-18.0); Immature Granulocytes # (auto) 0.01 K/uL (0.00-0.02); Immature Granulocytes % (auto) 0.2 %; Lymphocytes # (auto) 1.59 K/uL (1.2-3.4); Lymphocytes % (auto) 25.7 %; Mean Corpuscular Hemoglobin 28.2 pg (25-34); Mean Corpuscular Hgb Conc 32.8 g/dL (32-36); Mean Corpuscular Volume 86.2 fL (80-100); Mean Platelet Volume 10.2 fL (7.4-10.4); Monocytes # (auto) 0.55 K/uL (0.11-0.59); Monocytes % (auto) 8.9 %; Neutrophils # (auto) 3.89 K/uL (1.4-6.5); Platelet Count 274 K/uL (130-400); RDW Standard Deviation 43.4 fL (36.4-46.3); Red Blood Count 4.85 M/uL (4.7-6.1); White Blood Count 6.18 K/uL (4.8-10.8)
[2021-08-14] MEDS ORDERED: GLUCAGON 0.5 ML IV ONE (18:31)
--- NOTE | 2021-08-14 18:36 | Emergency Department Note ---
Impression & Plan Food impaction of esophagus, Chronic atrial fibrillation ED Provider Note Provider: Jorje Gramajo MD DATE OF SERVICE: 08/14/2021 CHIEF COMPLAINT: Food stuck HISTORY OF PRESENT ILLNESS: Patient is a 71-year-old gentleman history of CAD with atrial fibrillation on Eliquis, diverticulitis, hypertension, prediabetes, and achalasia presenting here today complaining of sensation of food stuck in his upper throat. Patient states he was having some hymns, potatoes approximately 48 hours ago for dinner. Chewed well and ate it. Patient states that since then it felt like something was stuck there. He is try to eat any solid foods but he feels like these get stuck and he just been vomiting them back up. States he has been able to take some small sips of liquid but no substantial large amount of liquids at 1 time. Has tried to take his medications but is unsure if they are actually getting to his stomach. Denies significant chest pain or shortness of breath. Again describes a fullness sensation at the very base of the throat region. Patient states he feels very hungry. States in the past he has had this happen in the past but usually goes away after a day or so. Talked with his doctor today who referred him here. History 3 years ago he reports at [place] of having an endoscopy done there to try to release his esophageal sphincter that did not seem to help. States he does have an endoscopy clip in his throat. Patient states he has tried jumping up and down to see if this dislodge anything. Patient denies any difficulty breathing. REVIEW OF SYSTEMS: A total of 10 review of systems was obtained and negative except as stated above in the HPI. PAST MEDICAL HISTORY: As noted above MEDICATIONS: Reviewed home medications SOCIAL HISTORY: Non-smoker PHYSICAL EXAM: GENERAL: alert and oriented in no acute distress on stretcher Head: normocephalic and atraumatic EYES: No injection, discharge or icterus. NECK: Trachea midline. Supple. ENT: Mucous membranes pink and moist. Pharynx without erythema or exudate. LUNGS: Airway patent. No retractions. Breath sounds clear with good air entry bilaterally. HEART: Regular rate and rhythm. No chest wall tenderness ABDOMEN: Soft and non-tender, without guarding or rebound. SKIN: Acyanotic, warm, dry, without rashes EXTREMITIES: Without swelling, tenderness or deformity NEUROLOGICAL: No focal deficits. No aphasia. No facial droop or slurred speech. Ambulatory. EK bpm atrial fibrillation occasional PVC with left axis and a left bundle branch block. QTc 530. CONTINUOUS CARDIAC MONITORING: was ordered and showed a heart rate of 60s-70s bpm in atrial fibrillation occasional PVCs Patient's laboratory studies and imaging reviewed. Differential includes food impaction, esophageal spasm, throat foreign body, retained globus sensation, dehydration among others. IMPRESSION/MEDICAL DECISION MAKING: Patient with history of achalasia now some sensation of food getting stuck and unable to eat food. Minimal amounts of fluids are passing. Does not seem consistent with aspiration. Patient's well-appearing and I doubt any Boerhaave's or esophageal perforation. Chest x-ray & basic labs obtained. C OVID test sent. These test are reassuring. Give a small glucagon to see if this would affect any change. Has tried jumping and vomiting prior to arrival without improvement. No improvement with glucagon here. Able to sip some water but does not feel that it is going down. Discussed with gastroenterology welcome wagon hostess Dr. Nunez. He recommended given the patient's history and presentation that we observe the patient overnight and have the daylight GI team evaluate in the morning for endoscopy. Discussed with the patient. Hospitalist consulted. DIAGNOSIS: Food impaction, atrial fib DISPOSITION: Hospitalist will evaluate Patient was agreeable with this plan. Past Med/Surg History Medical History Actinic keratosis Adenomatous polyp of colon Atrial fibrillation CAD (coronary artery disease) CABG 3 VESSELS - [facility] [place]-distant history mi Chronic atrial fibrillation Claustrophobia Colon polyp Coronary artery arteriosclerosis Diabetes mellitus, type 2 BORDERLINE-NO MEDS Diverticular disease HX Diverticulitis Diverticulitis of colon Dyslipidemia Dysphagia Erectile dysfunction GERD (gastroesophageal reflux disease) Gout Hiatal hernia HLD (hyperlipidemia) HTN (hypertension) Hyperthyroidism Ischemic cardiomyopathy Left ventricular aneurysm Leukopenia Lymphadenopathy Migraine Myocardial infarction 1987-CARDIAC CATH NO STENTS DARRYN (obstructive sleep apnea) MOUTHPIECE HS Osteoarthritis Osteopenia Past myocardial infarction Pre-diabetes Restrictive lung disease Rising PSA remaining within normal limits Skin tags, multiple acquired Snoring Syncope Temporomandibular joint disorder CLICKS BILAT SIDES HAS NEVER LOCKED Ventricular tachycardia Vitamin D deficiency Witnessed apneic spells Surgical History Esophageal achalasia SURGERY TO REPAIR-METAL CLIP PRESENT IN AREA H/O sinus surgery Hx of CABG 3 VESSELS [facility] REPAIR Family History Father , Mother of ovarian cancer at the age of 68. She also had diabetes. Father of an GA at the age of 71. Hypertension Myocardial infarction Cardiovascular disease Coronary heart disease Mother Family history of diabetes mellitus Uterine cancer Colorectal cancer Ovarian cancer Son Hypertension Diabetes Denies family history of Prostate cancer Breast cancer Social History Smoking Status: Never smoker Tobacco Type: Cigarettes Age Started Using Tobacco: 22; Age Quit Using Tobacco: 43; packs per day: 1.5; Years Smoked: 21; Cigarettes Per Day: 30; Number of Years Since Quit: 27; Second Hand Exposure: No; Hx Alcohol Use: Yes Alcohol type: beer Alcohol Intake Frequency Comment: rarely Hx Substance Use: No Preferred Language: Azeri Communication Ability: Effective Visual Impairment: No Limitations Hearing Ability: Use of Hearing Aid Real Estate Valuer Required: No Beliefs That Will Affect Care: None marital status: Current Living Situation: Significant Other current occupational status: retired Feels Safe at Home: Yes Childhood Exposure to Second-Hand Smoke: Yes Diet Comment: healthy diet caffeine: Yes Dental Care, Regularly: Yes Physical Activity Frequency: Does not Exercise Seatbelt Use: always Sunscreen Use: Yes Assistive Devices: None Allergies Allergies Allergy/AdvReac Type Severity Reaction Status Date / Time bee venom protein (honey bee) Allergy Severe CHOKING Verified 08/14/21 18:15 WITH GENERALIZED SWELLING perflutren [From Definity] Allergy Mild Muscle Verified 08/14/21 18:15 aches/pain procaine Allergy Unknown ANAPHYLAXIS Verified 08/14/21 18:15 strawberry Allergy Unknown HIVES WITH Verified 08/14/21 18:15 ALOT metformin AdvReac Unknown Nausea Verified 08/14/21 18:15 omeprazole AdvReac Unknown DIARRHEA Verified 08/14/21 18:15 GI UPSET hepatitis A virus vaccine AdvReac Unknown Verified 08/14/21 18:15 [From Twinrix] hepatitis B virus vaccine, AdvReac Unknown Verified 08/14/21 18:15 recombin [From Twinrix] Home Meds Home Medications Medication Instructions Recorded Confirmed aspirin 81 mg tablet,delayed 81 mg PO QAM #0 09/20/14 08/14/21 release (Aspirin Low Dose) cholecalciferol (vitamin D3) 50 2,000 units PO QPM 08/23/18 08/14/21 mcg (2,000 unit) capsule (Vitamin D3) ascorbic acid (vitamin C) 500 mg 500 mg PO Q OTHER DAY tab 03/21/20 08/14/21 tablet dnmbunvu-zwl-lokug acid 300 1 tab PO Q OTHER DAY tab 03/21/20 08/14/21 mcg-lycopene 600 mcg-lutein 300 mcg tablet (Centrum Silver Men) Previous Rx's Medication Instructions Recorded nitroglycerin 0.4 mg sublingual 0.4 mg SUBLINGUAL DIRECTED PRN 03/21/20 tablet (Nitrostat) #25 tab apixaban 5 mg tablet (Eliquis) 5 mg PO BID #180 tab 11/11/20 albuterol sulfate 90 mcg/actuation 1 inh INHALATION QID PRN #18 g 01/27/21 aerosol inhaler losartan 25 mg tablet 25 mg PO BID #180 tab 04/10/21 metoprolol succinate 100 mg 100 mg PO BID #60 tab 07/11/21 tablet,extended release 24 hr triamcinolone acetonide 0.5 % See Rx Instructions TOPICAL TID 07/11/21 topical cream PRN #15 g atorvastatin 40 mg tablet 20 mg PO HS #45 tab 08/05/21 Results & Data (ED) Vital Signs Vital Signs - 24 hr 08/14/21 17:22 08/14/21 19:09 08/14/21 21:00 Temperature 36.6 C Temperature Source Skin Pulse Rate 75 Pulse Rate [Apical] 65 69 Respiratory Rate 18 14 16 Respiratory Effort / Characteristics Non-Labored Non-Labored Respiratory Depth Blood Pressure 142/84 H Blood Pressure [Left Arm] 145/86 H 134/86 Blood Pressure Mean 103 Blood Pressure Mean [Left Arm] 105 102 Pulse Oximetry 97 97 96 Oxygen Delivery Method Room Air Room Air Room Air Sepsis Recent Fever Within 48 Hours No Sepsis New/Unexplained Change in Mental Status No Sepsis Action Taken by Nursing No Action Required 08/15/21 01:00 Temperature Temperature Source Pulse Rate Pulse Rate [Apical] 69 Respiratory Rate 16 Respiratory Effort / Characteristics Non-Labored Spontaneous Respiratory Depth Normal Blood Pressure Blood Pressure [Left Arm] 126/81 Blood Pressure Mean Blood Pressure Mean [Left Arm] 96 Pulse Oximetry 96 Oxygen Delivery Method Room Air Sepsis Recent Fever Within 48 Hours Sepsis New/Unexplained Change in Mental Status Sepsis Action Taken by Nursing Laboratory Data Result diagrams: 08/14/21 17:50 08/14/21 19:20 Lab Results 08/14/21 08/14/21 08/14/21 Range/Units 17:50 17:50 17:50 WBC 6.18 (4.8-10.8) K/uL RBC 4.85 (4.7-6.1) M/uL Hgb 13.7 L (14.0-18.0) g/dL Hct 41.8 L (42-52) % MCV 86.2 (80-100) fL MCH 28.2 (25-34) pg MCHC 32.8 (32-36) g/dL RDW Std Deviation 43.4 (36.4-46.3) fL RDW Coeff of Vi 14.0 (11.5-14.5) % Plt Count 274 (130-400) K/uL MPV 10.2 (7.4-10.4) fL Immature Gran % (Auto) 0.2 % Neut % (Auto) 63.0 % Lymph % (Auto) 25.7 % Ray % (Auto) 8.9 % Eos % (Auto) 1.9 % Baso % (Auto) 0.3 % Neut # (Auto) 3.89 (1.4-6.5) K/uL Lymph # (Auto) 1.59 (1.2-3.4) K/uL Ray # (Auto) 0.55 (0.11-0.59) K/uL Eos # (Auto) 0.12 (0-0.5) K/uL Baso # (Auto) 0.02 (0-0.2) K/uL Immature Gran # (Auto) 0.01 (0.00-0.02) K/uL PT 12.2 H (9.0-12.0) Seconds INR 1.2 H (0.9-1.1) Sodium Cancelled Potassium Cancelled Chloride Cancelled Carbon Dioxide Cancelled Anion Gap Cancelled BUN Cancelled Creatinine Cancelled Est Cr Clr Drug Dosing Cancelled Est GFR ( Amer) Cancelled Est GFR (Non-Af Amer) Cancelled BUN/Creatinine Ratio Cancelled Glucose Cancelled POC Glucose (70-99) mg/dl Calcium Cancelled Total Bilirubin Cancelled AST Cancelled ALT Cancelled Alkaline Phosphatase Cancelled Troponin I Total Protein Cancelled Albumin Cancelled Globulin Cancelled Albumin/Globulin Ratio Cancelled SARS-CoV-2, RNA, NAAT (NEGATIVE) 08/14/21 08/14/21 08/14/21 Range/Units 17:50 18:50 19:20 WBC (4.8-10.8) K/uL RBC (4.7-6.1) M/uL Hgb (14.0-18.0) g/dL Hct (42-52) % MCV (80-100) fL MCH (25-34) pg MCHC (32-36) g/dL RDW Std Deviation (36.4-46.3) fL RDW Coeff of Vi (11.5-14.5) % Plt Count (130-400) K/uL MPV (7.4-10.4) fL Immature Gran % (Auto) % Neut % (Auto) % Lymph % (Auto) % Ray % (Auto) % Eos % (Auto) % Baso % (Auto) % Neut # (Auto) (1.4-6.5) K/uL Lymph # (Auto) (1.2-3.4) K/uL Ray # (Auto) (0.11-0.59) K/uL Eos # (Auto) (0-0.5) K/uL Baso # (Auto) (0-0.2) K/uL Immature Gran # (Auto) (0.00-0.02) K/uL PT (9.0-12.0) Seconds INR (0.9-1.1) Sodium 137 Potassium 4.1 Chloride 104 Carbon Dioxide 25 Anion Gap 8 BUN 19 Creatinine 0.99 Est Cr Clr Drug Dosing 84.6 Est GFR ( Amer) 88.4 Est GFR (Non-Af Amer) 76.3 BUN/Creatinine Ratio 19.2 Glucose 104 H POC Glucose (70-99) mg/dl Calcium 9.3 Total Bilirubin 2.4 H AST 34 ALT 21 Alkaline Phosphatase 67 Troponin I Cancelled < 0.03 Total Protein 7.9 Albumin 4.6 Globulin 3.3 Albumin/Globulin Ratio 1.4 SARS-CoV-2, RNA, NAAT NEGATIVE (NEGATIVE) 08/14/21 Range/Units 22:40 WBC (4.8-10.8) K/uL RBC (4.7-6.1) M/uL Hgb (14.0-18.0) g/dL Hct (42-52) % MCV (80-100) fL MCH (25-34) pg MCHC (32-36) g/dL RDW Std Deviation (36.4-46.3) fL RDW Coeff of Vi (11.5-14.5) % Plt Count (130-400) K/uL MPV (7.4-10.4) fL Immature Gran % (Auto) % Neut % (Auto) % Lymph % (Auto) % Ray % (Auto) % Eos % (Auto) % Baso % (Auto) % Neut # (Auto) (1.4-6.5) K/uL Lymph # (Auto) (1.2-3.4) K/uL Ray # (Auto) (0.11-0.59) K/uL Eos # (Auto) (0-0.5) K/uL Baso # (Auto) (0-0.2) K/uL Immature Gran # (Auto) (0.00-0.02) K/uL PT (9.0-12.0) Seconds INR (0.9-1.1) Sodium Potassium Chloride Carbon Dioxide Anion Gap BUN Creatinine Est Cr Clr Drug Dosing Est GFR ( Amer) Est GFR (Non-Af Amer) BUN/Creatinine Ratio Glucose POC Glucose 80 (70-99) mg/dl Calcium Total Bilirubin AST ALT Alkaline Phosphatase Troponin I Total Protein Albumin Globulin Albumin/Globulin Ratio SARS-CoV-2, RNA, NAAT (NEGATIVE) Administered Medications Lactated Ringer's (Lr) 1,000 mls @ 80 mls/hr IV .[id number] Stop: 09/13/21 20:29 Last Admin: 08/14/21 20:40 Dose: 80 mls/hr Documented by: [id number] Pantoprazole Sodium 40 mg/ (Syringe) 10 mls @ 5 mls/min IV BID GUMARO Stop: 09/13/21 23:29 Last Admin: 08/14/21 23:41 Dose: 5 mls/min Documented by: [id number] Discontinued Medications Glucagon (Glucagen) 0.5 mls @ 0.5 mls/min IV ONE ONE Stop: 08/14/21 18:32 Last Admin: 08/14/21 19:08 Dose: 0.5 mls/min Documented by: [id number] Imaging Data Radiologist's Impression: Chest X-Ray 08/14/21 18:31 SINGLE VIEW CHEST CLINICAL HISTORY: Dysphagia. Sensation of retained food bolus. FINDINGS: An AP, portable, upright chest radiograph is compared to study dated 09/08/2020. The examination is degraded by portable technique and apical lordotic positioning. The patient is status post midline sternotomy. The heart is enlarged. The pulmonary vasculature is noncongested. Scarring/atelectasis is noted at the lung bases. The lungs and pleural spaces are otherwise clear. No pneumothorax is seen. The skeletal structures are osteopenic. The bony thorax is grossly intact. IMPRESSION: Cardiomegaly with no acute cardiopulmonary abnormality. ACT 112: Negative or not required by law. Electronically signed by: Jamil Serrano M.D. 08/14/2021 7:16 PM Discharge Plan Visit Data Chief Complaint: Food Bolus Stated Complaint: REFERRED, FOOD STUCK IN THROAT ED Provider: Jorje Gramajo Discharge Problem: Food impaction of esophagus, Chronic atrial fibrillation Patient Disposition: Being Evaluated by Hospitalist Forms Stand Alone Forms: [facility] Prescriptions Prescriptions: No Action aspirin [Aspirin Low Dose] 81 mg Tablet,Delayed Release (Dr/Ec) 81 mg PO QAM Qty: 0 RF: 0 Eliquis 5 mg tablet 5 mg PO BID Qty: 180 RF: 3 losartan 25 mg tablet 25 mg PO BID Qty: 180 RF: 3 atorvastatin 40 mg tablet 20 mg PO HS Qty: 45 RF: 3 ascorbic acid (vitamin C) 500 mg tablet 500 mg PO Q OTHER DAY RF: 0 nitroglycerin [Nitrostat] 0.4 mg tablet, sublingual 0.4 mg Sublingual DIRECTED PRN (Reason: Chest Pain) Qty: 25 RF: 5 triamcinolone acetonide 0.5 % cream See Rx Instructions topical TID PRN (Reason: itching) Qty: 15 RF: 1 metoprolol succinate 100 mg tablet extended release 24 hr 100 mg PO BID Qty: 60 RF: 3 albuterol sulfate 90 mcg/actuation HFA aerosol inhaler 1 inh inhalation QID PRN (Reason: shortness of breath or wheezing) Qty: 18 RF: 1 Centrum Silver Men 300-600-300 mcg tablet 1 tab PO Q OTHER DAY RF: 0 cholecalciferol (vitamin D3) [Vitamin D3] 2,000 unit Capsule 2,000 units PO QPM RF: 0 Referrals Referrals: Ankit Turpin MD [Primary Care Provider] -
[2021-08-14 18:46] LABS: INR 1.2 (0.9-1.1); Prothrombin Time 12.2 Seconds (9.0-12.0)
--- NOTE | 2021-08-14 19:18 | XRay Report ---
SINGLE VIEW CHEST CLINICAL HISTORY: Dysphagia. Sensation of retained food bolus. FINDINGS: An AP, portable, upright chest radiograph is compared to study dated 07/08/2021. The examina tion is degraded by portable technique and apical lordotic positioning. The patient is status post mi dline sternotomy. The heart is enlarged. The pulmonary vasculature is noncongested. Scarring/atelecta sis is noted at the lung bases. The lungs and pleural spaces are otherwise clear. No pneumothorax is seen. The skeletal structures are osteopenic. The bony thorax is grossly intact. IMPRESSION: Cardiomegaly with no acute cardiopulmonary abnormality. ACT 112: Negative or not required by law. Electronically signed by: Jamil Serrano M.D. 08/14/2021 7:16 PM
[2021-08-14 19:54] LABS: Alanine Aminotransferase 21 U/L (7-52); Albumin Globulin Ratio 1.4 (0.9-2); Albumin Level 4.6 gm/dl (3.4-5.0); Alkaline Phosphatase 67 U/L (34-104); Anion Gap 8 (3-11); Aspartate Aminotransferase 34 U/L (13-39); BUN Creatinine Ratio 19.2 (10-20); Bilirubin,Total 2.4 mg/dl (0.2-1.0); Blood Urea Nitrogen 19 mg/dl (6-23); Calcium 9.3 mg/dl (8.5-10.1); Carbon Dioxide 25 mmol/L (21-32); Chloride 104 mmol/L (98-107); Creatinine Clr Calc Pharmacy 84.6 ml/min; Est GFR (African American) 88.4 ml/min; Est GFR (Non-African American) 76.3 ml/min; Globulin 3.3 gm/dl (2.5-4.0); Glucose 104 mg/dl (70-99); Potassium 4.1 mmol/L (3.5-5.1); Sodium 137 mmol/L (136-145); Total Protein 7.9 gm/dl (6.0-8.3); Troponin I < 0.03 ng/ml (0-0.04)
[2021-08-14] MEDS: LACTATED RINGER'S 1,000 ML IV SCH (20:40)
--- NOTE | 2021-08-14 22:03 | History & Physical Report ---
Date of Service August 14, 2021 Assessment & Plan (1) Globus sensation: Plan: Bjorn Lorenz is a 71y/o M w/ PMH significant for CAD s/p 3 vessel CABG, HTN, HLD, T2DM, Atrial fibrillation, and esophageal achalasia; who presents for concerns regarding 3 days of persistent globus sensation with inability to tolerate eating. Globus sensation: -Patient with significant history of esophageal achalasia requiring surgical correction in 2018 -Glucagon trial in ED unsuccessful -Tolerating small sips -Gastroenterology consulted: Potential for dilation in a.m. -N.p.o. with sips but no medications -Protonix IV twice daily - Atrial Fibrillation: -Holding home Eliquis and metoprolol overnight given globus sensation and fears regarding ability to swallow pills -Restart following procedure or clearance of globus sensation Coronary artery disease: -Holding losartan 25 mg BID, atorvastatin 20 mg HS, and metoprolol 100 mg BID T2DM: -History of however diet controlled over the last several years -Continue to monitor blood sugars daily Code Status: Full code DVT PPX: resume Eliquis post-procedure Diet: NPO with sips but no medications overnight in anticipation of esophageal dilation tomorrow (2) Esophageal achalasia: (3) Atrial fibrillation, permanent: (4) Diabetes type 2, controlled: (5) HTN (hypertension): (6) HLD (hyperlipidemia): (7) CAD (coronary artery disease): History of Present Illness Primary Care Provider: Ankit Turpin MD Bjorn Lorenz is a 71y/o M w/ PMH significant for CAD s/p 3 vessel CABG, HTN, HLD, T2DM, Atrial fibrillation, and esophageal achalasia; who presents for concerns regarding 3 days of persistent globus sensation with inability to tolerate eating. Patient notes that symptoms started Wednesday afternoon, following attemp camacho to eat a piece of meat. Ensures that he regularly certain and thoroughly chews his food before swallowing in order to prevent any concerns or blockages. Typically states that has no issues with meats or liquids following his mucosotomy in 2018. Has not had dilations or additional procedures since that time as his achalasia has been doing well. Since Wednesday he has had this persistently occur with all attempts to consume solids. Notes that really had not been having much symptoms with liquids up late Wednesday evening, this seemed to come and go and generally he has been able to tolerate swallowing liquids. But notes that he continues to feel like something is stuck in his upper throat. Has had no changes to his voice, no difficulty with breathing, no chest pain, endorses loose bowel movements over the last 12 hours, no abdominal pain, endorses cramping upon presentation to ED. Allergies Allergy/AdvReac Type Severity Reaction Status Date / Time bee venom protein (honey bee) Allergy Severe CHOKING Verified 08/14/21 18:15 WITH GENERALIZED SWELLING perflutren [From Definity] Allergy Mild Muscle Verified 08/14/21 18:15 aches/pain procaine Allergy Unknown ANAPHYLAXIS Verified 08/14/21 18:15 strawberry Allergy Unknown HIVES WITH Verified 08/14/21 18:15 ALOT metformin AdvReac Unknown Nausea Verified 08/14/21 18:15 omeprazole AdvReac Unknown DIARRHEA Verified 08/14/21 18:15 GI UPSET hepatitis A virus vaccine AdvReac Unknown Verified 08/14/21 18:15 [From Twinrix] hepatitis B virus vaccine, AdvReac Unknown Verified 08/14/21 18:15 recombin [From Twinrix] Home Medications Medication Instructions Recorded Confirmed Type aspirin 81 mg tablet,delayed 81 mg PO QAM #0 09/20/14 08/14/21 History release (Aspirin Low Dose) cholecalciferol (vitamin D3) 50 2,000 units PO QPM 08/23/18 08/14/21 History mcg (2,000 unit) capsule (Vitamin D3) ascorbic acid (vitamin C) 500 mg 500 mg PO Q OTHER DAY tab 03/21/20 08/14/21 History tablet upwshemc-ixn-mxxlx acid 300 1 tab PO Q OTHER DAY tab 03/21/20 08/14/21 History mcg-lycopene 600 mcg-lutein 300 mcg tablet (Centrum Silver Men) nitroglycerin 0.4 mg sublingual 0.4 mg SUBLINGUAL DIRECTED PRN 03/21/20 08/14/21 Rx tablet (Nitrostat) #25 tab apixaban 5 mg tablet (Eliquis) 5 mg PO BID #180 tab 11/11/20 08/14/21 Rx albuterol sulfate 90 mcg/actuation 1 inh INHALATION QID PRN #18 g 06/28/21 01/13/22 Rx aerosol inhaler losartan 25 mg tablet 25 mg PO BID #180 tab 04/10/21 08/14/21 Rx metoprolol succinate 100 mg 100 mg PO BID #60 tab 07/11/21 08/14/21 Rx tablet,extended release 24 hr triamcinolone acetonide 0.5 % See Rx Instructions TOPICAL TID 07/11/21 08/14/21 Rx topical cream PRN #15 g atorvastatin 40 mg tablet 20 mg PO HS #45 tab 08/05/21 08/14/21 Rx Past Med/Surg History Medical History Actinic keratosis Adenomatous polyp of colon Atrial fibrillation CAD (coronary artery disease) CABG 3 VESSELS - [facility]-distant history mi Chronic atrial fibrillation Claustrophobia Colon polyp Coronary artery arteriosclerosis Diabetes mellitus, type 2 BORDERLINE-NO MEDS Diverticular disease HX Diverticulitis Diverticulitis of colon Dyslipidemia Dysphagia Erectile dysfunction GERD (gastroesophageal reflux disease) Gout Hiatal hernia HLD (hyperlipidemia) HTN (hypertension) Hyperthyroidism Ischemic cardiomyopathy Left ventricular aneurysm Leukopenia Lymphadenopathy Migraine Myocardial infarction 1987-CARDIAC CATH NO STENTS DARRYN (obstructive sleep apnea) MOUTHPIECE HS Osteoarthritis Osteopenia Past myocardial infarction Pre-diabetes Restrictive lung disease Rising PSA remaining within normal limits Skin tags, multiple acquired Snoring Syncope Temporomandibular joint disorder CLICKS BILAT SIDES HAS NEVER LOCKED Ventricular tachycardia Vitamin D deficiency Witnessed apneic spells Surgical History Esophageal achalasia SURGERY TO REPAIR-METAL CLIP PRESENT IN AREA H/O sinus surgery Hx of CABG 3 VESSELS [facility] REPAIR Family History Father , Mother of ovarian cancer at the age of 68. She also had diabetes. Father of an [place] at the age of 71. Hypertension Myocardial infarction Cardiovascular disease Coronary heart disease Mother Family history of diabetes mellitus Uterine cancer Colorectal cancer Ovarian cancer Son Hypertension Diabetes Denies family history of Prostate cancer Breast cancer Social History Smoking Status: Never smoker Tobacco Type: Cigarettes Age Started Using Tobacco: 22; Age Quit Using Tobacco: 43; packs per day: 1.5; Years Smoked: 21; Cigarettes Per Day: 30; Number of Years Since Quit: 27; Second Hand Exposure: No; Hx Alcohol Use: Yes Alcohol type: beer Alcohol Intake Frequency Comment: rarely Hx Substance Use: No Preferred Language: Lao Communication Ability: Effective Visual Impairment: No Limitations Hearing Ability: Use of Hearing Aid Manager Bank Required: No Beliefs That Will Affect Care: None marital status: Current Living Situation: Significant Other current occupational status: retired Feels Safe at Home: Yes Childhood Exposure to Second-Hand Smoke: Yes Diet Comment: healthy diet caffeine: Yes Dental Care, Regularly: Yes Physical Activity Frequency: Does not Exercise Seatbelt Use: always Sunscreen Use: Yes Assistive Devices: None Review of Systems Review of Systems: All systems reviewed & are unremarkable except as noted in HPI & below Physical Exam Constitutional: WD/WN, vitals as above Eyes: PERRL, conjunctivae normal, anicteric sclerae Respiratory: normal respiratory effort, lungs clear to auscultation Auscultation: no crackles, no rales, no rhonchi and no wheezes Cardiovascular: Rate/Rhythm: regular rate and regular rhythm Heart Sounds: no gallop, no murmur and no cardiac rub Vessels: normal peripheral pulses; no JVD Extremities: no edema Gastrointestinal (Abdomen): Inspection/Auscultation: normal bowel sounds; abdomen not distended Percussion/Palpation: abdomen soft; abdomen nontender and no guarding Musculoskeletal: no cyanosis or clubbing, extremities motor strength 5/5 Skin: no rashes, warm and dry Neurologic: PERRL, EOMI, accommodation nl, no face palsy, no dysarthria CN's II-XI intact bilaterally and moves all extremities Psychiatric: Orientation: alert and oriented x 3 Results & Data Results & Data ([facility]) Vital Signs (Past 12 Hours) Vital Signs Temp Pulse Pulse Resp BP BP Pulse Ox 08/14/21 21:00 69 16 134/86 96 08/14/21 19:09 65 14 145/86 H 97 08/14/21 17:22 36.6 C 75 18 142/84 H 97 Laboratory Results 08/14/21 08/14/21 08/14/21 Range/Units 19:20 18:50 17:50 WBC (4.8-10.8) K/uL RBC (4.7-6.1) M/uL Hgb (14.0-18.0) g/dL Hct (42-52) % MCV (80-100) fL MCH (25-34) pg MCHC (32-36) g/dL RDW Std Deviation (36.4-46.3) fL RDW Coeff of Vi (11.5-14.5) % Plt Count (130-400) K/uL MPV (7.4-10.4) fL Immature Gran % (Auto) % Neut % (Auto) % Lymph % (Auto) % [place]mer[place]da % (Auto) % Eos % (Auto) % Baso % (Auto) % Neut # (Auto) (1.4-6.5) K/uL Lymph # (Auto) (1.2-3.4) K/uL [place]da # (Auto) (0.11-0.59) K/uL Eos # (Auto) (0-0.5) K/uL Baso # (Auto) (0-0.2) K/uL Immature Gran # (Auto) (0.00-0.02) K/uL PT (9.0-12.0) Seconds INR (0.9-1.1) Sodium 137 Potassium 4.1 Chloride 104 Carbon Dioxide 25 Anion Gap 8 BUN 19 Creatinine 0.99 Est Cr Clr Drug Dosing 84.6 Est GFR ( Amer) 88.4 Est GFR (Non-Af Amer) 76.3 BUN/Creatinine Ratio 19.2 Glucose 104 H Calcium 9.3 Total Bilirubin 2.4 H AST 34 ALT 21 Alkaline Phosphatase 67 Troponin I < 0.03 Cancelled Total Protein 7.9 Albumin 4.6 Globulin 3.3 Albumin/Globulin Ratio 1.4 SARS-CoV-2, RNA, NAAT NEGATIVE (NEGATIVE) 08/14/21 08/14/21 08/14/21 Range/Units 17:50 17:50 17:50 WBC 6.18 (4.8-10.8) K/uL RBC 4.85 (4.7-6.1) M/uL Hgb 13.7 L (14.0-18.0) g/dL Hct 41.8 L (42-52) % MCV 86.2 (80-100) fL MCH 28.2 (25-34) pg MCHC 32.8 (32-36) g/dL RDW Std Deviation 43.4 (36.4-46.3) fL RDW Coeff of Vi 14.0 (11.5-14.5) % Plt Count 274 (130-400) K/uL MPV 10.2 (7.4-10.4) fL Immature Gran % (Auto) 0.2 % Neut % (Auto) 63.0 % Lymph % (Auto) 25.7 % Esmeralda % (Auto) 8.9 % Eos % (Auto) 1.9 % Baso % (Auto) 0.3 % Neut # (Auto) 3.89 (1.4-6.5) K/uL Lymph # (Auto) 1.59 (1.2-3.4) K/uL Esmeralda # (Auto) 0.55 (0.11-0.59) K/uL Eos # (Auto) 0.12 (0-0.5) K/uL Baso # (Auto) 0.02 (0-0.2) K/uL Immature Gran # (Auto) 0.01 (0.00-0.02) K/uL PT 12.2 H (9.0-12.0) Seconds INR 1.2 H (0.9-1.1) Sodium Cancelled Potassium Cancelled Chloride Cancelled Carbon Dioxide Cancelled Anion Gap Cancelled BUN Cancelled Creatinine Cancelled Est Cr Clr Drug Dosing Cancelled Est GFR ( Amer) Cancelled Est GFR (Non-Af Amer) Cancelled BUN/Creatinine Ratio Cancelled Glucose Cancelled Calcium Cancelled Total Bilirubin Cancelled AST Cancelled ALT Cancelled Alkaline Phosphatase Cancelled Troponin I Total Protein Cancelled Albumin Cancelled Globulin Cancelled Albumin/Globulin Ratio Cancelled SARS-CoV-2, RNA, NAAT (NEGATIVE) Diagnostic Findings Impressions Chest X-Ray 08/14/21 18:31 SINGLE VIEW CHEST CLINICAL HISTORY: Dysphagia. Sensation of retained food bolus. FINDINGS: An AP, portable, upright chest radiograph is compared to study dated 07/08/2021. The examination is degraded by portable technique and apical lordotic positioning. The patient is status post midline sternotomy. The heart is enlarged. The pulmonary vasculature is noncongested. Scarring/atelectasis is noted at the lung bases. The lungs and pleural spaces are otherwise clear. No pneumothorax is seen. The skeletal structures are osteopenic. The bony thorax is grossly intact. IMPRESSION: Cardiomegaly with no acute cardiopulmonary abnormality. ACT 112: Negative or not required by law. Electronically signed by: Jamil Serrano M.D. 08/14/2021 7:16 PM Medications Administered Home Medication List Medication Instructions Recorded aspirin 81 mg tablet,delayed 81 mg PO QAM #0 09/20/14 release (Aspirin Low Dose) cholecalciferol (vitamin D3) 50 2,000 units PO QPM 08/23/18 mcg (2,000 unit) capsule (Vitamin D3) ascorbic acid (vitamin C) 500 mg 500 mg PO Q OTHER DAY tab 03/21/20 tablet prlwanwm-dov-wnjut acid 300 1 tab PO Q OTHER DAY tab 03/21/20 mcg-lycopene 600 mcg-lutein 300 mcg tablet (Centrum Silver Men) nitroglycerin 0.4 mg sublingual 0.4 mg SUBLINGUAL DIRECTED PRN 03/21/20 tablet (Nitrostat) #25 tab apixaban 5 mg tablet (Eliquis) 5 mg PO BID #180 tab 11/11/20 albuterol sulfate 90 mcg/actuation 1 inh INHALATION QID PRN #18 g 01/27/21 aerosol inhaler losartan 25 mg tablet 25 mg PO BID #180 tab 04/10/21 metoprolol succinate 100 mg 100 mg PO BID #60 tab 07/11/21 tablet,extended release 24 hr triamcinolone acetonide 0.5 % See Rx Instructions TOPICAL TID 07/11/21 topical cream PRN #15 g atorvastatin 40 mg tablet 20 mg PO HS #45 tab 08/05/21 Supervising Physician Co-Signing Physician Notes Patient seen and examined, chart reviewed, case discussed with Dr. Cazares and I agree with the plan as discussed. Patient is a 71yo male with history of CAD/AF on Eliquis, Diverticulitis, HTN and achalasia (Spastic achalasia Type III per esophageal motility study 03/24/19) presenting with globus sensation ongoing for the last two days. He is unable to swallow solids but is able to tolerate small amounts of liquids. Patient had EGD with mucosotomy on 06/06/18 Patient given Glucagon in ER with no improvement GI contacted - plan for EGD in AM Patient additionally complaining of some mild abdominal discomfort No additional complaints at this time On exam he is afebrile, HD stable, NAD. Resting comfortably in supine position Skin - warm, dry, no rashes HEENT - NC/AT, PERRL, MMM, Neck supple Heart - +S1/S2, regular, no m/r/g Lungs - CTA Abd - +BS, soft, tender in epigastric region as well as LLQ without rebound/guarding or peritoneal signs Ext - No edema Labs and images reviewed. Normochromic/normocytic anemia with Hgb=13.7, Hct=41.8 Tbili=2.4 Assessment/Plan - NPO IV protonix BID GI consultation appreciated - plan for EGD in AM Repeat LFTs to monitor Tbili - patient has had high Tbili in the past Resident Activity Tracking Resident Involvement: Resident Care Provided Care Provided: Adult Hospital Medicine (1) CAD (coronary artery disease) Associated angina: angina presence unspecified Coronary Disease-Associated Artery/Lesion type: [place] artery [place] vs. transplanted heart: [place] heart Qualified Code(s): I25.10 - Atherosclerotic heart disease of [place] coronary artery without angina pectoris (2) HTN (hypertension) Hypertension type: essential hypertension Qualified Code(s): I10 - Essential (primary) hypertension : Food impaction of esophagus Qualifiers: Encounter type: initial encounter Qualified Code(s): T18.128A - Food in esophagus causing other injury, initial encounter
[2021-08-14] MEDS: PANTOprazole 40 MG in SYRINGE 0 ML IV SCH (23:41)
[2021-08-15] MEDS ORDERED: ONDANSETRON INJ 2 MG/ML 2 ML VIAL IV PRN ×2 (01:20→15:20)
[2021-08-15] MEDS ORDERED: MoRPHine SULFATE 2 MG/ML CARP IV PRN (01:20)
[2021-08-15] MEDS ORDERED: NITROGLYCERIN SL 0.4 MG/TAB TAB SL PRN (01:20)
[2021-08-15 04:14] LABS: Basophils # (auto) 0.03 K/uL (0-0.2); Basophils % (auto) 0.5 %; Eosinophils # (auto) 0.16 K/uL (0-0.5); Eosinophils % (auto) 2.8 %; Hematocrit (blood only) 37.1 % (42-52); Hemoglobin 11.7 g/dL (14.0-18.0); Immature Granulocytes # (auto) 0.01 K/uL (0.00-0.02); Immature Granulocytes % (auto) 0.2 %; Lymphocytes # (auto) 1.74 K/uL (1.2-3.4); Lymphocytes % (auto) 29.9 %; Mean Corpuscular Hemoglobin 27.4 pg (25-34); Mean Corpuscular Hgb Conc 31.5 g/dL (32-36); Mean Corpuscular Volume 86.9 fL (80-100); Mean Platelet Volume 9.8 fL (7.4-10.4); Monocytes # (auto) 0.66 K/uL (0.11-0.59); Monocytes % (auto) 11.4 %; Neutrophils # (auto) 3.21 K/uL (1.4-6.5); Neutrophils % (auto) 55.2 %; Platelet Count 227 K/uL (130-400); RDW Standard Deviation 44.3 fL (36.4-46.3); Red Blood Count 4.27 M/uL (4.7-6.1); White Blood Count 5.81 K/uL (4.8-10.8)
[2021-08-15 04:33] LABS: BUN Creatinine Ratio 17.6 (10-20); Calcium 8.7 mg/dl (8.5-10.1); Creatinine Clr Calc Pharmacy 82.1 ml/min; Est GFR (African American) 85.3 ml/min; Est GFR (Non-African American) 73.6 ml/min; Magnesium 2.2 mg/dl (1.7-2.4); Phosphorus 3.5 mg/dl (2.5-4.9); Potassium 3.9 mmol/L (3.5-5.1)
[2021-08-15] MEDS ORDERED: METOPROLOL SUCC 50MG EXT REL TAB PO SCH (09:00)
[2021-08-15] MEDS ORDERED: METOPROLOL TARTRATE 1 MG/ML VIAL IV PRN (09:35)
--- NOTE | 2021-08-15 09:54 | Hospitalist Progress Note ---
Date of Service August 15, 2021 Assessment & Plan (1) Anticoagulant long-term use: (2) Atrial fibrillation, permanent: (3) CAD (coronary artery disease): (4) Cardiomyopathy: (5) Diabetes type 2, controlled: (6) Dyslipidemia: (7) Esophageal achalasia: (8) HTN (hypertension): (9) DARRYN (obstructive sleep apnea): (10) Dysphagia: Plan: Achalasia with recurrent dysphagia-GI consult -NPO except sips -hold p.o. meds -continue IV fluids until able to take p.o.. -continue IV Protonix b.i.d. for now. -GI consult pending. Mild anemia-no evidence of acute blood loss, follow-up as outpatient Coronary artery disease/history of ME x3/status post three-vessel CABG 1999/ischemic cardiomyopathy-echo March 2021 EF 40-45%. Followed by Dr. Coronado as an outpatient. -hold aspirin for now, restart when able to take p.o.. -volume status: euvolemic at this time. Hypertension-hold losartan -change metoprolol to IV 5 mg q.6 hours p.r.n. systolic blood pressure greater than 150 or heart rate greater than 100 Permanent AFib-hold Eliquis. If patient unable to have procedure today consider starting IV heparin. -change p.o. metoprolol to metoprolol 5 mg IV q.6 hours p.r.n. heart rate greater than 100. Diabetes, type 2-diet controlled, A1c 6.5% March 2021 Hyperlipidemia-hold statin for now. Restrictive lung disease and COPD-clinically stable at this time. Obstructive sleep apnea-patient uses an oral device as an outpatient. DVT prophylaxis-resume Eliquis when able to take p.o.. Disposition-anticipate discharge to home when able to take p.o.. Admission and Anticipated Discharge Date Admission Date: August 14, 2021 Subjective 71-year-old male with history of achalasia admitted 08/14/2021 with solid and liquid food dysphagia. Symptoms originally started Wednesday08/12/2021 in the evening. Symptoms progressed and patient was not able to swallow therefore he came to the emergency room yesterday. He has been able to tolerate sips of liquids while in the hospital. He has a history of type 3 spastic achalasia. He had surgery June 2018 at the [facility]. Esophageal manometry was normal in March of 2019. Chronic medical problems include history of colon polyps, coronary artery disease with 3 prior myocardial infarctions, CABG 1999 at [facility], ischemic cardiomyopathy (EF 40-45% March 2021), restrictive lung disease and COPD (followed by Dr. Lee), hyperlipidemia, diabetes (A1c 6.5% March 2021), hypertension, permanent atrial fibrillation, chronic anticoagulation with Eliquis, fatty liver, obstructive sleep apnea (uses oral device). Aside from a difficulty swallowing the patient has no specific concerns or complaints today. He denies chest pain or palpitations. No shortness of breath or cough. Denies fevers, chills, sweats. No abdominal pain. Denies leg edema. No focal neurologic complaints. Review of Systems Review of Systems: As noted in the HPI Physical Exam Constitutional: no acute distress Eyes: EOM intact bilaterally; no conjunctival abnormality and sclerae not anicteric ENMT: Ears: no external ear abnormality Nose: no external nose abnormality and face symmetric Neck: trachea midline Thyroid: normal thyroid Respiratory: normal respiratory effort, lungs clear to auscultation no dullness to percussion Auscultation: lungs clear to auscultation bilaterally; no rales, no rhonchi and no wheezes Cardiovascular: Rate/Rhythm: regular rate and + irregularly irregular Heart Sounds: normal S1 and normal S2; no gallop, no murmur and no cardiac rub Palpation: normal PMI Vessels: normal carotid upstroke; no JVD and no carotid bruit Extremities: no edema Chest (Breasts): Chest: normal inspection of chest Gastrointestinal (Abdomen): normal bowel sounds, soft, nontender, no hepatosplenomegaly Percussion/Palpation: normal to percussion Musculoskeletal: Head/Neck/Chest: normocephalic, head atraumatic and neck supple Extremities: extremities normal to inspection; no cyanosis and no clubbing Skin: normal turgor; no rashes and no lesions Neurologic: CN's II-XI intact bilaterally and moves all extremities; no focal motor deficits Speech / Cognition: normal speech Psychiatric: Orientation: alert and oriented x 3 Eye Contact: good eye cont act Motor Behavior: no abnormal motor movements Speech: no pressured speech Affect: euthymic affect Lymphatic: no preauricular lymphadenopathy, no cervical lymphadenopathy and no subclavicular lymphadenopathy Results & Data Results & Data ([facility]) Vital Signs (Past 12 Hours) Vital Signs Pulse Resp BP Pulse Ox 08/15/21 05:34 61 16 129/79 95 08/15/21 01:45 66 16 126/81 96 08/15/21 01:00 69 16 126/81 96 Primary Care Results Results Primary Care Results: WBC 5.81 K/uL (4.8-10.8) 08/15/21 RBC 4.27 M/uL (4.7-6.1) L 08/15/21 Hgb 11.7 g/dL (14.0-18.0) L 08/15/21 Hct 37.1 % (42-52) L 08/15/21 MCV 86.9 fL (80-100) 08/15/21 MCH 27.4 pg (25-34) 08/15/21 MCHC 31.5 g/dL (32-36) L 08/15/21 RDW Coefficient of Variation 14.0 % (11.5-14.5) 08/15/21 Plt Count 227 K/uL (130-400) 08/15/21 MPV 9.8 fL (7.4-10.4) 08/15/21 Immature Granulocyte % (Auto) 0.2 % 08/15/21 Neutrophils (%) (Auto) 55.2 % 08/15/21 Lymphocytes (%) (Auto) 29.9 % 08/15/21 INR 1.2 (0.9-1.1) H 08/14/21 APTT 24.0 Seconds (21.0-31.0) 07/08/21 Na 136 mmol/L (136-145) 08/15/21 K 3.9 mmol/L (3.5-5.1) 08/15/21 Cl 103 mmol/L (98-107) 08/15/21 CO2 23 mmol/L (21-32) 08/15/21 Anion Gap 10 (3-11) 08/15/21 BUN 18 mg/dl (6-23) 08/15/21 Creatinine 1.02 mg/dl (0.6-1.4) 08/15/21 Est Cr Clr Drug Dosing 82.1 ml/min 08/15/21 Estimated GFR ( Amer) 85.3 ml/min 08/15/21 Estimated GFR (Non-Af Amer) 73.6 ml/min 08/15/21 BUN/Creatinine Ratio 17.6 (10-20) 08/15/21 Glu 82 mg/dl (70-99) 08/15/21 HbA1c 6.5 % (4.5-5.6) H 03/04/21 Ca 8.7 mg/dl (8.5-10.1) 08/15/21 Phosphorus Level 3.5 mg/dl (2.5-4.9) 08/15/21 Mg 2.2 mg/dl (1.7-2.4) 08/15/21 Total Bilirubin 2.4 mg/dl (0.2-1.0) H 08/14/21 AST 34 U/L (13-39) 08/14/21 ALT 21 U/L (7-52) 08/14/21 Alkaline Phosphatase 67 U/L (34-104) 08/14/21 Total Protein 7.9 gm/dl (6.0-8.3) 08/14/21 Albumin 4.6 gm/dl (3.4-5.0) 08/14/21 Globulin 3.3 gm/dl (2.5-4.0) 08/14/21 Albumin/Globulin Ratio 1.4 (0.9-2) 08/14/21 Triglycerides 146 mg/dl (0-150) 10/16/20 Cholesterol Level 123 mg/dl (0-200) 10/16/20 LDL Cholesterol, Calculated 51 mg/dl 10/16/20 VLDL Cholesterol, Calculated 29 mg/dl 10/16/20 HDL Cholesterol 43 mg/dl 10/16/20 Cholesterol/HDL Ratio 3 10/16/20 TSH 2.300 uIu/ml (0.300-4.500) 07/08/21 PSA 2.160 ng/ml (0-4) 03/04/21 Urine Color Dark Yellow 03/04/21 Urine Appearance Cloudy (Clear) A 03/04/21 Urine pH 5.5 (4.5-7.5) 03/04/21 Urine Specific [place] 1.019 (1.000-1.030) 03/04/21 Urine Protein Negative (Negative) 03/04/21 Urine Glucose (UA) Negative (Negative) 03/04/21 Urine Ketones Negative (Negative) 03/04/21 Urine Blood Negative (Negative) 03/04/21 Urine Nitrite Negative (Negative) 03/04/21 Urine Bilirubin Negative (Negative) 03/04/21 Urine Urobilinogen Negative (Negative) 03/04/21 Urine Leukocyte Esterase Negative (Negative) 03/04/21 Urine WBC (Auto) 1-5 /hpf (0-5) 03/04/21 Urine RBC (Auto) 0-4 /hpf (0-4) 03/04/21 U Hyaline Casts (Auto) 1-5 /lpf (0-5) 03/04/21 U Epithelial Cells (Auto) 5-10 /lpf (0-5) H 03/04/21 Urine Bacteria (Auto) Negative (Negative) 03/04/21 Urine Microalbumin/Creatinine Ratio 14.4 mcg/mg (0-30) 03/04/21 PG Care Time/CCT Total # of Minutes Spent Total Time Spent with Patient: Total time spent is greater than 50% in coordination of care (as documented) at patient's floor/unit and/or counseling patient: Coding Level of Care Code 22514 Subseq Hosp Care Lvl 2 Diagnoses Anticoagulant long-term use Z79.01 Atrial fibrillation, permanent I48.2 CAD (coronary artery disease) I25.10 Associated angina: angina presence unspecified Coronary Disease-Associated Artery/Lesion type: [place] artery [place] vs. transplanted heart: [place] heart Cardiomyopathy I42.9 Diabetes type 2, controlled E11.9 Dyslipidemia E78.5 Esophageal achalasia K22.0 HTN (hypertension) I10 DARRYN (obstructive sleep apnea) G47.33 Dysphagia R13.10 (1) CAD (coronary artery disease) Associated angina: angina presence unspecified Coronary Disease-Associated Artery/Lesion type: [place] artery [place] vs. transplanted heart: [place] heart Qualified Code(s): I25.10 - Atherosclerotic heart disease of [place] coronary artery without angina pectoris
[2021-08-15] MEDS: PANTOprazole 40 MG in SYRINGE 0 ML IV SCH (10:00)
[2021-08-15] MEDS: APIXABAN 5 MG TABLET PO SCH ×2 (10:34→22:27)
[2021-08-15] MEDS: LACTATED RINGER'S 1,000 ML IV SCH (10:34)
[2021-08-15] MEDS: ASPIRIN 81 MG ECTAB PO SCH (10:34)
[2021-08-15] MEDS: LOSARTAN POTASSIUM 25 MG TAB PO SCH ×2 (10:35→22:28)
--- NOTE | 2021-08-15 12:11 | Gastrointestinal Consultation ---
Date of Consultation August 15, 2021 Assessment & Plan (1) Esophageal dysphagia: Likely food impaction, possibly due to dysmotility or inadequate myotomy; ddx = cancer, stricture. We will go forward with EGD today by Dr. Parker. Please continue to hold the Eliquis. Please keep n.p.o. to follow EGD. Supervising Physician Co-Signing Physician Notes Pt with achalasia, dysphagia, possible food impaction in esophagus. EGD today. History of Present Illness Reason for Consultation: dysphagia, ? food impaction Requesting Physician: Dr. Zina Recinos Attending Physician: Ankit Turpin MD History of Present Illness Mr. Lorenz is a 71-year-old male patient of Dr. Turpin with a history of CAD s/p 3 vessel CABG, HTN, HLD, T2DM, Atrial fibrillation on Eliquis, most recent dose yesterday morning. He underwent POEM for treatment of achalasia by Dr. Kong in 2018. Most recent EGD was by Dr. Kong in 2019 with findings of esophagitis and esophageal ulcer. He has not recently been on an acid teachers assistant. He had been doing well though continued with some intermittent dysphagia, feeling that food would get stuck in the middle of the chest after swallowing, also with occasional feeling of spasm if he drinks something too cold or too hot. These episodes of esophageal dysphagia have become more frequent. On Wednesday evening, when eating ham and beans, he felt that the food got lodged in the esophagus. He was able to regurgitate the food but has continued to feel like there "is something there." Since that time, he has been able to tolerate slowly sipping on low volumes of liquid. However if he tries to eat something solid he has chest discomfort and regurgitates the food soon after swallowing. He denies any ongoing symptoms of heartburn or reflux. He denies any blood in his stools or black tarry stools. No unexplained weight loss. He is awake alert oriented and comfortable in the emergency department during interview and exam. He is afebrile, hemodynamically stable glucagon was given without change in symptoms. He has mild ongoing shortness of breath with exertion since receiving his second COVID booster about 6 weeks ago, but does not have any worsened shortness of breath and does not have any chest discomfort since these symptoms of dysphagia began. Chest X ray was normal. Allergies Allergy/AdvReac Type Severity Reaction Status Date / Time bee venom protein (honey bee) Allergy Severe CHOKING Verified 08/14/21 18:15 WITH GENERALIZED SWELLING perflutren [From Definity] Allergy Mild Muscle Verified 08/14/21 18:15 aches/pain procaine Allergy Unknown ANAPHYLAXIS Verified 08/14/21 18:15 strawberry Allergy Unknown HIVES WITH Verified 08/14/21 18:15 ALOT metformin AdvReac Unknown Nausea Verified 08/14/21 18:15 omeprazole AdvReac Unknown DIARRHEA Verified 08/14/21 18:15 GI UPSET hepatitis A virus vaccine AdvReac Unknown Verified 08/14/21 18:15 [From Twinrix] hepatitis B virus vaccine, AdvReac Unknown Verified 08/14/21 18:15 recombin [From Twinrix] Home Medications Medication Instructions Recorded Confirmed Type aspirin 81 mg tablet,delayed 81 mg PO QAM #0 09/20/14 08/14/21 History release (Aspirin Low Dose) cholecalciferol (vitamin D3) 50 2,000 units PO QPM 08/23/18 08/14/21 History mcg (2,000 unit) capsule (Vitamin D3) ascorbic acid (vitamin C) 500 mg 500 mg PO Q OTHER DAY tab 03/21/20 08/14/21 History tablet nsrvwqqs-imi-ofpvm acid 300 1 tab PO Q OTHER DAY tab 03/21/20 08/14/21 History mcg-lycopene 600 mcg-lutein 300 mcg tablet (Centrum Silver Men) nitroglycerin 0.4 mg sublingual 0.4 mg SUBLINGUAL DIRECTED PRN 03/21/20 08/14/21 Rx tablet (Nitrostat) #25 tab apixaban 5 mg tablet (Eliquis) 5 mg PO BID #180 tab 11/11/20 08/14/21 Rx albuterol sulfate 90 mcg/actuation 1 inh INHALATION QID PRN #18 g 01/27/21 08/14/21 Rx aerosol inhaler losartan 25 mg tablet 25 mg PO BID #180 tab 04/10/21 08/14/21 Rx metoprolol succinate 100 mg 100 mg PO BID #60 tab 07/11/21 08/14/21 Rx tablet,extended release 24 hr triamcinolone acetonide 0.5 % See Rx Instructions TOPICAL TID 07/11/21 08/14/21 Rx topical cream PRN #15 g atorvastatin 40 mg tablet 20 mg PO HS #45 tab 08/05/21 08/14/21 Rx Patient History Medical History Actinic keratosis Adenomatous polyp of colon Atrial fibrillation CAD (coronary artery disease) CABG 3 VESSELS - [facility] history [facility] Claustrophobia Colon polyp Diabetes mellitus, type 2 BORDERLINE-NO MEDS Diverticular disease HX Diverticulitis Diverticulitis of colon Dyslipidemia Erectile dysfunction GERD (gastroesophageal reflux disease) Gout Hiatal hernia HLD (hyperlipidemia) HTN (hypertension) Hyperthyroidism Ischemic cardiomyopathy Left ventricular aneurysm Leukopenia Lymphadenopathy Migraine Myocardial infarction 1987-CARDIAC CATH NO STENTS DARRYN (obstructive sleep apnea) MOUTHPIECE HS Osteoarthritis Osteopenia Past myocardial infarction Pre-diabetes Restrictive lung disease Rising PSA remaining within normal limits Skin tags, multiple acquired Snoring Syncope Temporomandibular joint disorder CLICKS BILAT SIDES HAS NEVER LOCKED Ventricular tachycardia Vitamin D deficiency Witnessed apneic spells Surgical History Esophageal achalasia SURGERY TO REPAIR-METAL CLIP PRESENT IN AREA H/O sinus surgery Hx of CABG 3 VESSELS [facility] Family History Father , Mother of ovarian cancer at the age of 68. She also had diabetes. Father of an ND at the age of 71. Hypertension Myocardial infarction Cardiovascular disease Coronary heart disease Mother Family history of diabetes mellitus Uterine cancer Colorectal cancer Ovarian cancer Son Hypertension Diabetes Denies family history of Prostate cancer Breast cancer Social History Smoking Status: Former smoker Tobacco Type: Cigarettes Age Started Using Tobacco: 22; Age Quit Using Tobacco: 43; packs per day: 1.5; Years Smoked: 21; Cigarettes Per Day: 30; Number of Years Since Quit: 27; Second Hand Exposure: No; Hx Alcohol Use: Yes Alcohol type: beer Alcohol Intake Frequency Comment: rarely Hx Substance Use: No Preferred Language: Telugu Communication Ability: Effective Visual Impairment: No Limitations Hearing Ability: Use of Hearing Aid Missile Inspector Required: No Beliefs That Will Affect Care: None marital status: Current Living Situation: Significant Other current occupational status: retired Other Information That Helps Us Care for You: No Feels Safe at Home: Yes Safety Concerns: Feels Safe At This Time Childhood Exposure to Second-Hand Smoke: Yes Diet Comment: healthy diet caffeine: Yes Dental Care, Regularly: Yes Physical Activity Frequency: Does not Exercise Seatbelt Use: always Sunscreen Use: Yes Assistive Devices: None Review of Systems Review of Systems: ROS: Gen: Denies weakness, fevers, weight loss Eyes: No eye redness, or pain, no recent vision changes Resp: + Mild chronic exertional SOB x6 weeks, no recent worsening. No cough Cardio: No palpitations/irregular beats, no chest pain GI: As per HPI otherwise negative : Denies pain on urination Skin: No jaundice, itching or new rashes Total of 12 systems reviewed all others negative Physical Exam Constitutional: well developed and cooperative Eyes: PERRL, conjunctivae normal, anicteric sclerae Respiratory: normal respiratory effort, lungs clear to auscultation Cardiovascular: RRR, no murmur, no edema Gastrointestinal (Abdomen): Inspection/Auscultation: abdomen normal to inspection and normal bowel sounds; abdomen not distended and no abdominal edema Skin: no rashes, warm and dry normal turgor Neurologic: PERRL, EOMI, accommodation nl, no face palsy, no dysarthria awake; not confused Psychiatric: A+Ox3, euthymic affect Results & Data ([facility]) Vital Signs (Past 12 Hours) Vital Signs Pulse Resp BP Pulse Ox 08/15/21 05:34 61 16 129/79 95 08/15/21 01:45 66 16 126/81 96 08/15/21 01:00 69 16 126/81 96 Laboratory Results WBC 5.8, Hb 11.7, HCT 37.1, PLT S227, PT 12, INR 1.2, NA 136, K3.9, CL 103, CO2 23, BUN 18, CR 1.02, glucose 82. Diagnostic Findings Chest x-ray normal on 08/14/2021
--- NOTE | 2021-08-15 12:30 | Anesthesiology Consultation ---
Date of Service August 15, 2021 Assessment & Plan (1) Encounter for pre-operative examination: Chart Review Chart Review: Acceptable Risk for Surgery History Surgery Operation Date: 08/15/21 08:50 Proposed Procedures p Esophagogastroduodenoscopy - Shane Parker MD Operation Date: 08/15/21 16:30 Proposed Procedures p Esophagogastroduodenoscopy Dr De La Rosa - Shane Parker MD Height/Weight Height: 6 ft Weight: 102 kg Allergies Allergy/AdvReac Type Severity Reaction Status Date / Time bee venom protein (honey bee) Allergy Severe CHOKING Verified 08/14/21 18:15 WITH GENERALIZED SWELLING perflutren [From Definity] Allergy Mild Muscle Verified 08/14/21 18:15 aches/pain procaine Allergy Unknown ANAPHYLAXIS Verified 08/14/21 18:15 strawberry Allergy Unknown HIVES WITH Verified 08/14/21 18:15 ALOT metformin AdvReac Unknown Nausea Verified 08/14/21 18:15 omeprazole AdvReac Unknown DIARRHEA Verified 08/14/21 18:15 GI UPSET hepatitis A virus vaccine AdvReac Unknown Verified 08/14/21 18:15 [From Twinrix] hepatitis B virus vaccine, AdvReac Unknown Verified 08/14/21 18:15 recombin [From Twinrix] Medications Home Medications Medication Instructions Recorded Confirmed Last Taken aspirin 81 mg tablet,delayed 81 mg PO QAM #0 09/20/14 08/14/21 10/09/18 release (Aspirin Low Dose) cholecalciferol (vitamin D3) 50 2,000 units PO QPM 08/23/18 08/14/21 10/09/18 mcg (2,000 unit) capsule (Vitamin D3) ascorbic acid (vitamin C) 500 mg 500 mg PO Q OTHER DAY tab 03/21/20 08/14/21 Unknown tablet lxcvcurg-cza-lustd acid 300 1 tab PO Q OTHER DAY tab 03/21/20 08/14/21 Unknown mcg-lycopene 600 mcg-lutein 300 mcg tablet (Centrum Silver Men) nitroglycerin 0.4 mg sublingual 0.4 mg SUBLINGUAL DIRECTED PRN 03/21/20 08/14/21 Unknown tablet (Nitrostat) #25 tab apixaban 5 mg tablet (Eliquis) 5 mg PO BID #180 tab 11/11/20 08/14/21 Unknown albuterol sulfate 90 mcg/actuation 1 inh INHALATION QID PRN #18 g 01/27/21 08/14/21 Unknown aerosol inhaler losartan 25 mg tablet 25 mg PO BID #180 tab 04/10/21 08/14/21 Unknown metoprolol succinate 100 mg 100 mg PO BID #60 tab 07/11/21 08/14/21 Unknown tablet,extended release 24 hr triamcinolone acetonide 0.5 % See Rx Instructions TOPICAL TID 07/11/21 08/14/21 Unknown topical cream PRN #15 g atorvastatin 40 mg tablet 20 mg PO HS #45 tab 08/05/21 08/14/21 Unknown Active Medications Generic Name Dose Route Start Last Admin Trade Name Freq PRN Reason Stop Dose Admin Apixaban 5 mg 08/15/21 09:00 08/15/21 10:34 Apixaban 5 Mg Tablet PO 09/14/21 08:59 Not Given BID GUMARO Aspirin 81 mg 08/15/21 09:00 08/15/21 10:34 Aspirin 81 Mg Ectab PO 09/14/21 08:59 Not Given QAM GUMARO Lactated Ringer's 1,000 mls @ 80 mls/hr 08/14/21 20:30 08/15/21 10:34 Lr IV 09/13/21 20:29 80 mls/hr .[id number] GUMARO Administration Pantoprazole Sodium 40 mg/ 10 mls @ 5 mls/min 08/14/21 23:30 08/15/21 10:00 Syringe IV 09/13/21 23:29 5 mls/min BID GUMARO Administration Losartan Potassium 25 mg 08/15/21 09:00 08/15/21 10:35 Losartan Potassium 25 Mg Tab PO 09/14/21 08:59 Not Given BID GUMARO NPO Date Last Intake of Fluids: 08/14/21 Date Last Intake of Solids: 08/12/21 Past Medical History Medical History Actinic keratosis Adenomatous polyp of colon Atrial fibrillation CAD (coronary artery disease) CABG 3 VESSELS - [facility] Claustrophobia Colon polyp Diabetes mellitus, type 2 BORDERLINE-NO MEDS Diverticular disease HX Diverticulitis Diverticulitis of colon Dyslipidemia Erectile dysfunction GERD (gastroesophageal reflux disease) Gout Hiatal hernia HLD (hyperlipidemia) HTN (hypertension) Hyperthyroidism Ischemic cardiomyopathy Left ventricular aneurysm Leukopenia Lymphadenopathy Migraine Myocardial infarction 1987-CARDIAC CATH NO STENTS DARRYN (obstructive sleep apnea) MOUTHPIECE HS Osteoarthritis Osteopenia Past myocardial infarction Pre-diabetes Restrictive lung disease Rising PSA remaining within normal limits Skin tags, multiple acquired Snoring Syncope Temporomandibular joint disorder CLICKS BILAT SIDES HAS NEVER LOCKED Ventricular tachycardia Vitamin D deficiency Witnessed apneic spells Past Family History Family History Father , Mother of ovarian cancer at the age of 68. She also had diabetes. Father of an [place] at the age of 71. Hypertension Myocardial infarction Cardiovascular disease Coronary heart disease Mother Family history of diabetes mellitus Uterine cancer Colorectal cancer Ovarian cancer Son Hypertension Diabetes Denies family history of Prostate cancer Breast cancer Past Surgical History Surgical History Esophageal achalasia SURGERY TO REPAIR-METAL CLIP PRESENT IN AREA H/O sinus surgery Hx of CABG 3 VESSELS [facility] Social History Smoking Status: Former smoker tobacco type: cigarettes and pipe Smoking cigarettes per day: 30 Hx Alcohol Use: Yes Alcohol type: beer alcohol intake frequency: holidays/special occasions only Hx Substance Use: No substance use type: does not use Physical Exam Vital Signs Last Vital Signs Temp 36.6 C 08/14/21 17:22 Pulse 61 08/15/21 05:34 Resp 16 08/15/21 05:34 BP 129/79 08/15/21 05:34 Pulse Ox 95 08/15/21 05:34 Testing Laboratory Results 08/15/21 03:49 08/15/21 03:49 PT 12.2 Seconds (9.0-12.0) H 08/14/21 17:50 INR 1.2 (0.9-1.1) H 08/14/21 17:50 Electrocardiogram Date: 08/14/21 Findings: + AFIB @ (67) intraventricular conduction delay Chest X-Ray Date: 08/14/21 Findings: + cardiomegaly Echocardiogram Date: 03/12/21 EF: 40-45% mild MR mild TR severe atrial dilation
[2021-08-15] MEDS ORDERED: PROPOFOL IV EMULSION 10 MG/ML 20 ML VIAL IV ONE (15:16)
[2021-08-15] MEDS ORDERED: LIDOCAINE 2% 2 ML VIAL/AMP(20MG/ML) INFIL ONE (15:16)
[2021-08-15] MEDS ORDERED: fentaNYL citrate 100 MCG/2 ML VIAL IV PRN (15:20)
[2021-08-15] MEDS ORDERED: ATROPINE SULFATE 0.1 MG/ML 10ML SYR IV PRN (15:20)
[2021-08-15] MEDS ORDERED: ePHEDrine sulfate 50 MG/ML AMP IV PRN (15:20)
[2021-08-15] MEDS ORDERED: fentaNYL citrate 100 MCG/2 ML VIAL ONE (15:24)
--- NOTE | 2021-08-15 15:52 | GI REPORT ---
Patient Name: Bjorn Lorenz Procedure Date: 08/15/2021 2:55 PM Date of : 1950 Admit Type: Inpatient Age: 71 Gender: Male Attending MD: Shane Parker MD Procedure: Upper GI endoscopy Providers: Shane Parker MD Referring MD: Ankit Turpin Indications: Dysphagia, Foreign body in the esophagus Medicines: See the Anesthesia note for documentation of the administered medications Complications: No immediate complications. Estimated Blood Loss: Estimated blood loss: none. Procedure: Pre-Anesthesia Assessment: - ASA Grade Assessment: II - A patient with mild systemic disease. After obtaining informed consent, the endoscope was passed under direct vision. Throughout the procedure, the patient's blood pressure, pulse, and oxygen saturations were monitored continuously. The Endoscope was introduced through the mouth, and advanced to the second part of duodenum. The upper GI endoscopy was accomplished without difficulty. The patient tolerated the procedure well. Findings: The Z-line was found 40 cm from the incisors. There was a large piece of meat in the lower esophagus. This was cut with a snare, and then removed with a net and a snare. LA Grade B (one or more mucosal breaks greater than 5 mm, not extending between the tops of two mucosal folds) esophagitis with no bleeding was found. The GE junction was mildly narrowed, but easily passed by the upper endoscope. The stomach and duodenum were normal. Impression: Food impaction. Food removed. Recommendation: - Discharge patient to home. Shane Parker M.D. Shane Parker MD 08/15/2021 3:52:04 PM This report has been signed electronically. Note Initiated On: 08/15/2021 2:55 PM Number of Addenda: 0 I attest to the content of the Intraoperative Record and orders documented therein, exceptions below {[id number]}
[2021-08-15] MEDS ORDERED: ONDANSETRON INJ 2 MG/ML 2 ML VIAL ONE (16:10)
--- NOTE | 2021-08-15 18:41 | Electrocardiogram Report ---
Test Reason : Blood Pressure : / mmHG Vent. Rate : 067 BPM Atrial Rate : 312 BPM P-R Int : 000 ms QRS Dur : 188 ms QT Int : 502 ms P-R-T Axes : 000 -51 127 degrees QTc Int : 530 ms Atrial fibrillation with premature ventricular or aberrantly conducted complexes Left axis deviation Non-specific intra-ventricular conduction block Abnormal ECG When compared with ECG of 08-JUL-2021 21:16, No significant change Confirmed by Narayan Morfin ([id number]) on 08/15/2021 6:40:35 PM Referred By: Jonathan Turpin Confirmed By:Narayan Morfin
[2021-08-15] MEDS ORDERED: ATORVASTATIN 20 MG TAB PO SCH (21:00)
[2021-08-15] MEDS: METOPROLOL SUCC 50MG EXT REL TAB PO SCH (22:29)
[2021-08-16] MEDS: ASPIRIN 81 MG ECTAB PO SCH (08:03)
[2021-08-16] MEDS: APIXABAN 5 MG TABLET PO SCH (08:03)
[2021-08-16] MEDS: METOPROLOL SUCC 50MG EXT REL TAB PO SCH (08:04)
[2021-08-16] MEDS: LOSARTAN POTASSIUM 25 MG TAB PO SCH (08:04)
[2021-08-16 10:13] LABS: Basophils # (auto) 0.02 K/uL (0-0.2); Basophils % (auto) 0.4 %; Eosinophils # (auto) 0.22 K/uL (0-0.5); Hematocrit (blood only) 35.3 % (42-52); Hemoglobin 11.5 g/dL (14.0-18.0); Lymphocytes # (auto) 1.37 K/uL (1.2-3.4); Lymphocytes % (auto) 24.7 %; Mean Corpuscular Hgb Conc 32.6 g/dL (32-36); Mean Corpuscular Volume 85.9 fL (80-100); Mean Platelet Volume 9.6 fL (7.4-10.4); Monocytes # (auto) 0.74 K/uL (0.11-0.59); Monocytes % (auto) 13.3 %; Neutrophils % (auto) 57.6 %; Platelet Count 225 K/uL (130-400); RDW Coefficient of Variation 14.2 % (11.5-14.5); RDW Standard Deviation 44.2 fL (36.4-46.3); Red Blood Count 4.11 M/uL (4.7-6.1); White Blood Count 5.55 K/uL (4.8-10.8)
[2021-08-16 10:45] LABS: Albumin Level 3.8 gm/dl (3.4-5.0); BUN Creatinine Ratio 11.7 (10-20); Bilirubin Direct 0.4 mg/dl (0-0.2); Bilirubin,Total 2.2 mg/dl (0.2-1.0); Calcium 8.6 mg/dl (8.5-10.1); Creatinine Clr Calc Pharmacy 74.7 ml/min; Est GFR (Non-African American) 66.5 ml/min; Potassium 3.7 mmol/L (3.5-5.1); Total Protein 6.5 gm/dl (6.0-8.3)
[2021-08-16 11:06] VITALS: BP 121/79; TEMP 98.2; O2SAT 94
[2021-08-16 12:52] VITALS: PULSE 97
--- NOTE | 2021-08-16 16:07 | Discharge Summary ---
Date of Service August 16, 2021 Admission HPI Per Admitting Provider Bjorn Lorenz is a 71y/o M w/ PMH significant for CAD s/p 3 vessel CABG, HTN, HLD, T2DM, Atrial fibrillation, and esophageal achalasia; who presents for concerns regarding 3 days of persistent globus sensation with inability to tolerate eating. Patient notes that symptoms started Wednesday afternoon, following attempted to eat a piece of meat. Ensures that he regularly certain and thoroughly chews his food before swallowing in order to prevent any concerns or blockages. Typically states that has no issues with meats or liquids following his mucosotomy in 2018. Has not had dilations or additional procedures since that time as his achalasia has been doing well. Since Wednesday he has had this persistently occur with all attempts to consume solids. Notes that really had not been having much symptoms with liquids up late Wednesday evening, this seemed to come and go and generally he has been able to tolerate swallowing liquids. But notes that he continues to feel like something is stuck in his upper throat. Has had no changes to his voice, no difficulty with breathing, no chest pain, endorses loose bowel movements over the last 12 hours, no abdominal pain, endorses cramping upon presentation to ED. Principal Diagnosis Food bolus Discharge Exam Constitutional WD/WN, vitals as above Eyes EOM intact bilaterally; no conjunctival abnormality ENMT external ear and nose normal, oropharynx normal Neck trachea midline, no thyromegaly normal visual inspection Respiratory normal respiratory effort, lungs clear to auscultation no respiratory distress Cardiovascular RRR, no murmur, no edema Gastrointestinal (Abdomen) Inspection/Auscultation: abdomen normal to inspection; abdomen not distended Musculoskeletal no cyanosis or clubbing, extremities motor strength 5/5 Skin no rashes, warm and dry Neurologic moves all extremities and awake Psychiatric Orientation: alert, oriented to person and cooperative Discharge Data Allergies Allergy/AdvReac Type Severity Reaction Status Date / Time bee venom protein (honey bee) Allergy Severe CHOKING Verified 08/14/21 18:15 WITH GENERALIZED SWELLING perflutren [From Definity] Allergy Mild Muscle Verified 08/14/21 18:15 aches/pain procaine Allergy Unknown ANAPHYLAXIS Verified 08/14/21 18:15 strawberry Allergy Unknown HIVES WITH Verified 08/14/21 18:15 ALOT metformin AdvReac Unknown Nausea Verified 08/14/21 18:15 omeprazole AdvReac Unknown DIARRHEA Verified 08/14/21 18:15 GI UPSET hepatitis A virus vaccine AdvReac Unknown Verified 08/14/21 18:15 [From Twinrix] hepatitis B virus vaccine, AdvReac Unknown Verified 08/14/21 18:15 recombin [From Twinrix] Consultations 08/14/21 20:23 Consult Gastroenterology Routine 08/14/21 20:26 ED Decision to Admit Stat Procedures Performed Operation Date: 08/15/21 08:50 Actual Procedures p Esophagogastroduodenoscopy - Shane Parker MD Operation Date: 08/15/21 16:30 <No data on this case meets the specified criteria> Hospital Course (1) Anticoagulant long-term use: (2) Atrial fibrillation, permanent: (3) CAD (coronary artery disease): (4) Cardiomyopathy: (5) Diabetes type 2, controlled: (6) Dyslipidemia: (7) Esophageal achalasia: (8) HTN (hypertension): (9) DARRYN (obstructive sleep apnea): (10) Dysphagia: Achalasia with recurrent dysphagia-GI consulted -GI consulted -> S/p EGD with Dr. Parker with removal of food bolus. Encouraged to take small bites, frequent sips, chew thoroughly. Mild anemia-no evidence of acute blood loss, follow-up as outpatient Coronary artery disease/history of NC x3/status post three-vessel CABG 1999/ischemic cardiomyopathy-echo March 2021 EF 40-45%. Followed by Dr. Coronado as an outpatient. -hold aspirin for now, restart when able to take p.o.. -volume status: euvolemic at this time. Hypertension-hold losartan -change metoprolol to IV 5 mg q.6 hours p.r.n. systolic blood pressure greater than 150 or heart rate greater than 100 Permanent AFib-hold Eliquis. If patient unable to have procedure today consider starting IV heparin. -change p.o. metoprolol to metoprolol 5 mg IV q.6 hours p.r.n. heart rate greater than 100. Diabetes, type 2-diet controlled, A1c 6.5% March 2021 Hyperlipidemia-hold statin for now. Restrictive lung disease and COPD-clinically stable at this time. Obstructive sleep apnea-patient uses an oral device as an outpatient. DVT prophylaxis-resume Eliquis when able to take p.o.. Disposition-anticipate discharge to home when able to take p.o.. Total Time Total Time Spent Total Time Spent (In Minutes): 25 Discharge Plan Discharge Items Patient Disposition: Home - Self-Care Reason For Visit: GLOBUS SENSATION Discharge Diagnosis: Food bolus stuck in esophagus Activity: Resume your previous activity Non-emergency contact: Primary Care Provider Call non-emergency contact if: your symptoms worsen Follow-up/Referrals: Ankit Turpin MD [Primary Care Provider] - 08/25/21 11:00 am Diet: Carb Consistent or DM2 Addtl Attending Provider Instructions: Mr. Lorenz, You were admitted to the hospital with a food bolus stuck in your esophagus. Dr. Parker was able to get this out during an EGD (scope that travels down to your stomach). There were no other issues seen on the EGD, and you are clear to go. To prevent this in the future, please take small bites, chew well, and take sips of water/other liquid in between each bite. Pending Studies at Discharge: No Stand-Alone Forms: My [facility] [employer], Smoking Cessation Medications and DC Order Prescriptions: Continued aspirin [Aspirin Low Dose] 81 mg Tablet,Delayed Release (Dr/Ec) 81 mg PO QAM Qty: 0 RF: 0 Eliquis 5 mg tablet 5 mg PO BID Qty: 180 RF: 3 losartan 25 mg tablet 25 mg PO BID Qty: 180 RF: 3 atorvastatin 40 mg tablet 20 mg PO HS Qty: 45 RF: 3 ascorbic acid (vitamin C) 500 mg tablet 500 mg PO Q OTHER DAY RF: 0 nitroglycerin [Nitrostat] 0.4 mg tablet, sublingual 0.4 mg Sublingual DIRECTED PRN (Reason: Chest Pain) Qty: 25 RF: 5 triamcinolone acetonide 0.5 % cream See Rx Instructions topical TID PRN (Reason: itching) Qty: 15 RF: 1 metoprolol succinate 100 mg tablet extended release 24 hr 100 mg PO BID Qty: 60 RF: 3 albuterol sulfate 90 mcg/actuation HFA aerosol inhaler 1 inh inhalation QID PRN (Reason: shortness of breath or wheezing) Qty: 18 RF: 1 Centrum Silver Men 300-600-300 mcg tablet 1 tab PO Q OTHER DAY RF: 0 cholecalciferol (vitamin D3) [Vitamin D3] 2,000 unit Capsule 2,000 units PO QPM RF: 0 Discharge Orders: Discharge Order (Routine); Ordered 08/16/21 Ordered By: Parvez Conner Admission Data Admit Date/Time: 08/14/21 21:59 Attending Provider: Parvez Conner Admit Provider: Andrew Cazares Primary Care Provider: Ankit Turpin Other Providers: Shane Parker ; Parvez Conner Other Interventions: Discharge Summary Assessment (RN) Last Done: 08/16/21 12:50 Coding Level of Care Code 02289 OBS Care - Discharge Diagnoses Anticoagulant long-term use Z79.01 Atrial fibrillation, permanent I48.2 CAD (coronary artery disease) I25.10 Coronary Disease-Associated Artery/Lesion type: [place] artery [place] vs. transplanted heart: [place] heart Associated angina: angina presence unspecified Cardiomyopathy I42.9 Diabetes type 2, controlled E11.9 Dyslipidemia E78.5 Esophageal achalasia K22.0 HTN (hypertension) I10 DARRYN (obstructive sleep apnea) G47.33 Dysphagia R13.10
--- NOTE | 2021-08-19 11:07 | Anesthesiology Progress Note ---
Date of Service August 19, 2021 Anesthesia Post Procedure Pain Intensity Lower Abdomen: Pain Intensity: 1 Throat: Pain Intensity: 1 Transfer of Care Handoff Completed per policy Notes Mental Status: alert / awake / arousable Patient Amnestic to Procedure: Yes Nausea / Vomiting: adequately controlled Pain: adequately controlled Airway Patency, RR, SpO2: stable & adequate BP & HR: stable & adequate Hydration State: stable & adequate Anesthetic Complications: no major complications apparent
== END 2021-08-16 13:13 | disposition home or self-care (01) ==
LOC: ED 17:09 → EDINP 17:09 → SUATTDRO 21:59 → 2N 08-15 20:11

== ENCOUNTER 2024-05-02 11:56 | Inpatient (IN) ==
--- NOTE | 2024-05-02 13:34 | History & Physical Report ---
Date of Service May 02, 2024 Assessment & Plan (1) Ischemic cardiomyopathy: (2) LBBB (left bundle branch block): (3) CAD (coronary artery disease): (4) Increasing shortness of breath: (5) Atrial fibrillation, permanent: Plan 1. Ischemic cardiomyopathy: He has a long history of ischemic cardiomyopathy and his ejection fraction was only mildly reduced for quite a few years after his surgery in 1999. More recently he has developed worsening left ventricular function. It seems unlikely that this is due to worsening of his coronary artery disease since he has not had an interim event that we know of. He has however a very wide QRS complex which could lead to left ventricular dysfunction. In that case he has an ischemic cardiomyopathy initially with a nonischemic cardiomyopathy superimposed. He has been treated with guideline directed medical therapy without recovery of his ejection fraction. He does meet criteria for ICD implantation. We will plan biventricular ICD implantation today. 2. Left bundle branch block: He has a left bundle branch block with a QRS duration of 190 ms. It is not surprising with this duration that he has developed left ventricular dysfunction and I suspect correction of this dyssynchrony would improve his left ventricular function. I have therefore recommended resynchronization therapy. This could be done with a biventricular pacemaker or potentially a left bundle branch pacemaker, the data remains more robust with biventricular pacing so I would recommend that approach. If that fails we can move onto a left bundle branch pacing lead. 3. Coronary disease: He has known coronary disease but this progressive left ventricular dysfunction does not seem to be related to ischemia and he does not have symptoms of angina. He has been treated with platelet inhibitors and atorvastatin. 4. Dyspnea on exertion: He has had progressive dyspnea on exertion although his ejection fraction has not objectively declined but is quite low and I suspect he has worsening cardiac performance. Perhaps his dyssynchrony is worsening, this is hard to test. I would expect this to improve with resynchronization therapy. 5. Permanent atrial fibrillation: He has held his anticoagulation for several days, with his permanent atrial fibrillation we will not implant an atrial lead but otherwise the procedure is the same as a dual-chamber device. I reviewed the indications, procedure, risks and alternatives with the patient, and answered all questions. Patient understands and agrees to the procedure. Consent obtained. I also reviewed the risks and use of sedation, patient understands and consent obtained. History of Present Illness Chief Complaint: Congestive heart failure, left bundle branch block, severe left ventricular dysfunction Primary Care Provider: Ankit Turpin MD Allergies Allergy/AdvReac Type Severity Reaction Status Date / Time bee venom protein (honey bee) Allergy Severe CHOKING Verified 04/13/24 11:15 WITH GENERALIZED SWELLING perflutren [From Definity] Allergy Mild Muscle Verified 04/13/24 11:15 aches/pain procaine Allergy Unknown ANAPHYLAXIS Verified 04/13/24 11:15 strawberry Allergy Unknown HIVES WITH Verified 04/13/24 11:15 ALOT metformin AdvReac Unknown Nausea Verified 04/13/24 11:15 omeprazole AdvReac Unknown DIARRHEA Verified 04/13/24 11:15 GI UPSET hepatitis A virus vaccine AdvReac Unknown Verified 04/13/24 11:15 [From Twinrix] hepatitis B virus vaccine, AdvReac Unknown Verified 04/13/24 11:15 recombin [From Twinrix] Home Medications Medication Instructions Recorded Confirmed Type aspirin 81 mg tablet,delayed 81 mg PO QAM ##0 09/20/14 04/13/24 History release (Jazzy Low Dose Aspirin) ascorbic acid (vitamin C) 500 mg 500 mg PO Q2D 03/21/20 04/13/24 History tablet mbskeunt-wv-ybohg 300 mcg-K 60 1 tab PO Q2D 03/21/20 04/13/24 History mcg-lycop 600 mcg-lutein 300 mcg tablet (Centrum Silver Men) atorvastatin 40 mg tablet 20 mg (1/2 x 40 mg) PO HS #45 tabs 08/05/21 04/13/24 Rx nitroglycerin 0.4 mg sublingual 0.4 mg sublingual DIRECTED PRN 05/12/22 04/13/24 Rx tablet (Nitrostat) Chest Pain #25 tabs pantoprazole 40 mg tablet,delayed 40 mg PO DAILY #30 tabs 06/23/22 04/13/24 Rx release rivaroxaban 20 mg tablet (Xarelto) 20 mg PO DAILY #90 tabs 06/24/22 04/13/24 Rx albuterol sulfate 90 mcg/actuation 2 inh inhalation QID PRN shortness 04/12/23 04/13/24 Rx aerosol inhaler of breath or wheezing #18 grams cholecalciferol (vitamin D3) 50 3,000 unit PO QPM 04/12/23 04/13/24 History mcg (2,000 unit) capsule (Vitamin D3) fluticasone furoate 200 1 inh inhalation DAILY #60 ea 04/12/23 04/13/24 Rx mcg-vilanterol 25 mcg/dose inhalation powder (Breo Ellipta) metoprolol succinate 100 mg 50 mg PO BID 04/12/23 04/13/24 History tablet,extended release 24 hr triamcinolone acetonide 0.5 % See Rx Instructions topical TID 04/12/23 04/13/24 Rx topical cream PRN itching #30 grams spironolactone 25 mg tablet 25 mg PO DAILY #90 tabs 06/09/23 04/13/24 Rx sacubitril 97 mg-valsartan 103 mg 1 tab PO BID #180 tabs 07/08/23 04/13/24 Rx tablet (Entresto) amoxicillin 500 mg capsule 2,000 mg PO PRN 10/11/23 04/13/24 History famotidine 20 mg tablet 20 mg PO DAILY #90 tabs 10/11/23 04/13/24 Rx Past Med/Surg History Problem List Arthralgia HFrEF (heart failure with reduced ejection fraction) LBBB (left bundle branch block) Interstitial lung disease Nerve sheath tumor CAD (coronary artery disease) (Chronic) CABG 3 VESSELS - [facility] [place]-distant history mi 09/1999 HTN (hypertension) (Chronic) DARRYN (obstructive sleep apnea) (Chronic) MOUTHPIECE HS (has not worn in "a long time") Hx of CABG (Chronic) 3 VESSELS [facility] HLD (hyperlipidemia) Cardiomyopathy Migraine Temporomandibular joint disorder CLICKS BILAT SIDES HAS NEVER LOCKED GERD (gastroesophageal reflux disease) hx - no current issues Diverticular disease HX Osteoarthritis Gout Esophageal achalasia (moderate) SURGERY TO REPAIR-METAL CLIP PRESENT IN AREA History of colon polyps Witnessed apneic spells (Acute) Vitamin D deficiency (Acute) Syncope (Acute) Rising PSA remaining within normal limits (Acute) Pre-diabetes (Acute) Past myocardial infarction (Acute) 1987 & 1999 Osteopenia (Acute) Lymphadenopathy (Acute) Leukopenia (Acute) Left ventricular aneurysm (Acute) Ischemic cardiomyopathy (Acute) Hyperthyroidism (Acute) hx --> no surgery. no medications - [facility] [place]. Hiatal hernia (Acute) Erectile dysfunction (Acute) Dyslipidemia (Acute) Adenomatous polyp of colon (Acute) Actinic keratosis (Acute) Diabetes type 2, controlled (Chronic) Atrial fibrillation, permanent (Chronic) Greater trochanteric bursitis New onset left bundle branch block (LBBB) (Acute) Atypical chest pain Anticoagulant long-term use Restrictive lung disease Dysphagia Esophageal dysphagia Wen esophagus History of colon polyps Lumbar disc disease Abnormal PFT Increasing shortness of breath Medical History Atrial fibrillation Chronic obstructive pulmonary disease Claustrophobia Colon polyp History of cervical fracture History of esophageal dilatation Hx of lower gastrointestinal bleeding Myocardial infarction On anticoagulant therapy Ventricular tachycardia Surgical History History of cardiac cath History of colonoscopy History of esophagogastroduodenoscopy (EGD) Family History Father Hypertension Myocardial infarction Cardiovascular disease Coronary heart disease Mother Family history of diabetes mellitus Uterine cancer Colorectal cancer Ovarian cancer Son Hypertension Diabetes Denies family history of Prostate cancer Breast cancer Social History Smoking Status: Former smoker Tobacco Type: Cigarettes Age Started Using Tobacco: 22; Age Quit Using Tobacco: 43; packs per day: 1.5; Cigarettes Per Day: 30; Second Hand Exposure: No; Do You Dip or Chew Tobacco: No; Hx Alcohol Use: Yes Alcohol type: beer Alcohol Intake Frequency Comment: rarely Hx Substance Use: No Preferred Language: Yakut Communication Ability: Effective Visual Impairment: No Limitations Hearing Ability: Use of Hearing Aid Student Financial Services Counselor Required: No Beliefs That Will Affect Care: None marital status: Current Living Situation: Alone Current Living Situation Comment: grandson and girlfriend current occupational status: retired Other Information That Helps Us Care for You: No Feels Safe at Home: Yes Safety Concerns: Feels Safe At This Time Childhood Exposure to Second-Hand Smoke: Yes Diet: other Diet Comment: healthy diet caffeine: Yes Dental Care, Regularly: Yes Physical Activity Frequency: Does not Exercise Seatbelt Use: always Sunscreen Use: Yes Assistive Devices: Glasses and Hearing Aid - Bilateral Physical Exam Physical Exam: Constitutional: Alert, cooperative and in no distress. HEENT: Unremarkable Neck: No jugular venous distention, carotid pulses are irregular but otherwise normal and equal bilaterally without bruits. Pulmonary: Clear to auscultation bilaterally. Cardiac: Irregular rhythm with no murmur, gallop or rub. Abdomen: Soft, nontender with normal bowel sounds. Extremities: No edema. Neurologic: No focal findings. Gait is steady. Skin: No rash, ecchymoses or petechiae. Results & Data Results & Data Vital Signs (Past 12 Hours) Vital Signs Pulse Resp BP Pulse Ox O2 Del Method 05/02/24 12:25 76 14 164/109 H 98 Room Air Laboratory Results Intake and Output 05/01/24 05/02/24 05/02/24 22:59 06:59 14:59 Other: Weight 106.594 kg Weight Measurement Method Standing Scale Patient Weight 05/03/24 06:59 Weight 106.594 kg Diagnostic Findings Telemetry: Atrial fibrillation with a controlled heart rate PG Care Time/CCT Total # of Minutes Spent Total Time Spent with Patient: Total time spent is greater than 50% in coordination of care (as documented) at patient's floor/unit and/or counseling patient: Coding Level of Care Code None Diagnoses Ischemic cardiomyopathy I25.5 LBBB (left bundle branch block) I44.7 Coronary artery disease involving [place] coronary artery of [place] heart, angina presence unspecified I25.10 Coronary Disease-Associated Artery/Lesion type: [place] artery [place] vs. transplanted heart: [place] heart Associated angina: angina presence unspecified Increasing shortness of breath R06.02 Atrial fibrillation, permanent I48.2 (3) CAD (coronary artery disease) Coronary Disease-Associated Artery/Lesion type: [place] artery [place] vs. transplanted heart: [place] heart Associated angina: angina presence unspecified Qualified Code(s): I25.10 - Atherosclerotic heart disease of [place] coronary artery without angina pectoris
--- NOTE | 2024-05-02 13:39 | Pre Anesthesia Assessment ---
Date of Service May 02, 2024 Pre Sedation Assessment Vital Signs Pulse Resp BP Pulse Ox O2 Del Method 05/02/24 12:25 76 14 164/109 H 98 Room Air Cardiovascular + irregularly irregular Respiratory normal respiratory effort, lungs clear to auscultation Pre-Sedation Airway Assessment Smoking Status: Former smoker Hx Sleep Apnea: No Hx Difficult Intubation: No Short, Thick Neck: No Thyromental Distance: > or= 3.5 Finger Breadths Oral Cavity: + WNL Mallampati Class: II ASA: ASA3 NPO Status Date of Last Intake of Fluids: 05/02/24 Time of Last Intake of Fluids: 08:00 Date of Last Intake of Solid Food: 05/01/24 Time of Last Intake of Solid Foods: 20:20 Procedure Planning Contraindications for Sedation: none Current Medications Reviewed: Yes Notes The planned sedation has been discussed with the patient. Informed Consent was obtained. I have identified the patient, determined the appropriateness of sedation and have assessed the patient immediately prior to the procedure. All medicine(s) and interventions are by my order.
[2024-05-02] MEDS: LIDOCAINE 1% LOCAL 20 ML VIAL ONE (14:06)
[2024-05-02] MEDS: VANCOMYCIN HCL 1000MG/20ML VIAL ONE (14:12)
[2024-05-02] MEDS: WATER, STERILE FOR INJ 10 ML VIAL ONE (14:12)
[2024-05-02] MEDS: ceFAZolin 330 MG/ML 1 GM VIAL ONE (14:12)
[2024-05-02] MEDS: MIDAZOLAM HCL 5 MG/ML 1 ML VIAL ONE (15:21)
[2024-05-02] MEDS: MIDAZOLAM HCL 1 MG/ML 2ML VIAL ONE (15:23)
[2024-05-02] MEDS: fentaNYL citrate PF 100 MCG/2 ML VIAL ONE ×2 (15:23)
--- NOTE | 2024-05-02 16:12 | Electrophysiology Report ---
Date of Service May 02, 2024 Electrophysiology Procedure Electrophysiology Procedure Report Preoperative diagnosis: Left bundle branch block, cardiomyopathy, congestive heart failure, permanent atrial fibrillation Postoperative diagnosis: Same Procedure: Left subclavian venogram Ventricular defibrillator lead implantation Coronary sinus angiography Left ventricular lead implantation Biventricular ICD implantation Surgeon: Narayan Morfin MD Estimated blood loss: 50 cc Complications: None Disposition: Cardiology recovery Procedure details: After obtaining informed consent for the procedure, the patient was brought to the laboratory and prepped and draped in the standard sterile manner. Dye was injected the left arm IV site to opacify the left subclavian vein. The subclavian vein was identified and found to be free of obstruction. The left prepectoral region was anesthetized with 1% lidocaine local anesthetic and left axillary venipuncture was performed by percutaneous technique and a guidewire placed through the left subclavian vein into the superior vena cava. The area was further infiltrated with 1% lidocaine local anesthetic and a 7 cm incision was made parallel to the left clavicle and 2 cm below it and carried down to the anterior pectoralis fascia. An ICD pocket was formed by blunt dissection anterior to the pectoralis fascia and a vancomycin- soaked sponge was placed in the pocket. A 10.5 [place] Medtronic lead introducer was placed over the guidewire into the left subclavian vein, the dilator and guidewire were removed and a bipolar active fixation steroid tipped ventricular ICD lead was advanced through the introducer into the superior vena cava. A guidewire was placed through the introducer and the introducer was stripped from the lead and guidewire. Using a curved stylette the ventricular lead was advanced through the right ventricular outflow tract into the pulmonary artery and then using a straight stylette was positioned in the right ventricular apex. The screw was extended fixing the lead in position. Pacing and sensing thresholds were evaluated in bipolar configuration and are recorded on the implant data sheet. Diaphragmatic pacing was evaluated at full bipolar output as indicated on the data sheet. Once the RV lead was in position it were attached to the anterior pectoralis fascia using 1 suture of 2-0 silk around the lead collar. The short guidewire was exchanged for a long guidewire and a [place] coronary sinus sheath was advanced to position in the right atrium. The curved obturator was placed through the sheath and using x-ray dye the os of the coronary sinus was identified. A guidewire was placed through the introducer into the coronary sinus and the [place] sheath was advanced into the coronary sinus. A balloon occlusion catheter was advanced through this sheath into the coronary sinus, the balloon was inflated and dye was injected in various projections to obtain a coronary sinus angiogram. A quadripolar coronary sinus catheter was advanced over the guidewire into good distal position. The left ventricular pacing threshold was evaluated in various configurations, as recorded on the implant data sheet. Diaphragmatic pacing was evaluated at full output, as indicated on the data sheet. Once this lead was in position the introducer system was removed from the lead and the lead was attached to the anterior pectoral fascia using 2 sutures of 2-0 silk around the lead collar. An additional suture of 2-0 silk was placed around the ventricular lead collar as well. The bacitracin-soaked sponge was removed from the pocket, hemostasis was obtained, the ICD was attached to the leads and placed in the pocket with the leads coiled beneath it. The incision was closed with a running double subcutaneous closure of 3-0 Vicryl absorbable suture, followed by running subcuticular skin closure of 4-0 Vicryl absorbable suture. Bacitracin ointment was placed on the incision and a pressure dressing applied. At the conclusion of the procedure there was some fluctuation in left ventricular pacing threshold, however it remained within the capability of the device and having obtained good position no attempts were made to reposition the lead. [facility] Electrophysiology codes Indication for Procedure (1) HFrEF (heart failure with reduced ejection fraction): (2) LBBB (left bundle branch block): (3) CAD (coronary artery disease): Pacing Procedure 1: Pacin BiV electrode w/Pacer / ICD implant, add on code ICD Procedure 1: ICD: 50873 Insert single or dual ICD system Miscellaneous Procedures Procedure 1: EP Miscellaneous: 13296 Contrast injection for venography Procedure 2: EP Miscellaneous: 53098-87 Vengraphy, extremity Procedure 3: EP Miscellaneous: 30923-65 Venography, CS supevsion/interp PG Moderate Sedation Codes Moderate Sedation Codes Procedure 1: Sedation/Anesthesia: 85532 Mod Sedation by the same physician;Init15 Min Child Age 5 & Up Procedure 2: Sedation/Anesthesia: 86933 Mod Sedation by the same physician; Ea [id number] Minutes
[2024-05-02] MEDS ORDERED: ALBUTEROL HFA 8 GM INHALER INH PRN (16:13)
[2024-05-02] MEDS: ACETAMINOPHEN W/CODEINE #3 1 TAB PO PRN (18:22)
[2024-05-02] MEDS: VALSARTAN/SACUBITRIL 103/97MG TAB PO SCH (20:26)
[2024-05-02] MEDS: ATORVASTATIN 20 MG TAB PO SCH (20:26)
[2024-05-02] MEDS: METOPROLOL SUCC 50MG EXT REL TAB PO SCH (20:26)
[2024-05-03 00:11] VITALS: RESP 18
[2024-05-03 03:51] VITALS: O2SAT 95
--- NOTE | 2024-05-03 10:50 | XRay Report ---
XR chest 2V PA/lateral CLINICAL HISTORY: Pacemaker insertion. COMPARISON STUDY: Chest radiograph April 20, 2023. Chest CT April 14, 2024. FINDINGS: There is no pneumothorax following placement of a biventricular left subclavian pacer/AICD. There is no evidence for pulmonary edema. Cardiomegaly is again noted. There is no pleural effusion or consolidation. Median sternotomy wires and mediastinal surgical clips are again noted. IMPRESSION: No pneumothorax placement of a left subclavian biventricular pacer/AICD. ACT 112: Negative or not required by law. Electronically signed by: Charly Ross M.D. 05/03/2024 10:49 AM
[2024-05-03] MEDS: FAMOTIDINE 20 MG TAB PO SCH (10:55)
[2024-05-03] MEDS: SPIRONOLACTONE 25 MG TAB PO SCH (10:55)
[2024-05-03] MEDS: ASPIRIN 81 MG ECTAB PO SCH (10:55)
[2024-05-03] MEDS: PANTOprazole 40 MG TAB PO SCH (10:56)
[2024-05-03] MEDS: ACETAMINOPHEN 325 MG TAB PO PRN (10:57)
[2024-05-03 11:36] VITALS: BP 103/68; TEMP 97.9
--- NOTE | 2024-05-03 13:40 | Discharge Summary ---
Date of Service May 03, 2024 Admission HPI Per Admitting Provider Patient with an ischemic cardiomyopathy, associated symptoms and permanent atrial fibrillation presented for implantation of a prophylactic ICD and resynchronization therapy. Principal Diagnosis Ischemic cardiomyopathy Discharge Exam On the day of discharge the patient was feeling well. He was ambulatory without symptoms Device implant site free of hematoma, drainage or erythema Discharge Data Allergies Allergy/AdvReac Type Severity Reaction Status Date / Time bee venom protein (honey bee) Allergy Severe CHOKING Verified 05/03/24 09:58 WITH GENERALIZED SWELLING perflutren [From Definity] Allergy Mild Muscle Verified 05/03/24 09:58 aches/pain procaine Allergy Unknown ANAPHYLAXIS Verified 05/03/24 09:58 strawberry Allergy Unknown HIVES WITH Verified 05/03/24 09:58 ALOT metformin AdvReac Unknown Nausea Verified 05/03/24 09:58 omeprazole AdvReac Unknown DIARRHEA Verified 05/03/24 09:58 GI UPSET hepatitis A virus vaccine AdvReac Unknown Verified 05/03/24 09:58 [From Twinrix] hepatitis B virus vaccine, AdvReac Unknown Verified 05/03/24 09:58 recombin [From [employer]] Procedures Performed Operation Date: 05/02/24 13:00 Actual Procedures p ICD Insertion Single or Dual - Narayan Morfin MD Ordered Studies 05/02/24 07:15 EP Lab Images for PACS ONCE Hospital Course (1) HFrEF (heart failure with reduced ejection fraction): (2) LBBB (left bundle branch block): (3) CAD (coronary artery disease): Plan 1. Ischemic cardiomyopathy: He has a long history of ischemic cardiomyopathy and his ejection fraction was only mildly reduced for quite a few years after his surgery in 1999. More recently he has developed worsening left ventricular function. It seems unlikely that this is due to worsening of his coronary a rtery disease since he has not had an interim event that we know of. He has however a very wide QRS complex which could lead to left ventricular dysfunction. In that case he has an ischemic cardiomyopathy initially with a nonischemic cardiomyopathy superimposed. He has been treated with guideline directed medical therapy without recovery of his ejection fraction. He does meet criteria for ICD implantation. He underwent successful implantation of a biventricular ICD without evident complication. 2. Left bundle branch block: He has a left bundle branch block with a QRS duration of 190 ms. Coronary sinus lead placed at the time of ICD implantation for resynchronization therapy. 3. Coronary disease: He has known coronary disease but this progressive left ventricular dysfunction does not seem to be related to ischemia and he does not have symptoms of angina. He has been treated with platelet inhibitors and atorvastatin. 4. Dyspnea on exertion: He has had progressive dyspnea on exertion although his ejection fraction has not objectively declined but is quite low and I suspect he has worsening cardiac performance. Perhaps his dyssynchrony is worsening, this is hard to test. I would expect this to improve with resynchronization therapy. 5. Permanent atrial fibrillation: Will recommend resuming systemic anticoagulation the day following discharge Hospital course was uncomplicated. Chest x-ray did not demonstrate pneumothorax and lead position was stable. Device interrogation revealed adequate sensing and threshold parameters on the ventricular leads. The device was reprogrammed to pace LV4-LV3 of the coronary sinus lead. This had a optimal threshold. Review of his EKGs suggest there could be fusion from atrial fibrillation at times. It is also possible that there is intermittent capture of the coronary sinus lead. This can be reevaluated in the outpatient setting. Total Time Total Time Spent Total Time Spent (In Minutes): 20 Discharge Plan Discharge Items Patient Disposition: Home - Self-Care Reason For Visit: ICD IMPLANT Discharge Diagnosis: cardiomyopathy Activity: Per Instructions section Activity Comment: No lifting left arm above shoulder behind neck for 6 weeks Lifting: No more than 10 pounds Bathing: Keep incision dry Bathing Comment: Keep wound dry and bandage intact until follow-up tomorrow Non-emergency contact: Web Development Intern Call non-emergency contact if: you have any medication questions, your pain is concerning for you, you have a fever, your wound has increased redness, your wound has increased drainage and your wound pain has increased Follow-up/Referrals: Ankit Turpin MD [Primary Care Provider] - 05/08/24 2:00 pm (Hospital Follow up scheduled for May 08, 2024 at 2:00pm.) Diet: Heart Healthy Addtl Attending Provider Instructions: Do not resume Eliquis until tomorrow morning, 05/04/2024 Pending Studies at Discharge: No Stand-Alone Forms: My [employer], Smoking Cessation Medications and DC Order Prescriptions: Continued aspirin [Jazzy Low Dose Aspirin] 81 mg Tablet,Delayed Release (Dr/Ec) 81 mg PO QAM Qty: 0 atorvastatin 40 mg tablet 20 mg PO HS Qty: 45 3RF Rx Instructions: 1/2 TABLET DOSE nitroglycerin [Nitrostat] 0.4 mg tablet, sublingual 0.4 mg Sublingual DIRECTED PRN (Reason: Chest Pain) Qty: 25 5RF Rx Instructions: PLACE ONE TABLET UNDER THE TONGUE EVERY 5 MINUTES FOR UP TO 3 DOSES FOR CHEST PAIN pantoprazole 40 mg tablet,delayed release (DR/EC) 40 mg PO DAILY Qty: 30 5RF ascorbic acid (vitamin C) 500 mg tablet 500 mg PO Q2D cholecalciferol (vitamin D3) [Vitamin D3] 50 mcg (2,000 unit) capsule 2,000 unit PO QPM triamcinolone acetonide 0.5 % cream See Rx Instructions topical TID PRN (Reason: itching) Qty: 30 1RF Rx Instructions: Apply small amount to right back topical three times a day PRN; albuterol sulfate 90 mcg/actuation HFA aerosol inhaler 2 inh inhalation QID PRN (Reason: shortness of breath or wheezing) Qty: 18 5RF Entresto 97-103 mg tablet 1 tab PO BID Qty: 180 3RF spironolactone 25 mg tablet 25 mg PO DAILY Qty: 90 3RF Centrum Silver Men 300-600-300 mcg tablet 1 tab PO Q2D amoxicillin 500 mg capsule 2,000 mg PO UD PRN (Reason: dental procedure) famotidine 20 mg tablet 20 mg PO DAILY Qty: 90 3RF metoprolol succinate 100 mg tablet extended release 24 hr 50 mg PO BID fluticasone furoate-vilanterol [Breo Ellipta] 200-25 mcg/dose blister with device 1 inh INHALATION DAILY PRN (Reason: WHEEZING/SOB) Eliquis 5 mg Tablet 5 mg PO BID Discharge Orders: Discharge Order (Routine); Ordered 05/03/24 Ordered By: Ankit Altman Admission Data Admit Date/Time: 05/02/24 13:03 Attending Provider: Narayan Morfin Admit Provider: Narayan Morfin Primary Care Provider: Ankit Turpin Other Interventions: *Nursing Shift Assessment Last Done: 05/03/24 11:00 Discharge Summary Assessment (RN) Last Done: 05/03/24 14:25 Coding Level of Care Code 78948 IN/OBS DISCH 30 MIN/LESS Diagnoses Chronic systolic heart failure I50.22 Heart failure chronicity: chronic LBBB (left bundle branch block) I44.7 Coronary artery disease involving [place] coronary artery of [place] heart, angina presence unspecified I25.10 Coronary Disease-Associated Artery/Lesion type: [place] artery [place] vs. transplanted heart: [place] heart Associated angina: angina presence unspecified
[2024-05-03 14:31] VITALS: PULSE 68
--- NOTE | 2024-05-03 14:59 | Electrocardiogram Report ---
Test Reason : Blood Pressure : */* mmHG Vent. Rate : 65 BPM Atrial Rate : * BPM P-R Int : * ms QRS Dur : 172 ms QT Int : 508 ms P-R-T Axes : * 178 17 degrees QTcB Int : 528 ms V-paced rhythm with fusion Abnormal ECG When compared with ECG of 14-Aug-2021 18:53, Electronic ventricular pacemaker has replaced Atrial fibrillation Confirmed by Ankit Altman ([id number]) on 05/03/2024 2:58:56 PM Referred By: Matheus Coronado Confirmed By: Ankit Altman
== END 2024-05-03 14:33 | disposition home or self-care (01) | DRG 277 ==
LOC: EP 11:56 → 4W 13:03 → INTOOBSV 13:03 → OBSVTOIN 13:03
PROC: EPB.ICD (2024-05-02 13:00)